=== PATIENT | female | born 1945 | race Caucasian/White ===

== ENCOUNTER 2019-03-22 09:59 | Inpatient (IN) | payer MEDICARE ==
[~2019-03-22] VITALS: Ht 162.6 cm; Wt 70.3 kg
[2019-03-22 15:00] VITALS: BP 114/62
[2019-03-22] MEDS: LIDOCAINE (700MG/PATCH) PATCH. TD SCH (16:00)
--- NOTE | 2019-03-22 16:00 | NUR ---
Pt admitted from [facility]. Report received from Giselle. Completed admission assessment. Paged Dr Wade for orders. Oriented to room and unit. Call light within reach. Will continue to monitor.
[2019-03-22] MEDS: oxyCODONE/APAP 5/325 1 TAB TABLET PO PRN (17:21)
[2019-03-22] MEDS: CYCLOBENZAPRINE 10 MG TABLET. PO PRN (17:21)
--- NOTE | 2019-03-22 17:39 | PDOC1 ---
History and Physical Date of Admission Date of Admission DATE: 03/22/19 TIME: 17:33 Identification/Chief Complaint Chief Complaint back pain Source Source: Chart review, Patient History of Present Illness History of Present Illness I was called by Dr. Sahni this AM req. this patient in transfer. She had been admitted to [facility] 1.5 days prior for acute back pain, she was mowing her yard, did well, then went to bed, and the next day could not get out of bed. acute pain to lower spinal area, with pain that is worse with movement, and has crampy tendency. the pain wraps around both flanks, not her hips, sensation to the legs is intact, no pain to legs, back and around flank only, 6/10, ok with rest, Past Medical History Past Medical History does not wear her seatbelt Cardiovascular: No pertinent hx Pulmonary: No pertinent hx Past Surgical History Past Surgical History: No pertinent history Family History Family History: Heart Disease Social History Smoke: No ALCOHOL: none Drugs: None Current Medications Current Medications Current Medications Oxycodone/ Acetaminophen (Percocet 5/325) 1 tab PRN Q4HRS PRN PO PAIN Last administered on 03/22/19at 17:21; Start 03/22/19 at 15:30 Cyclobenzaprine HCl (Flexeril) 10 mg PRN Q6HRS PRN PO MUSCLE SPASMS Last administered on 03/22/19at 17:21; Start 03/22/19 at 15:30 Morphine Sulfate (Morphine Sulfate) 4 mg PRN Q2HR PRN IV PAIN; Start 03/22/19 at 15:30 Ketorolac Tromethamine (Toradol 15mg Vial) 15 mg PRN Q6HRS PRN IV PAIN; Start 03/22/19 at 15:30; Stop 03/27/19 at 15:29 Lidocaine (Lidoderm) 1 patch DAILY TD ; Start 03/22/19 at 16:00 Miscellaneous (Lidoderm Patch Removal) 1 ea QHS MC ; Start 03/22/19 at 21:00 Allergies Allergies: Coded Allergies: No Known Drug Allergies (Unverified , 03/22/19) ROS General: YES: Chills; No: Night Sweats, Fatigue, Malaise, Appetite, Other PSYCHOLOGICAL ROS: No: Anxiety, Behavioral Disorder, Concentration difficultie, Decreased libido, Depression, Disorientation, Hallucinations, Hostility, Irritablity, Memory difficulties, Mood Swings, Obsessive thoughts, Physical abuse, Sexual abuse, Sleep disturbances, Suicidal ideation, Other Eyes: No Blurry vision, No Decreased vision, No Double vision, No Dry eyes, No Excessive tearing, No Eye Pain, No Itchy Eyes, No Loss of vision, No Photophobia, No Scotomata, No Uses contacts, No Uses glasses, No Other HEENT: No: Heacaches, Visual Changes, Hearing change, Nasal congestion, Nasal discharge, Oral lesions, Sinus pain, Sore Throat, Epistaxis, Sneezing, Snoring, Tinnitus, Vertigo, Vocal changes, Other Respiratory: No: Cough, Hemoptysis, Orthopnea, Pleuritic Pain, Shortness of breath, SOB with excertion, Sputum Changes, Stridor, Tachypnea, Wheezing, Other Cardiovascular: No Chest Pain, No Palpitations, No Orthopnea, No Paroxysmal Noc. Dyspnea, No Edema, No Lt Headedness, No Other Gastrointestinal: No Nausea, No Vomiting, No Abdominal Pain, No Diarrhea, No Constipation, No Melena, No Hematochezia, No Other Genitourinary: No Dysuria, No Frequency, No Incontinence, No Hematuria, No Retention, No Discharge, No Urgency, No Pain, No Flank Pain, No Other, No , No , No , No , No , No , No Musculoskeletal: No Gait Disturbance, No Joint Pain, No Joint Stiffness, No Joint Swelling, No Muscle Pain, No Muscular Weakness, No Pain In:, No Swelling In:, No Other Neurological: No Behavorial Changes, No Bowel/Bladder ControlChng, No Confusion, No Dizziness, No Gait Disturbance, No Headaches, No Impaired Coord/balance, No Memory Loss, No Numbness/Tingling, No Seizures, No Speech Problems, No Tremors, No Visual Changes, No Weakness, No Other Skin: No Dry Skin, No Eczema, No Hair Changes, No Lumps, No Mole Changes, No Mottling, No Nail Changes, No Pruritus, No Rash, No Skin Lesion Changes, No Other, No Acne Physical Exam General: Alert, Oriented X3, No acute distress HEENT: Atraumatic, PERRLA, EOMI, Mucous membr. moist/pink Lungs: Clear to auscultation, Normal air movement Heart: S1S2, no gallops, no murmurs Abdomen: Normal bowel sounds, Soft Rectal Exam: not examined Extremities: No cyanosis, No edema, Normal pulses Skin: No breakdown, No significant lesion Neuro: Normal gait, Normal speech, Normal tone, Sensation intact, Cranial nerves 3-12 NL Psych/Mental Status: Mood NL Vitals Vitals Vital Signs Date Time Temp Pulse Resp B/P (MAP) Pulse Ox O2 Delivery O2 Flow Rate FiO2 03/22/19 17:21 Room Air 03/22/19 15:00 97.6 99 18 114/62 (79) 96 97.6 VTE Prophylaxis Ordered VTE Prophylaxis Devices: Yes VTE Pharmacological Prophylaxi: Contraindicated Assessment/Plan Assessment/Plan acute back pain, plain film showed possible compression fx at T12, will MRI, physiatry consutled may need kyphoplasty some dyspnea on exertion, with heart murmur, JOSE ROBERTO 3/6, will check echo anemia, hgb 8.5, iron level low, TIBC low as chronic disease, will check b12, retic, consider med workup, does not appear to be blood loss LEIA ELENA MD March 22, 2019 17:39
[2019-03-22 19:00] VITALS: BP 140/84
[2019-03-22] MEDS: PATCH REMOVAL. MC SCH (19:50)
[2019-03-22] MEDS: traZODone 50 MG TABLET. PO SCH (20:53)
[2019-03-22 23:00] VITALS: BP 103/60
[2019-03-23] VITALS (12 sets, daily range): BP systolic 115–150; BP diastolic 61–82
--- NOTE | 2019-03-23 02:53 | CONS ---
DATE OF CONSULTATION: 03/22/2019 ATTENDING PHYSICIAN: Dr. Anand. The patient was seen at the request of Dr. Anand for rehab evaluation. HISTORY OF PRESENT ILLNESS: This is a 73-year-old female patient who was admitted initially on 03/20/2019 to [facility] through the Emergency Room and had radiological studies, which revealed compression fracture of thoracic vertebrae. The patient was transferred here for definitive treatment. The patient admits pain in her mid back, started about a week ago without any specific injury and it radiates to her anterior chest wall. She denies any radiation of pain to the extremities. She denies any tingling, numbness sensation in the extremities. The patient had similar back pain about 4 years ago, got better with the treatment. PAST MEDICAL HISTORY: Includes gastroesophageal reflux disease, previous urinary tract infection, rheumatoid arthritis, anxiety. 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 She denies any specific injury or accident. The patient denies any trouble with her bowel or bladder control. She had a flight of stairs with railing in place at home to manage and prior to the onset of present problem, she is not using any assistive devices to get around. PHYSICAL EXAMINATION: Today revealed a middle-aged female. She is alert, oriented to time, place, person and circumstance and follows commands appropriately. She had tenderness to palpation over mid thoracic spine and adjoining paraspinal muscles. Straight leg raising test is negative bilaterally. She had 5/5 grade muscle strength in her extremities and deep tendon reflexes are 1 to 2+ and symmetrical and she had equal perception of touch and pinprick sensation bilaterally. She is independent with rolling from side to side, but she is afraid of coming to a sitting and standing position. She had mild crepitus on range of motion of her knee joint without any obvious knee joint effusion and she had painful range of motion of both hip joints. ASSESSMENT: A middle-aged female with sudden onset lower back pain about a week ago with radiological evidence of mid thoracic vertebral body compression fracture and thoracic radiculitis, degenerative joint disease of both knees without much pain. RECOMMENDATIONS: To obtain MRI scan of the thoracic spine and to ask Interventional Radiology to consider kyphoplasty if there is a new compression fracture. Agree with the plan for physical therapy and occupational therapy. Dr. Anand, I appreciate asking me to participate in the care of this interesting patient. I will be glad to follow her with you as needed for her rehabilitation. EVIE BHATTI MD DR: CLAUDE/flor JOB#: [id number] / [id number]
[2019-03-23] MEDS: oxyCODONE/APAP 5/325 1 TAB TABLET PO PRN ×3 (03:19→19:57)
[2019-03-23] MEDS: CYCLOBENZAPRINE 10 MG TABLET. PO PRN (03:19)
[2019-03-23 05:32] LABS: BASO % 0 % (0-3); EOS # 0.1 x10^3/uL (0.0-0.7); EOS % 1 % (0-3); HEMATOCRIT 24.7 % (36.0-47.0); HEMOGLOBIN 8.1 g/dL (12.0-15.5); LYMPH # 0.6 x10^3/uL (1.0-4.8); LYMPH % 8 % (24-48); MEAN CORPUSCULAR HEMOGLOBIN 28 pg (25-35); MEAN CORPUSCULAR HGB CONC 33 g/dL (31-37); MEAN CORPUSCULAR VOLUME 84 fL (79-100); MONO # 0.8 x10^3/uL (0.0-1.1); MONO % 10 % (0-9); NEUT # 5.8 x10^3uL (1.8-7.7); NEUT % 80 % (31-73); PLATELET COUNT 261 x10^3/uL (140-400); RED BLOOD COUNT 2.94 x10^6/uL (3.50-5.40); RED CELL DISTRIBUTION WIDTH 15.6 % (11.5-14.5); WHITE BLOOD COUNT 7.3 x10^3/uL (4.0-11.0)
[2019-03-23 05:43] LABS: ALBUMIN 2.5 g/dL (3.4-5.0); ALBUMIN/GLOBULIN RATIO 0.8 (1.0-1.7); CALCIUM 8.4 mg/dL (8.5-10.1); CREATININE 0.6 mg/dL (0.6-1.0); GFR 98.5; POTASSIUM 4.2 mmol/L (3.5-5.1); TOTAL BILIRUBIN 0.4 mg/dL (0.2-1.0); TOTAL PROTEIN 5.6 g/dL (6.4-8.2)
[2019-03-23] MEDS: LIDOCAINE (700MG/PATCH) PATCH. TD SCH (07:34)
--- NOTE | 2019-03-23 08:17 | PDOC ---
PROGRESS NOTES Chief Complaint Chief Complaint Acute back pain, plain film showed possible compression fx at T12, will MRI, physiatry consulted - may need kyphoplasty or treatment for discitis, will check sed rate and crp, consult ID Heart murmur - possible mitral valve flair leaflet, consult cardiology Anemia, hgb 8.5, iron level low, TIBC low as chronic disease, b12 WNL, retic WNL, possibly hemolyzing from flail valve or possibly with infection of spine History of Present Illness History of Present Illness She had been admitted to [place] 1.5 days prior for acute back pain, she was mowing her yard, did well, then went to bed, and the next day could not get out of bed. Acute pain to lower spinal area, with pain that is worse with movement, and has crampy tendency. the pain wraps around both flanks, not her hips, sensation to the legs is intact, no pain to legs, back and around flank only, 6/10, ok with rest. She was noted with anemia, echo reviewed showing mitral regurgitation, discussed need for MRI and ADALBERTO today Vitals Vitals Vital Signs Date Time Temp Pulse Resp B/P (MAP) Pulse Ox O2 Delivery O2 Flow Rate FiO2 03/23/19 07:38 Room Air 03/23/19 03:19 16 03/23/19 03:00 97.9 113 150/79 (102) 91 97.9 Physical Exam General: Alert, Oriented X3, No acute distress Abdomen: Normal bowel sounds, Soft Extremities: No cyanosis, No edema, Normal pulses Skin: No breakdown, No significant lesion Labs LABS Laboratory Tests Test 03/23/19 05:00 White Blood Count 7.3 x10^3/uL (4.0-11.0) Red Blood Count 2.93 x10^6/uL (3.50-5.70) Hemoglobin 8.1 g/dL (12.0-15.5) Hematocrit 24.7 % (36.0-47.0) Mean Corpuscular Volume 84 fL (79-100) Mean Corpuscular Hemoglobin 28 pg (25-35) Mean Corpuscular Hemoglobin Concent 33 g/dL (31-37) Red Cell Distribution Width 15.6 % (11.5-14.5) Platelet Count 261 x10^3/uL (140-400) Neutrophils (%) (Auto) 80 % (31-73) Lymphocytes (%) (Auto) 8 % (24-48) Monocytes (%) (Auto) 10 % (0-9) Eosinophils (%) (Auto) 1 % (0-3) Basophils (%) (Auto) 0 % (0-3) Neutrophils # (Auto) 5.8 x10^3uL (1.8-7.7) Lymphocytes # (Auto) 0.6 x10^3/uL (1.0-4.8) Monocytes # (Auto) 0.8 x10^3/uL (0.0-1.1) Eosinophils # (Auto) 0.1 x10^3/uL (0.0-0.7) Basophils # (Auto) 0.0 x10^3/uL (0.0-0.2) Absolute Reticulocyte Count 0.083 x10^6/uL (0.020-0.120) Percent Reticulocyte Count 2.8 % (0.5-2.3) Immature Reticulocyte Fraction 0.52 (0.20-0.60) Sodium Level 133 mmol/L (136-145) Potassium Level 4.2 mmol/L (3.5-5.1) Chloride Level 98 mmol/L (98-107) Carbon Dioxide Level 27 mmol/L (21-32) Anion Gap 8 (6-14) Blood Urea Nitrogen 5 mg/dL (7-20) Creatinine 0.6 mg/dL (0.6-1.0) Estimated GFR (Cockcroft-Gault) 98.5 BUN/Creatinine Ratio 8 (6-20) Glucose Level 111 mg/dL (70-99) Calcium Level 8.4 mg/dL (8.5-10.1) Total Bilirubin 0.4 mg/dL (0.2-1.0) Aspartate Amino Transf (AST/SGOT) 53 U/L (15-37) Alanine Aminotransferase (ALT/SGPT) 78 U/L (14-59) Alkaline Phosphatase 196 U/L (46-116) Lactate Dehydrogenase 280 U/L (81-234) Total Protein 5.6 g/dL (6.4-8.2) Albumin 2.5 g/dL (3.4-5.0) Albumin/Globulin Ratio 0.8 (1.0-1.7) Comment Review of Relevant I have reviewed the following items tolu (where applicable) has been applied. Labs Laboratory Tests Test 03/23/19 05:00 White Blood Count 7.3 x10^3/uL (4.0-11.0) Red Blood Count 2.93 x10^6/uL (3.50-5.70) Hemoglobin 8.1 g/dL (12.0-15.5) Hematocrit 24.7 % (36.0-47.0) Mean Corpuscular Volume 84 fL (79-100) Mean Corpuscular Hemoglobin 28 pg (25-35) Mean Corpuscular Hemoglobin Concent 33 g/dL (31-37) Red Cell Distribution Width 15.6 % (11.5-14.5) Platelet Count 261 x10^3/uL (140-400) Neutrophils (%) (Auto) 80 % (31-73) Lymphocytes (%) (Auto) 8 % (24-48) Monocytes (%) (Auto) 10 % (0-9) Eosinophils (%) (Auto) 1 % (0-3) Basophils (%) (Auto) 0 % (0-3) Neutrophils # (Auto) 5.8 x10^3uL (1.8-7.7) Lymphocytes # (Auto) 0.6 x10^3/uL (1.0-4.8) Monocytes # (Auto) 0.8 x10^3/uL (0.0-1.1) Eosinophils # (Auto) 0.1 x10^3/uL (0.0-0.7) Basophils # (Auto) 0.0 x10^3/uL (0.0-0.2) Absolute Reticulocyte Count 0.083 x10^6/uL (0.020-0.120) Percent Reticulocyte Count 2.8 % (0.5-2.3) Immature Reticulocyte Fraction 0.52 (0.20-0.60) Sodium Level 133 mmol/L (136-145) Potassium Level 4.2 mmol/L (3.5-5.1) Chloride Level 98 mmol/L (98-107) Carbon Dioxide Level 27 mmol/L (21-32) Anion Gap 8 (6-14) Blood Urea Nitrogen 5 mg/dL (7-20) Creatinine 0.6 mg/dL (0.6-1.0) Estimated GFR (Cockcroft-Gault) 98.5 BUN/Creatinine Ratio 8 (6-20) Glucose Level 111 mg/dL (70-99) Calcium Level 8.4 mg/dL (8.5-10.1) Total Bilirubin 0.4 mg/dL (0.2-1.0) Aspartate Amino Transf (AST/SGOT) 53 U/L (15-37) Alanine Aminotransferase (ALT/SGPT) 78 U/L (14-59) Alkaline Phosphatase 196 U/L (46-116) Lactate Dehydrogenase 280 U/L (81-234) Total Protein 5.6 g/dL (6.4-8.2) Albumin 2.5 g/dL (3.4-5.0) Albumin/Globulin Ratio 0.8 (1.0-1.7) Laboratory Tests Test 03/23/19 05:00 White Blood Count 7.3 x10^3/uL (4.0-11.0) Red Blood Count 2.93 x10^6/uL (3.50-5.70) Hemoglobin 8.1 g/dL (12.0-15.5) Hematocrit 24.7 % (36.0-47.0) Mean Corpuscular Volume 84 fL (79-100) Mean Corpuscular Hemoglobin 28 pg (25-35) Mean Corpuscular Hemoglobin Concent 33 g/dL (31-37) Red Cell Distribution Width 15.6 % (11.5-14.5) Platelet Count 261 x10^3/uL (140-400) Neutrophils (%) (Auto) 80 % (31-73) Lymphocytes (%) (Auto) 8 % (24-48) Monocytes (%) (Auto) 10 % (0-9) Eosinophils (%) (Auto) 1 % (0-3) Basophils (%) (Auto) 0 % (0-3) Neutrophils # (Auto) 5.8 x10^3uL (1.8-7.7) Lymphocytes # (Auto) 0.6 x10^3/uL (1.0-4.8) Monocytes # (Auto) 0.8 x10^3/uL (0.0-1.1) Eosinophils # (Auto) 0.1 x10^3/uL (0.0-0.7) Basophils # (Auto) 0.0 x10^3/uL (0.0-0.2) Absolute Reticulocyte Count 0.083 x10^6/uL (0.020-0.120) Percent Reticulocyte Count 2.8 % (0.5-2.3) Immature Reticulocyte Fraction 0.52 (0.20-0.60) Sodium Level 133 mmol/L (136-145) Potassium Level 4.2 mmol/L (3.5-5.1) Chloride Level 98 mmol/L (98-107) Carbon Dioxide Level 27 mmol/L (21-32) Anion Gap 8 (6-14) Blood Urea Nitrogen 5 mg/dL (7-20) Creatinine 0.6 mg/dL (0.6-1.0) Estimated GFR (Cockcroft-Gault) 98.5 BUN/Creatinine Ratio 8 (6-20) Glucose Level 111 mg/dL (70-99) Calcium Level 8.4 mg/dL (8.5-10.1) Total Bilirubin 0.4 mg/dL (0.2-1.0) Aspartate Amino Transf (AST/SGOT) 53 U/L (15-37) Alanine Aminotransferase (ALT/SGPT) 78 U/L (14-59) Alkaline Phosphatase 196 U/L (46-116) Lactate Dehydrogenase 280 U/L (81-234) Total Protein 5.6 g/dL (6.4-8.2) Albumin 2.5 g/dL (3.4-5.0) Albumin/Globulin Ratio 0.8 (1.0-1.7) Medications Current Medications Oxycodone/ Acetaminophen (Percocet 5/325) 1 tab PRN Q4HRS PRN PO PAIN Last administered on 03/23/19at 07:34; Start 03/22/19 at 15:30 Cyclobenzaprine HCl (Flexeril) 10 mg PRN Q6HRS PRN PO MUSCLE SPASMS Last administered on 03/23/19at 03:19; Start 03/22/19 at 15:30 Morphine Sulfate (Morphine Sulfate) 4 mg PRN Q2HR PRN IV PAIN; Start 03/22/19 at 15:30 Ketorolac Tromethamine (Toradol 15mg Vial) 15 mg PRN Q6HRS PRN IV PAIN; Start 03/22/19 at 15:30; Stop 03/27/19 at 15:29 Lidocaine (Lidoderm) 1 patch DAILY TD Last administered on 03/23/19at 07:34; Start 03/22/19 at 16:00 Miscellaneous (Lidoderm Patch Removal) 1 ea QHS MC ; Start 03/22/19 at 21:00 Trazodone HCl (Desyrel) 50 mg QHS PO Last administered on 03/22/19at 20:53; Start 03/22/19 at 21:00 Active Scripts Active Reported No Known Medications Prior To Admisstion (Info) Each 1 Each MC DAILY Vitals/I & O Vital Sign - Last 24 Hours 03/22/19 03/22/19 03/22/19 03/22/19 15:00 16:30 17:21 19:00 Temp 97.6 98.5 97.6 98.5 Pulse 99 100 Resp 18 18 B/P (MAP) 114/62 (79) 140/84 (102) Pulse Ox 96 94 O2 Delivery Room Air Room Air Room Air Room Air 03/22/19 03/22/19 03/23/19 03/23/19 20:00 23:00 03:00 03:19 Temp 98.6 97.9 98.6 97.9 Pulse 107 113 Resp 18 18 16 B/P (MAP) 103/60 (74) 150/79 (102) Pulse Ox 91 91 O2 Delivery Room Air Room Air Room Air Room Air 03/23/19 03/23/19 03/23/19 04:30 07:34 07:38 O2 Delivery Room Air Room Air Room Air Intake and Output 03/22/19 03/22/19 03/23/19 14:59 22:59 06:59 Intake Total 224 ml 120 ml Balance 224 ml 120 ml Images MRI Thoracic spine - 1. There is old T12 compression fracture, osseous retropulsion superiorly with mild indentation upon the ventral thecal sac. 2. There is T10-T11 endplate edema greater on the left, also some mild increased signal in the T10-T11 intervertebral disc space greater on the left. While findings could be related to degenerative disc disease and reactive marrow edema, sequela of early infectious spondylitis is not excludable by imaging. Short-term follow-up imaging such as in 10 days could be beneficial if clinical suspicion for infection. BRIAN SALAS MD March 23, 2019 08:17
--- NOTE | 2019-03-23 09:36 | CARD ---
MR#: [id number] Date of Study: 03/23/2019 Ordering Physician: LEIA ELENA, Referring Physician: LEIA ELENA, Tech: Angelita Marie PRIYANKA APPROVED REPORT EXAM: Two-dimensional and M-mode echocardiogram with Doppler and color Doppler. Other Information Quality : GoodHR: 105bpm Rhythm : Tachycardia INDICATION Murmur 2D DIMENSIONS RVDd3.4 (2.9-3.5cm)Left Atrium(2D)4.1 (1.6-4.0cm) IVSd1.4 (0.7-1.1cm)Aortic Root(2D)3.8 (2.0-3.7cm) LVDd4.7 (3.9-5.9cm)LVOT Diameter2.2 (1.8-2.4cm) PWd1.0 (0.7-1.1cm)LVDs3.0 (2.5-4.0cm) FS (%) 36.9 %SV68.1 ml LVEF(%)66.7 (>50%) M-Mode DIMENSIONS Left Atrium(MM)4.44 (2.5-4.0cm)Aortic Root3.54 (2.2-3.7cm) Aortic Valve AoV Peak Abel.174.9cm/sAoV VTI25.0cm AO Peak GR.12.2mmHgLVOT Peak Abel.88.9cm/s AO Mean GR.6mmHgAVA (VMAX)1.96cm2 LAINA (VTI)2.00cm2 Mitral Valve MV E Qjsdgkyc153.3cm/sMV E Peak Gr.6mmHg MV DECEL [id number] A Dgueptbl20.6cm/s MV E Mean Gr.3mmHgE/A Ratio1.7 Pulmonary Valve PV Peak Tkvgqjqz209.3cm/s Tricuspid Valve TR P. Txfgsjfy812ri/sRAP [id number] TR Peak Gr.05moYvYRTX46slDx LEFT VENTRICLE The left ventricle is normal size. There is mild concentric left ventricular hypertrophy. The left ve ntricular systolic function is normal and the ejection fraction is within normal range. The Ejection Fraction is 60-65%. There is normal LV segmental wall motion. Transmitral Doppler flow pattern is Gra de II-pseudonormal filling dynamics. RIGHT VENTRICLE The right ventricle is normal size. There is normal right ventricular wall thickness. The right ventr icular systolic function is normal. ATRIA The left atrium is mildly dilated. The right atrium size is normal. The interatrial septum is intact with no evidence for an atrial septal defect or patent foramen ovale as noted on 2-D or Doppler imagi ng. AORTIC VALVE The aortic valve is mildly calcified. The aortic valve is trileaflet. Doppler and Color Flow revealed no significant aortic regurgitation. There is no significant aortic valvular stenosis. MITRAL VALVE The mitral valve is thickened but opens well. There is a partially flail posterior mitral valve leafl et. There is no mitral valve stenosis. Doppler and Color-flow revealed moderate mitral regurgitation. The mitral regurgitant jet is eccentrically directed. TRICUSPID VALVE The tricuspid valve is normal in structure and function. Doppler and Color Flow revealed trace tricus pid regurgitation. There is mild-moderate pulmonary hypertension. The PA pressure was estimated at 40 mmHg. There is no tricuspid valve prolapse or vegetation. There is no tricuspid valve stenosis. PULMONIC VALVE The pulmonary valve is normal in structure and function. Doppler and Color Flow revealed trace pulmon ic valvular regurgitation. There is no pulmonic valvular stenosis. GREAT VESSELS The aortic root is mildly enlarged. The ascending aorta is normal in size. The IVC is normal in size and collapses >50% with inspiration. PERICARDIAL EFFUSION There is no evidence of significant pericardial effusion. Critical Notification Critical Value: No <Conclusion> There is mild concentric left ventricular hypertrophy. The left ventricular systolic function is normal and the ejection fraction is within normal range. Th e Ejection Fraction is 60-65%. There is normal LV segmental wall motion. There is a partially flail posterior mitral valve leaflet. Doppler and Color-flow revealed moderate mitral regurgitation. The mitral regurgitant jet is eccentr ically directed. Recommend ADALBERTO based on clinical scenario for further evaluation of posterior leaflet flail. Signed by : Lico Chase, Electronically Approved : 03/23/2019 09:35:10
[2019-03-23] MEDS: MORPHINE SULFATE 4 MG/ML VIAL. IV PRN ×3 (10:12→16:47)
--- NOTE | 2019-03-23 11:34 | RAD ---
MRI Thoracic Spine without contrast History: Mid back pain, thoracic radiculitis, T12 compression fracture Technique: Multiplanar, multi sequential noncontrast MR imaging was performed of the thoracic spine. Comparison: None other than CT lumbar spine exam March 20, 2019 Findings: There is some motion degradation. There is old T12 compression fracture, osseous retropulsion superiorly which indents the ventral thecal sac, overall mild attenuation of the thecal sac. There is edema of the T10-T11 endplates greater on the left, mild increased T2 and STIR signal in the T10-T11 intervertebral disc space greater on the left. There is mild superior endplate concavity of T10 although not associated with significant adjacent marrow edema. There is more advanced degenerative disc disease T7-8, also moderate to severe narrowing of T10-T11 intervertebral disc space, to a somewhat lesser degree at T5-T6, minimally at T6-T7 and T8-T9. Thoracic cord caliber is within normal limits without defined or expansile signal abnormality. There is minimal disc osteophyte complex and shallow protrusion at T10-T11. There is buckling of the ligamentum flavum at T10-11, overall mild attenuation of the thecal sac at this level. Facet degenerative change contributes to moderate narrowing of the left T10-T11 neural foramen, mild narrowing on the left at T7-T8 and also mild narrowing such on the right at T8-T9, T9-10, T10-T11, and T4-T5. As seen at the superior aspect of exam, there is cervical degenerative disc disease greatest C5-6 and C6-7 also spondylosis at these levels and likely mild spinal stenosis. There is very small right pleural effusion. Impression: 1. There is old T12 compression fracture, osseous retropulsion superiorly with mild indentation upon the ventral thecal sac. 2. There is T10-T11 endplate edema greater on the left, also some mild increased signal in the T10-T11 intervertebral disc space greater on the left. While findings could be related to degenerative disc disease and reactive marrow edema, sequela of early infectious spondylitis is not excludable by imaging. Short-term follow-up imaging such as in 10 days could be beneficial if clinical suspicion for infection. 3. Electronically signed by: Hernan So MD (03/23/2019 11:31 AM) [id number]
--- NOTE | 2019-03-23 11:42 | PDOC2 ---
ESTHER BUSTILLOS [employer] 03/23/19 1142: CARDIAC CONSULT DATE OF CONSULT Date of Consult DATE: 03/23/19 TIME: 11:39 REASON FOR CONSULT Reason for Consult: echo with flair mitral, ADALBERTO REFERRING PHYSICIAN Referring Physician: Mauro SOURCE Source: Chart review, Patient HISTORY OF PRESENT ILLNESS HISTORY OF PRESENT ILLNESS This is a pleasant 73 yo female admitted for complains of back pain. She came from [place]. She push mow her lawn few days ago and she finished the job but her back started hurting. She push mows her law once a week without difficulty. Denies any chest pain, SOA, palpitations. No mention of her having a murmur but has not been see regularly by PCP for about 5 yrs prior to her seeing Dr. Sahni. She does not take any medications except for supplement and does have malabsorption issues taking enzymes. She was told that she was anemic as well. No prior hx of CAD, arrhythmias, valvular disease and no prior cardiac testin. No frequent dizziness or passing out. Asid efrom her back which she is needing kyphoplasty, the consult is for her abnormal mitral valve with loud murmur. So far she remains asymptomatic with it. No childhood heart disease nor rheumatic heart disease but does have RA which is in remission. PAST MEDICAL HISTORY Cardiovascular: HTN, Other (palpitations 5 yrs ago) Pulmonary: No pertinent hx CENTRAL NERVOUS SYSTEM: Other (No pertinent history) GI: GERD, Other (malabsorption ) Heme/Onc: Anemia NOS Hepatobiliary: No pertinent hx Musculoskeletal: Osteoarthritis Rheumatologic: No pertinent hx, Rheumatoid arthritis Infectious disease: No pertinent hx ENT: Allergic Rhinitis Renal/: No pertinent hx Endocrine: No pertinent hx PAST SURGICAL HISTORY Past Surgical History: Tubal Ligation FAMILY HISTORY Family History noncontributory to CV SOCIAL HISTORY Smoke: <1 pack per day ALCOHOL: none Drugs: None Lives: Alone CURRENT MEDICATIONS CURRENT MEDICATIONS Current Medications Medications (Trade) Dose Ordered Sig/Rosina Route PRN Reason Start Time Stop Time Status Last Admin Dose Admin Oxycodone/ Acetaminophen (Percocet 5/325) 1 tab PRN Q4HRS PRN PO PAIN 03/22/19 15:30 03/23/19 07:34 Cyclobenzaprine HCl (Flexeril) 10 mg PRN Q6HRS PRN PO MUSCLE SPASMS 03/22/19 15:30 03/23/19 03:19 Morphine Sulfate (Morphine Sulfate) 4 mg PRN Q2HR PRN IV PAIN 03/22/19 15:30 03/23/19 10:12 Lidocaine (Lidoderm) 1 patch DAILY TD 03/22/19 16:00 03/23/19 07:34 Trazodone HCl (Desyrel) 50 mg QHS PO 03/22/19 21:00 03/22/19 20:53 ALLERGIES ALLERGIES: Coded Allergies: No Known Drug Allergies (Unverified , 03/22/19) ROS Review of System 14 point ROS evaluated with pertinent positives noted per HPI PHYSICAL EXAM General: Alert, Oriented X3, Cooperative, No acute distress HEENT: Atraumatic, EOMI Lungs: Clear to auscultation, Normal air movement Heart: Regular rate (SR) Abdomen: Soft, No tenderness Extremities: No cyanosis, Other (1+bilateral LE pitting edema) Skin: No breakdown, No significant lesion Neuro: Normal speech, Sensation intact Psych/Mental Status: Mental status NL, Mood NL MUSCULOSKELETAL: Osteoarthritic changes both hands VITALS VITALS Vital Signs Date Time Temp Pulse Resp B/P (MAP) Pulse Ox O2 Delivery O2 Flow Rate FiO2 03/23/19 10:12 Room Air 03/23/19 07:00 98.0 105 16 120/61 (80) 91 98.0 LABS Lab: Laboratory Tests Test 03/23/19 05:00 White Blood Count 7.3 x10^3/uL (4.0-11.0) Red Blood Count 2.93 x10^6/uL (3.50-5.70) Hemoglobin 8.1 g/dL (12.0-15.5) Hematocrit 24.7 % (36.0-47.0) Mean Corpuscular Volume 84 fL (79-100) Mean Corpuscular Hemoglobin 28 pg (25-35) Mean Corpuscular Hemoglobin Concent 33 g/dL (31-37) Red Cell Distribution Width 15.6 % (11.5-14.5) Platelet Count 261 x10^3/uL (140-400) Neutrophils (%) (Auto) 80 % (31-73) Lymphocytes (%) (Auto) 8 % (24-48) Monocytes (%) (Auto) 10 % (0-9) Eosinophils (%) (Auto) 1 % (0-3) Basophils (%) (Auto) 0 % (0-3) Neutrophils # (Auto) 5.8 x10^3uL (1.8-7.7) Lymphocytes # (Auto) 0.6 x10^3/uL (1.0-4.8) Monocytes # (Auto) 0.8 x10^3/uL (0.0-1.1) Eosinophils # (Auto) 0.1 x10^3/uL (0.0-0.7) Basophils # (Auto) 0.0 x10^3/uL (0.0-0.2) Absolute Reticulocyte Count 0.083 x10^6/uL (0.020-0.120) Percent Reticulocyte Count 2.8 % (0.5-2.3) Immature Reticulocyte Fraction 0.52 (0.20-0.60) Sodium Level 133 mmol/L (136-145) Potassium Level 4.2 mmol/L (3.5-5.1) Chloride Level 98 mmol/L (98-107) Carbon Dioxide Level 27 mmol/L (21-32) Anion Gap 8 (6-14) Blood Urea Nitrogen 5 mg/dL (7-20) Creatinine 0.6 mg/dL (0.6-1.0) Estimated GFR (Cockcroft-Gault) 98.5 BUN/Creatinine Ratio 8 (6-20) Glucose Level 111 mg/dL (70-99) Calcium Level 8.4 mg/dL (8.5-10.1) Iron Level 23 ug/dL (50-170) Total Iron Binding Capacity 177 ug/dL (250-450) Iron Saturation 13 % (15-34) Total Bilirubin 0.4 mg/dL (0.2-1.0) Aspartate Amino Transf (AST/SGOT) 53 U/L (15-37) Alanine Aminotransferase (ALT/SGPT) 78 U/L (14-59) Alkaline Phosphatase 196 U/L (46-116) Lactate Dehydrogenase 280 U/L (81-234) Total Protein 5.6 g/dL (6.4-8.2) Albumin 2.5 g/dL (3.4-5.0) Albumin/Globulin Ratio 0.8 (1.0-1.7) Vitamin B12 Level 1077 pg/mL (247-911) ECHOCARDIOGRAM ECHOCARDIOGRAM <Conclusion> There is mild concentric left ventricular hypertrophy. The left ventricular systolic function is normal and the ejection fraction is within normal range. The Ejection Fraction is 60-65%. There is normal LV segmental wall motion. There is a partially flail posterior mitral valve leaflet. Doppler and Color-flow revealed moderate mitral regurgitation. The mitral regurgitant jet is eccentrically directed. Recommend ADALBERTO based on clinical scenario for further evaluation of posterior leaflet flail. DATE: 03/23/19 0966 ASSESSMENT/PLAN ASSESSMENT/PLAN 1. Moderate MR with flail posterior MV: EF and WM nml. No symptoms. 2. Mid Back pain thoracic compression possible kyphoplasty 3. Normocytic anemia: Hgb 8.1, per PCP 4. Protein malnutrition 5. Hx of HTN: controlled, no meds 6. Hx of RA: in remission 7. Tobaccoism Recommendations 1. ADALBERTO today for further dlineation. Risks and benefits explained and agreeable to proceed. 2. Supportive care. Follow up in office. 3. EKG and lipids today. 4. Smoking cessation EMILY SOTELO MD 03/23/19 5296: CARDIAC CONSULT ASSESSMENT/PLAN ASSESSMENT/PLAN Pt. seen and examined. Agree with above RN NEONATAL note. 73 y.o woman with incidental partial posterior leaflet flail. No prior cardiac history. Discussed risks/benefits of ADALBERTO inpt versus outpt. She prefers to get this accomplished inpt. Plan for ADALBERTO later today. ESTHER BUSTILLOS APRN March 23, 2019 11:42 EMILY SOTELO MD March 23, 2019 14:56
[2019-03-23] MEDS ORDERED: IV RINGERS,LACTATED 1000ML 1,000 ML IV SCH (12:57)
[2019-03-23] MEDS ORDERED: ONDANSETRON PF 4 MG/2 ML VIAL. IV PRN (13:00)
[2019-03-23] MEDS ORDERED: PROCHLORPERAZINE 10 MG/2 ML VIAL. IV PRN (13:00)
[2019-03-23] MEDS ORDERED: fentaNYL PF VIAL 100 MCG/2 ML VIAL IV PRN ×2 (13:00)
[2019-03-23] MEDS ORDERED: HYDROmorphone 2 MG/ML VIAL IV PRN (13:00)
[2019-03-23] MEDS ORDERED: MORPHINE SULFATE 2 MG/ML VIAL. IV PRN (13:00)
--- NOTE | 2019-03-23 13:21 | NUR ---
SW will continue to follow. Discussed with RN, pt is from home with daughter. Had MRI this morning, possibility of a kyphoplasty. Pt having some cardiac problems, ADALBERTO at 1430. PT/OT ordered. SW will continue to follow.
--- NOTE | 2019-03-23 13:40 | EKG ---
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
[2019-03-23] MEDS: fentaNYL 25MCG/HR PATCH 1 PATCH PATCH.TD72 TD SCH (13:45)
[2019-03-23] MEDS ORDERED: BENZOCAINE ONE 20% MUCOSAL SPRAY. MM (13:45)
[2019-03-23] MEDS ORDERED: LIDOCAINE 2% JELLY 6ML IN APPLICATOR. MM ONE (13:45)
[2019-03-23] MEDS ORDERED: LIDOCAINE 2% VISCOUS 15 ML SOLUTION. SWSW ONE (13:45)
[2019-03-23] MEDS ORDERED: LIDOCAINE 2% VISCOUS 15 ML SOLUTION. ONE (13:51)
[2019-03-23] MEDS ORDERED: LIDOCAINE 2% TOPICAL JELLY 30GM TUBE. TP ONE (14:00)
[2019-03-23 14:03] LABS: CHOLESTEROL/HDL RATIO 6.8
[2019-03-23] MEDS ORDERED: PROPOFOL 20 ML IV ONE (14:44)
--- NOTE | 2019-03-23 16:14 | PDOC ---
PROGRESS NOTES Subjective Subjective No new complaints. 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 Plan Plan of Care Agree with plans for infectious disease consult and I spoke to about cancelling kyphoplasty. Comment Review of Relevant I have reviewed the following items tolu (where applicable) has been applied. Labs Laboratory Tests Test 03/23/19 05:00 White Blood Count 7.3 x10^3/uL (4.0-11.0) Red Blood Count 2.93 x10^6/uL (3.50-5.70) Hemoglobin 8.1 g/dL (12.0-15.5) Hematocrit 24.7 % (36.0-47.0) Mean Corpuscular Volume 84 fL (79-100) Mean Corpuscular Hemoglobin 28 pg (25-35) Mean Corpuscular Hemoglobin Concent 33 g/dL (31-37) Red Cell Distribution Width 15.6 % (11.5-14.5) Platelet Count 261 x10^3/uL (140-400) Neutrophils (%) (Auto) 80 % (31-73) Lymphocytes (%) (Auto) 8 % (24-48) Monocytes (%) (Auto) 10 % (0-9) Eosinophils (%) (Auto) 1 % (0-3) Basophils (%) (Auto) 0 % (0-3) Neutrophils # (Auto) 5.8 x10^3uL (1.8-7.7) Lymphocytes # (Auto) 0.6 x10^3/uL (1.0-4.8) Monocytes # (Auto) 0.8 x10^3/uL (0.0-1.1) Eosinophils # (Auto) 0.1 x10^3/uL (0.0-0.7) Basophils # (Auto) 0.0 x10^3/uL (0.0-0.2) Absolute Reticulocyte Count 0.083 x10^6/uL (0.020-0.120) Percent Reticulocyte Count 2.8 % (0.5-2.3) Immature Reticulocyte Fraction 0.52 (0.20-0.60) Sodium Level 133 mmol/L (136-145) Potassium Level 4.2 mmol/L (3.5-5.1) Chloride Level 98 mmol/L (98-107) Carbon Dioxide Level 27 mmol/L (21-32) Anion Gap 8 (6-14) Blood Urea Nitrogen 5 mg/dL (7-20) Creatinine 0.6 mg/dL (0.6-1.0) Estimated GFR (Cockcroft-Gault) 98.5 BUN/Creatinine Ratio 8 (6-20) Glucose Level 111 mg/dL (70-99) Calcium Level 8.4 mg/dL (8.5-10.1) Iron Level 23 ug/dL (50-170) Total Iron Binding Capacity 177 ug/dL (250-450) Iron Saturation 13 % (15-34) Total Bilirubin 0.4 mg/dL (0.2-1.0) Aspartate Amino Transf (AST/SGOT) 53 U/L (15-37) Alanine Aminotransferase (ALT/SGPT) 78 U/L (14-59) Alkaline Phosphatase 196 U/L (46-116) Lactate Dehydrogenase 280 U/L (81-234) Total Protein 5.6 g/dL (6.4-8.2) Albumin 2.5 g/dL (3.4-5.0) Albumin/Globulin Ratio 0.8 (1.0-1.7) Triglycerides Level 117 mg/dL (0-150) Cholesterol Level 135 mg/dL (0-200) LDL Cholesterol, Calculated 92 mg/dL (0-100) VLDL Cholesterol, Calculated 23 mg/dL (0-40) Non-HDL Cholesterol Calculated 115 mg/dL (0-129) HDL Cholesterol 20 mg/dL (40-60) Cholesterol/HDL Ratio 6.8 Vitamin B12 Level 1077 pg/mL (247-911) Laboratory Tests Test 03/23/19 05:00 White Blood Count 7.3 x10^3/uL (4.0-11.0) Red Blood Count 2.93 x10^6/uL (3.50-5.70) Hemoglobin 8.1 g/dL (12.0-15.5) Hematocrit 24.7 % (36.0-47.0) Mean Corpuscular Volume 84 fL (79-100) Mean Corpuscular Hemoglobin 28 pg (25-35) Mean Corpuscular Hemoglobin Concent 33 g/dL (31-37) Red Cell Distribution Width 15.6 % (11.5-14.5) Platelet Count 261 x10^3/uL (140-400) Neutrophils (%) (Auto) 80 % (31-73) Lymphocytes (%) (Auto) 8 % (24-48) Monocytes (%) (Auto) 10 % (0-9) Eosinophils (%) (Auto) 1 % (0-3) Basophils (%) (Auto) 0 % (0-3) Neutrophils # (Auto) 5.8 x10^3uL (1.8-7.7) Lymphocytes # (Auto) 0.6 x10^3/uL (1.0-4.8) Monocytes # (Auto) 0.8 x10^3/uL (0.0-1.1) Eosinophils # (Auto) 0.1 x10^3/uL (0.0-0.7) Basophils # (Auto) 0.0 x10^3/uL (0.0-0.2) Absolute Reticulocyte Count 0.083 x10^6/uL (0.020-0.120) Percent Reticulocyte Count 2.8 % (0.5-2.3) Immature Reticulocyte Fraction 0.52 (0.20-0.60) Sodium Level 133 mmol/L (136-145) Potassium Level 4.2 mmol/L (3.5-5.1) Chloride Level 98 mmol/L (98-107) Carbon Dioxide Level 27 mmol/L (21-32) Anion Gap 8 (6-14) Blood Urea Nitrogen 5 mg/dL (7-20) Creatinine 0.6 mg/dL (0.6-1.0) Estimated GFR (Cockcroft-Gault) 98.5 BUN/Creatinine Ratio 8 (6-20) Glucose Level 111 mg/dL (70-99) Calcium Level 8.4 mg/dL (8.5-10.1) Iron Level 23 ug/dL (50-170) Total Iron Binding Capacity 177 ug/dL (250-450) Iron Saturation 13 % (15-34) Total Bilirubin 0.4 mg/dL (0.2-1.0) Aspartate Amino Transf (AST/SGOT) 53 U/L (15-37) Alanine Aminotransferase (ALT/SGPT) 78 U/L (14-59) Alkaline Phosphatase 196 U/L (46-116) Lactate Dehydrogenase 280 U/L (81-234) Total Protein 5.6 g/dL (6.4-8.2) Albumin 2.5 g/dL (3.4-5.0) Albumin/Globulin Ratio 0.8 (1.0-1.7) Triglycerides Level 117 mg/dL (0-150) Cholesterol Level 135 mg/dL (0-200) LDL Cholesterol, Calculated 92 mg/dL (0-100) VLDL Cholesterol, Calculated 23 mg/dL (0-40) Non-HDL Cholesterol Calculated 115 mg/dL (0-129) HDL Cholesterol 20 mg/dL (40-60) Cholesterol/HDL Ratio 6.8 Vitamin B12 Level 1077 pg/mL (247-911) Medications Current Medications Oxycodone/ Acetaminophen (Percocet 5/325) 1 tab PRN Q4HRS PRN PO PAIN Last administered on 03/23/19at 07:34; Start 03/22/19 at 15:30 Cyclobenzaprine HCl (Flexeril) 10 mg PRN Q6HRS PRN PO MUSCLE SPASMS Last administered on 03/23/19at 03:19; Start 03/22/19 at 15:30 Morphine Sulfate (Morphine Sulfate) 4 mg PRN Q2HR PRN IV PAIN, MOD TO SEVERE Last administered on 03/23/19at 13:48; Start 03/22/19 at 15:30 Ketorolac Tromethamine (Toradol 15mg Vial) 15 mg PRN Q6HRS PRN IV MILD PAIN; Start 03/22/19 at 15:30; Stop 03/27/19 at 15:29 Lidocaine (Lidoderm) 1 patch DAILY TD Last administered on 03/23/19at 07:34; Start 03/22/19 at 16:00 Miscellaneous (Lidoderm Patch Removal) 1 ea QHS ; Start 03/22/19 at 21:00 Trazodone HCl (Desyrel) 50 mg QHS PO Last administered on 03/22/19at 20:53; Start 03/22/19 at 21:00 Ondansetron HCl (Zofran) 4 mg PRN Q6HRS PRN IV NAUSEA/VOMITING; Start 03/23/19 at 13:00; Stop 03/24/19 at 12:59 Fentanyl Citrate (Fentanyl 2ml Vial) 25 mcg PRN Q5MIN PRN IV MILD PAIN; Start 03/23/19 at 13:00; Stop 03/24/19 at 12:59 Fentanyl Citrate (Fentanyl 2ml Vial) 50 mcg PRN Q5MIN PRN IV MODERATE TO SEVERE PAIN; Start 03/23/19 at 13:00; Stop 03/24/19 at 12:59 Morphine Sulfate (Morphine Sulfate) 1 mg PRN Q10MIN PRN IV SEVERE PAIN; Start 03/23/19 at 13:00; Stop 03/24/19 at 12:59 Ringer's Solution 1,000 ml @ 30 mls/hr Q24H IV Last administered on 03/23/19at 13:45; Start 03/23/19 at 12:57; Stop 03/24/19 at 00:56 Hydromorphone HCl (Dilaudid) 0.5 mg PRN Q10MIN PRN IV SEV PAIN, Second choice; Start 03/23/19 at 13:00; Stop 03/24/19 at 12:59 Prochlorperazine Edisylate (Compazine) 5 mg PACU PRN PRN IV NAUSEA, MRX1; Start 03/23/19 at 13:00; Stop 03/24/19 at 12:59 Fentanyl (Duragesic 25mcg/ Hr Patch) 1 patch Q3DAYS TD Last administered on 03/23/19at 13:45; Start 03/23/19 at 14:00 Benzocaine (Hurricaine One) 3 spray 1X ONCE MM Last administered on 03/23/19at 14:45; Start 03/23/19 at 13:45; Stop 03/23/19 at 13:50; Status DC Lidocaine HCl (Glydo (Lidocaine) Jelly) 1 gordy 1X ONCE MM ; Start 03/23/19 at 13:45; Stop 03/23/19 at 13:50; Status DC Lidocaine HCl (Viscous Lidocaine) 15 ml 1X ONCE SWSW ; Start 03/23/19 at 13:45; Stop 03/23/19 at 13:50; Status DC Lidocaine HCl (Xylocaine 2% Topical 30gm Tube) 1 gordy 1X ONCE TP Last administered on 03/23/19at 13:45; Start 03/23/19 at 14:00; Stop 03/23/19 at 14:01; Status DC Lidocaine HCl (Viscous Lidocaine) 15 ml STK-MED ONCE .ROUTE ; Start 03/23/19 at 13:51; Stop 03/23/19 at 13:52; Status DC Propofol 20 ml @ As Directed STK-MED ONCE IV ; Start 03/23/19 at 14:44; Stop 03/23/19 at 14:45; Status DC Active Scripts Active Reported No Known Medications Prior To Admisstion (Info) Each 1 Each DAILY Vitals/I & O Vital Sign - Last 24 Hours 03/22/19 03/22/19 03/22/19 03/22/19 16:30 17:21 19:00 20:00 Temp 98.5 98.5 Pulse 100 Resp 18 B/P (MAP) 140/84 (102) Pulse Ox 94 O2 Delivery Room Air Room Air Room Air Room Air 03/22/19 03/23/19 03/23/19 03/23/19 23:00 03:00 03:19 07:00 Temp 98.6 97.9 98.0 98.6 97.9 98.0 Pulse 107 113 105 Resp 18 18 16 16 B/P (MAP) 103/60 (74) 150/79 (102) 120/61 (80) Pulse Ox 91 91 91 O2 Delivery Room Air Room Air Room Air Room Air 03/23/19 03/23/19 03/23/19 03/23/19 07:34 07:38 08:39 10:12 O2 Delivery Room Air Room Air Room Air Room Air 03/23/19 03/23/19 03/23/19 03/23/19 11:00 13:45 13:48 15:04 Temp 97.9 97.9 97.9 97.9 Pulse 105 103 Resp 16 15 B/P (MAP) 115/69 (84) 147/76 Pulse Ox 96 96 O2 Delivery Room Air Room Air Room Air Room Air O2 Flow Rate 2 03/23/19 03/23/19 03/23/19/14/19 15:13 15:13 15:20 15:35 Temp 97.9 97.9 97.9 97.9 97.9 97.9 Pulse 103 103 109 Resp 15 15 16 B/P (MAP) 131/55 111/53 116/56 Pulse Ox 96 100 98 O2 Delivery Room Air Room Air Nasal Cannula Room Air O2 Flow Rate 2 2 2 Intake and Output 03/22/19 03/22/19 03/23/19 15:00 23:00 07:00 Intake Total 224 ml 120 ml Balance 224 ml 120 ml EVIE BHATTI MD March 23, 2019 16:14
--- NOTE | 2019-03-23 16:39 | CARD ---
MR#: [id number] Date of Study: 03/23/2019 Ordering Physician: ESTHER BUSTILLOS, Referring Physician: LEIA ELENA Tech: nAgelita Marie RDCS APPROVED REPORT EXAM: Transesophageal echocardiogram with color flow Doppler. INDICATION Flail MV PROCEDURE After obtaining informed consent, patient underwent transesophageal echo in the PACU. Type of Sedation : General Anesthesia Sedation was administered by Anesthesia. Sedation was achieved with Propofol 100mg intravenously. Throughout the procedure, the blood pressure, pulse oximetry, cardiac rhythm, and rate were monitored . LEFT VENTRICLE The left ventricle is normal size. There is mild concentric left ventricular hypertrophy. The left ve ntricular systolic function is normal and the ejection fraction is within normal range. The Ejection Fraction is 55-60%. There is normal LV segmental wall motion. RIGHT VENTRICLE The right ventricle is normal size. There is normal right ventricular wall thickness. The right ventr icular systolic function is normal. ATRIA The left atrium is mildly dilated. The right atrium size is normal. The interatrial septum is intact with no evidence for an atrial septal defect or patent foramen ovale as noted on 2-D or Doppler imagi ng. There is no thrombus noted in the left atrial appendage. AORTIC VALVE The aortic valve is normal in structure and function. The aortic valve is trileaflet. Doppler and Col or Flow revealed no significant aortic regurgitation. There is no significant aortic valvular stenosi s. There is no aortic valvular vegetation. MITRAL VALVE The P3 segment of the mitral valve is flail. There is no mitral valve stenosis. The severe mitral reg urgitant jet is eccentrically directed in an anterior fashion, consistent with flail posterior leafle t. TRICUSPID VALVE The tricuspid valve is normal in structure and function. Doppler and Color Flow revealed trace tricus pid regurgitation. There is no tricuspid valve prolapse or vegetation. There is no tricuspid valve st enosis. PULMONIC VALVE The pulmonary valve is normal in structure and function. Doppler and Color Flow revealed no pulmonic valvular regurgitation. There is no pulmonic valvular stenosis. GREAT VESSELS The aortic root is normal in size. The ascending aorta is normal in size. The IVC is normal in size a nd collapses >50% with inspiration. Critical Notification Critical Value: No <Conclusion> The left ventricular systolic function is normal and the ejection fraction is within normal range. Th e Ejection Fraction is 55-60%. There is normal LV segmental wall motion. The severe mitral regurgitant jet is eccentrically directed in an anterior fashion, consistent with flail posterior leaflet. Signed by : Lico Chase, Electronically Approved : 03/23/2019 16:39:01
[2019-03-23] MEDS: PATCH REMOVAL. MC SCH (21:00)
[2019-03-23] MEDS: traZODone 50 MG TABLET. PO SCH (21:38)
[2019-03-24] VITALS (12 sets, daily range): BP systolic 97–140; BP diastolic 37–79
[2019-03-24] MEDS: MORPHINE SULFATE 4 MG/ML VIAL. IV PRN ×2 (03:27→10:11)
[2019-03-24] MEDS: oxyCODONE/APAP 5/325 1 TAB TABLET PO PRN ×3 (06:44→23:50)
[2019-03-24] MEDS: LIDOCAINE (700MG/PATCH) PATCH. TD SCH (07:24)
[2019-03-24] MEDS: CYCLOBENZAPRINE 10 MG TABLET. PO PRN ×3 (07:24→23:51)
--- NOTE | 2019-03-24 08:26 | PDOC ---
PROGRESS NOTES Chief Complaint Chief Complaint Acute back pain, plain film showed possible compression fx at T12, will MRI, physiatry consulted - may need kyphoplasty or treatment for discitis, will check sed rate and crp, consult ID Heart murmur - possible mitral valve flair leaflet, consult cardiology Anemia, hgb 8.5, iron level low, TIBC low as chronic disease, b12 WNL, retic WNL, possibly hemolyzing from flail valve or possibly with infection of spine History of Present Illness History of Present Illness She had been admitted to [facility] 1.5 days prior for acute back pain, she was mowing her yard, did well, then went to bed, and the next day could not get out of bed. Thoracic MRI shows T10-11 disc inflammatory process and endplate as well. 03/23: She was noted with anemia, echo reviewed showing mitral regurgitation, MRI - T10-11 discitis? and ADALBERTO mitral regurgitation with flail leaflet?. ESR and CRP elevated Acute pain to lower spinal area, with pain that is worse with movement, and has crampy tendency. To IR for disc biopsy and culture today. ID consulted. Questions answered to patient and daughter. Vitals Vitals Vital Signs Date Time Temp Pulse Resp B/P (MAP) Pulse Ox O2 Delivery O2 Flow Rate FiO2 03/24/19 07:00 98.0 100 18 130/70 (90) 92 Room Air 98.0 03/24/19 07:00 2.0 Physical Exam General: Alert, Oriented X3, Cooperative, No acute distress Heart: Regular rate (SR) Abdomen: Soft, No tenderness Extremities: No cyanosis, Other (1+bilateral LE pitting edema) Skin: No breakdown, No significant lesion Labs LABS Laboratory Tests Test 03/23/19 19:35 Erythrocyte Sedimentation Rate 70 (0-25) C-Reactive Protein, Quantitative 162.1 mg/L (0-3.3) Comment Review of Relevant I have reviewed the following items tolu (where applicable) has been applied. Labs Laboratory Tests Test 03/23/19 05:00 03/23/19 19:35 White Blood Count 7.3 x10^3/uL (4.0-11.0) Red Blood Count 2.93 x10^6/uL (3.50-5.70) Hemoglobin 8.1 g/dL (12.0-15.5) Hematocrit 24.7 % (36.0-47.0) Mean Corpuscular Volume 84 fL (79-100) Mean Corpuscular Hemoglobin 28 pg (25-35) Mean Corpuscular Hemoglobin Concent 33 g/dL (31-37) Red Cell Distribution Width 15.6 % (11.5-14.5) Platelet Count 261 x10^3/uL (140-400) Neutrophils (%) (Auto) 80 % (31-73) Lymphocytes (%) (Auto) 8 % (24-48) Monocytes (%) (Auto) 10 % (0-9) Eosinophils (%) (Auto) 1 % (0-3) Basophils (%) (Auto) 0 % (0-3) Neutrophils # (Auto) 5.8 x10^3uL (1.8-7.7) Lymphocytes # (Auto) 0.6 x10^3/uL (1.0-4.8) Monocytes # (Auto) 0.8 x10^3/uL (0.0-1.1) Eosinophils # (Auto) 0.1 x10^3/uL (0.0-0.7) Basophils # (Auto) 0.0 x10^3/uL (0.0-0.2) Absolute Reticulocyte Count 0.083 x10^6/uL (0.020-0.120) Percent Reticulocyte Count 2.8 % (0.5-2.3) Immature Reticulocyte Fraction 0.52 (0.20-0.60) Sodium Level 133 mmol/L (136-145) Potassium Level 4.2 mmol/L (3.5-5.1) Chloride Level 98 mmol/L (98-107) Carbon Dioxide Level 27 mmol/L (21-32) Anion Gap 8 (6-14) Blood Urea Nitrogen 5 mg/dL (7-20) Creatinine 0.6 mg/dL (0.6-1.0) Estimated GFR (Cockcroft-Gault) 98.5 BUN/Creatinine Ratio 8 (6-20) Glucose Level 111 mg/dL (70-99) Calcium Level 8.4 mg/dL (8.5-10.1) Iron Level 23 ug/dL (50-170) Total Iron Binding Capacity 177 ug/dL (250-450) Iron Saturation 13 % (15-34) Total Bilirubin 0.4 mg/dL (0.2-1.0) Aspartate Amino Transf (AST/SGOT) 53 U/L (15-37) Alanine Aminotransferase (ALT/SGPT) 78 U/L (14-59) Alkaline Phosphatase 196 U/L (46-116) Lactate Dehydrogenase 280 U/L (81-234) Total Protein 5.6 g/dL (6.4-8.2) Albumin 2.5 g/dL (3.4-5.0) Albumin/Globulin Ratio 0.8 (1.0-1.7) Triglycerides Level 117 mg/dL (0-150) Cholesterol Level 135 mg/dL (0-200) LDL Cholesterol, Calculated 92 mg/dL (0-100) VLDL Cholesterol, Calculated 23 mg/dL (0-40) Non-HDL Cholesterol Calculated 115 mg/dL (0-129) HDL Cholesterol 20 mg/dL (40-60) Cholesterol/HDL Ratio 6.8 Vitamin B12 Level 1077 pg/mL (247-911) Erythrocyte Sedimentation Rate 70 (0-25) C-Reactive Protein, Quantitative 162.1 mg/L (0-3.3) Laboratory Tests Test 03/23/19 19:35 Erythrocyte Sedimentation Rate 70 (0-25) C-Reactive Protein, Quantitative 162.1 mg/L (0-3.3) Medications Current Medications Oxycodone/ Acetaminophen (Percocet 5/325) 1 tab PRN Q4HRS PRN PO PAIN Last admi nistered on 03/24/19 06:44; Start 03/22/19 at 15:30 Cyclobenzaprine HCl (Flexeril) 10 mg PRN Q6HRS PRN PO MUSCLE SPASMS Last a dministered on 03/24/19 07:24; Start 03/22/19 at 15:30 Morphine Sulfate (Morphine Sulfate) 4 mg PRN Q2HR PRN IV PAIN, MOD TO SEVERE Last administered on 03/24/19 03:27; Start 03/22/19 at 15:30 Ketorolac Tromethamine (Toradol 15mg Vial) 15 mg PRN Q6HRS PRN IV MILD PAIN; Start 03/22/19 at 15:30; Stop 03/27/19 at 15:29 Lidocaine (Lidoderm) 1 patch DAILY TD Last administered on 5/15/19at 07:24; Start 03/22/19 at 16:00 Miscellaneous (Lidoderm Patch Removal) 1 ea QHS MC Last administered on 03/23/19at 21:00; Start 03/22/19 at 21:00 Trazodone HCl (Desyrel) 50 mg QHS PO Last administered on 03/23/19at 21:38; Start 03/22/19 at 21:00 Ondansetron HCl (Zofran) 4 mg PRN Q6HRS PRN IV NAUSEA/VOMITING; Start 03/23/19 at 13:00; Stop 03/24/19 at 12:59 Fentanyl Citrate (Fentanyl 2ml Vial) 25 mcg PRN Q5MIN PRN IV MILD PAIN; Start 03/23/19 at 13:00; Stop 03/24/19 at 12:59 Fentanyl Citrate (Fentanyl 2ml Vial) 50 mcg PRN Q5MIN PRN IV MODERATE TO SEVERE PAIN; Start 03/23/19 at 13:00; Stop 03/24/19 at 12:59 Morphine Sulfate (Morphine Sulfate) 1 mg PRN Q10MIN PRN IV SEVERE PAIN; Start 03/23/19 at 13:00; Stop 03/24/19 at 12:59 Ringer's Solution 1,000 ml @ 30 mls/hr Q24H IV Last administered on 03/23/19at 13:45; Start 03/23/19 at 12:57; Stop 03/24/19 at 00:56; Status DC Hydromorphone HCl (Dilaudid) 0.5 mg PRN Q10MIN PRN IV SEV PAIN, Second choice; Start 03/23/19 at 13:00; Stop 03/24/19 at 12:59 Prochlorperazine Edisylate (Compazine) 5 mg PACU PRN PRN IV NAUSEA, MRX1; Start 03/23/19 at 13:00; Stop 03/24/19 at 12:59 Fentanyl (Duragesic 25mcg/ Hr Patch) 1 patch Q3DAYS TD Last administered on 03/23/19at 13:45; Start 03/23/19 at 14:00 Benzocaine (Hurricaine One) 3 spray 1X ONCE MM Last administered on 03/23/19at 14:45; Start 03/23/19 at 13:45; Stop 03/23/19 at 13:50; Status DC Lidocaine HCl (Glydo (Lidocaine) Jelly) 1 gordy 1X ONCE MM ; Start 03/23/19 at 13:45; Stop 03/23/19 at 13:50; Status DC Lidocaine HCl (Viscous Lidocaine) 15 ml 1X ONCE SWSW ; Start 03/23/19 at 13:45; Stop 03/23/19 at 13:50; Status DC Lidocaine HCl (Xylocaine 2% Topical 30gm Tube) 1 gordy 1X ONCE TP Last administered on 03/23/19at 13:45; Start 03/23/19 at 14:00; Stop 03/23/19 at 14:0 1; Status DC Lidocaine HCl (Viscous Lidocaine) 15 ml STK-MED ONCE .ROUTE ; Start 03/23/19 at 13:51; Stop 03/23/19 at 13:52; Status DC Propofol 20 ml @ As Directed STK-MED ONCE IV ; Start 03/23/19 at 14:44; Stop 03/23/19 at 14:45; Status DC Active Scripts Active Reported No Known Medications Prior To Admisstion (Info) Each 1 Each DAILY Vitals/I & O Vital Sign - Last 24 Hours 03/23/19 03/23/19 03/23/19 03/23/19 10:12 11:00 13:45 13:48 Temp 97.9 97.9 Pulse 105 Resp 16 B/P (MAP) 115/69 (84) Pulse Ox 96 O2 Delivery Room Air Room Air Room Air Room Air 03/23/19 03/23/19 03/23/19 03/23/19 15:04 15:13 15:13 15:20 Temp 97.9 97.9 97.9 97.9 97.9 97.9 Pulse 103 103 103 Resp 15 15 15 B/P (MAP) 147/76 131/55 111/53 Pulse Ox 96 96 100 O2 Delivery Room Air Room Air Room Air Nasal Cannula O2 Flow Rate 2 2 2 2 03/23/19 03/23/19 03/23/19 03/23/19 15:35 16:00 16:15 16:30 Temp 97.9 97.9 Pulse 109 108 107 108 Resp 16 B/P (MAP) 116/56 142/71 (94) 135/67 (89) 126/74 (91) Pulse Ox 98 92 O2 Delivery Room Air 5/03/23/19 03/23/19 03/23/19 16:45 16:47 17:00 17:30 Pulse 104 108 107 B/P (MAP) 142/67 (92) 138/71 (93) 148/77 (100) O2 Delivery Room Air 03/23/19 03/23/19 03/23/19 03/23/19 17:58 18:00 19:00 19:57 Temp 99.1 99.1 Pulse 116 117 Resp 18 B/P (MAP) 147/71 (96) 148/73 (98) Pulse Ox 91 O2 Delivery Room Air Room Air Room Air 03/23/19 03/23/19 03/23/19 03/24/19 20:00 20:57 23:00 03:00 Temp 97.7 98.1 97.7 98.1 Pulse 118 109 Resp 18 18 B/P (MAP) 127/82 (97) 140/75 (96) Pulse Ox 91 92 O2 Delivery Room Air Room Air Room Air Room Air 03/24/19 03/24/19 03/24/19 03/24/19 03:27 03:57 06:44 07:00 Temp 98.1 98.1 Pulse 109 B/P (MAP) 140/75 (96) Pulse Ox 92 O2 Delivery Room Air Room Air Room Air Room Air O2 Flow Rate 2.0 2.0 03/24/19 07:00 Temp 98.0 98.0 Pulse 100 Resp 18 B/P (MAP) 130/70 (90) Pulse Ox 92 O2 Delivery Room Air Intake and Output 03/23/19 03/23/19 03/24/19 14:59 22:59 06:59 Intake Total 750 ml 500 ml Balance 750 ml 500 ml BRIAN SALAS MD March 24, 2019 08:26
--- NOTE | 2019-03-24 09:19 | NUR ---
SW following for discharge planning. Discussed with RN, pt from home with daughter. Pt back pain very significant. SW awaiting PT/OT recommendations for discharge planning.
--- NOTE | 2019-03-24 10:58 | PDOC ---
CARDIO Progress Notes Date and Time Date of Service 03/24/19 Time of Evaluation 1050 Subjective Subjective: No Chest Pain, No shortness of breath, No Palpitations Vitals Vitals Vital Signs Date Time Temp Pulse Resp B/P (MAP) Pulse Ox O2 Delivery O2 Flow Rate FiO2 03/24/19 10:11 Room Air 03/24/19 07:00 98.0 100 18 130/70 (90) 92 98.0 03/24/19 07:00 2.0 Weight Weight [ ] Input and Output Intake and Output Intake and Output 03/24/19 07:00 Intake Total 1250 ml Balance 1250 ml Intake Oral 1000 ml IV Total 250 ml # Voids 1 Laboratory Labs Laboratory Tests Test 03/23/19 19:35 03/24/19 06:34 Erythrocyte Sedimentation Rate 70 (0-25) C-Reactive Protein, Quantitative 162.1 mg/L (0-3.3) Procalcitonin 0.21 ng/mL (0.00-0.10) Physical Exam HEENT: Neck Supple W Full Motion Chest: Symmetric LUNGS: Clear to Auscultation Heart: S1S2, no gallops, no murmurs, murmurs (3/6 systolic murmur ) Abdomen: Soft N/T Extremities: Other (trace bilateral LE edema ) Neurology: alert, oriented, follow commands Assessment Assessment 1. Severe mitral regurgitant jet consistent with with flail posterior leaflet. 2. Hx of HTN: controlled, no meds 3. Tobaccoism; reinforced cessation Recommendations Supportive care Will monitor on an outpatient basis Follow up with Dr. Chase in 3 months as scheduled. ABDULAZIZ MICHAEL APRN March 24, 2019 10:58
--- NOTE | 2019-03-24 11:17 | PDOC ---
Provider Note Provider Note IR NOTE Consulted for compression fracture at T12. This is chronic based on MRI. Vertebral augmentation not indicated. Changes at T10-T11 which could be degenerative or infectious based on imaging. Possible disc biopsy. RISA FARNSWORTH MD March 24, 2019 11:17
--- NOTE | 2019-03-24 11:59 | PDOC ---
Infectious Disease Note Vital Sign Vital Signs Vital Signs Date Time Temp Pulse Resp B/P (MAP) Pulse Ox O2 Delivery O2 Flow Rate FiO2 03/24/19 10:45 Room Air 03/24/19 07:00 98.0 100 18 130/70 (90) 92 98.0 03/24/19 07:00 2.0 Labs Lab Laboratory Tests Test 03/23/19 19:35 03/24/19 06:34 Erythrocyte Sedimentation Rate 70 (0-25) C-Reactive Protein, Quantitative 162.1 mg/L (0-3.3) 25-Hydroxy Vitamin D Total 34.7 ng/mL (30-100) Procalcitonin 0.21 ng/mL (0.00-0.10) Micro Impression: 1. There is old T12 compression fracture, osseous retropulsion superiorly with mild indentation upon the ventral thecal sac. 2. There is T10-T11 endplate edema greater on the left, also some mild increased signal in the T10-T11 intervertebral disc space greater on the left. While findings could be related to degenerative disc disease and reactive marrow edema, sequela of early infectious spondylitis is not excludable by imaging. Short-term follow-up imaging such as in 10 days could be beneficial if clinical suspicion for infection. Objective Assessment murmur MV regurg with flail post leaflet - no peripheral stigmata and no infections or abx for years Back pain T 10 -11 endplate edema Plan Plan of Care Holding abx Added Procalcitonin yesterday Disc aspiration today for cults/AFB/fungal and routine Thank you # [id number] SALVATORE WOODS MD March 24, 2019 11:58
[2019-03-24 12:04] LABS: PROTHROMBIN TIME PATIENT 13.2 SEC (11.7-14.0)
[2019-03-24] MEDS ORDERED: LIDOCAINE WITH 8.4% SOD BICARB 3 ML DISP.SYRIN. ONE (13:21)
[2019-03-24] MEDS ORDERED: MIDAZOLAM HCL/PF 2 MG/2 ML VIAL. ONE (13:23)
[2019-03-24] MEDS ORDERED: fentaNYL PF VIAL 100 MCG/2 ML VIAL ONE (13:23)
[2019-03-24] MEDS ORDERED: MIDAZOLAM HCL/PF 2 MG/2 ML VIAL. IV ONE (13:30)
[2019-03-24] MEDS ORDERED: LIDOCAINE WITH 8.4% SOD BICARB 3 ML DISP.SYRIN. IJ ONE (13:30)
[2019-03-24] MEDS ORDERED: fentaNYL PF VIAL 100 MCG/2 ML VIAL IV ONE (13:30)
--- NOTE | 2019-03-24 14:18 | PDOC ---
MODERATE SEDATION ASSESSMENT RISKS/ALTERNATIVES Risks/Alternatives Risks and alternatives of this type of sedation and procedure discussed with: RISK/ALTERNATIVES: Patient H & P ON CHART H & P H & P on chart and reviewed for co-morbid conditions and appropriate labs. H&P ON CHART: Yes STATUS PREG STATUS ASSESSED: Yes MEDS/ALLERGIES REVIEWED Meds/Allergies Reviewed Medications and Allergies including time and route of recently administered narcotics and sedatives. MEDS/ALLERGIES REVIEWED: Yes ASA RATING ASA RATING: II AIRWAY ASSESSMENT Airway Assessment Airway patency, oral function limitations, presence of caps, crowns, dentures, partials, and ability to extend neck assessed. AIRWAY ASSESSMENT: Yes MALLAMPATI SCORE MALLAMPATI SCORE: II PRE-SEDATION ASSESSMENT PRE-SEDATION ASSESSMENT: Yes RISA FARNSWORTH MD March 24, 2019 14:18
--- NOTE | 2019-03-24 15:37 | PDOC ---
PROGRESS NOTES Subjective Subjective She admits continued back pain. Objective Objective Vital Signs Date Time Temp Pulse Resp B/P (MAP) Pulse Ox O2 Delivery O2 Flow Rate FiO2 03/24/19 14:45 98.0 100 20 99/56 (70) 92 Room Air 98.0 03/24/19 14:21 2.0 Intake and Output 03/24/19 06:59 Intake Total 1250 ml Balance 1250 ml Intake Oral 1000 ml IV Total 250 ml # Voids 1 Physical Exam Physical Exam She is supine in bed with back brace in place. She continues with pain with mobility. Plan Plan of Care Agree with plans for diagnosis of spondylitis. Comment Review of Relevant I have reviewed the following items tolu (where applicable) has been applied. Labs Laboratory Tests Test 03/23/19 05:00 03/23/19 19:35 03/24/19 06:34 03/24/19 11:45 White Blood Count 7.3 x10^3/uL (4.0-11.0) Red Blood Count 2.93 x10^6/uL (3.50-5.70) Hemoglobin 8.1 g/dL (12.0-15.5) Hematocrit 24.7 % (36.0-47.0) Mean Corpuscular Volume 84 fL (79-100) Mean Corpuscular Hemoglobin 28 pg (25-35) Mean Corpuscular Hemoglobin Concent 33 g/dL (31-37) Red Cell Distribution Width 15.6 % (11.5-14.5) Platelet Count 261 x10^3/uL (140-400) Neutrophils (%) (Auto) 80 % (31-73) Lymphocytes (%) (Auto) 8 % (24-48) Monocytes (%) (Auto) 10 % (0-9) Eosinophils (%) (Auto) 1 % (0-3) Basophils (%) (Auto) 0 % (0-3) Neutrophils # (Auto) 5.8 x10^3uL (1.8-7.7) Lymphocytes # (Auto) 0.6 x10^3/uL (1.0-4.8) Monocytes # (Auto) 0.8 x10^3/uL (0.0-1.1) Eosinophils # (Auto) 0.1 x10^3/uL (0.0-0.7) Basophils # (Auto) 0.0 x10^3/uL (0.0-0.2) Absolute Reticulocyte Count 0.083 x10^6/uL (0.020-0.120) Percent Reticulocyte Count 2.8 % (0.5-2.3) Immature Reticulocyte Fraction 0.52 (0.20-0.60) Sodium Level 133 mmol/L (136-145) Potassium Level 4.2 mmol/L (3.5-5.1) Chloride Level 98 mmol/L (98-107) Carbon Dioxide Level 27 mmol/L (21-32) Anion Gap 8 (6-14) Blood Urea Nitrogen 5 mg/dL (7-20) Creatinine 0.6 mg/dL (0.6-1.0) Estimated GFR (Cockcroft-Gault) 98.5 BUN/Creatinine Ratio 8 (6-20) Glucose Level 111 mg/dL (70-99) Calcium Level 8.4 mg/dL (8.5-10.1) Iron Level 23 ug/dL (50-170) Total Iron Binding Capacity 177 ug/dL (250-450) Iron Saturation 13 % (15-34) Total Bilirubin 0.4 mg/dL (0.2-1.0) Aspartate Amino Transf (AST/SGOT) 53 U/L (15-37) Alanine Aminotransferase (ALT/SGPT) 78 U/L (14-59) Alkaline Phosphatase 196 U/L (46-116) Lactate Dehydrogenase 280 U/L (81-234) Total Protein 5.6 g/dL (6.4-8.2) Albumin 2.5 g/dL (3.4-5.0) Albumin/Globulin Ratio 0.8 (1.0-1.7) Triglycerides Level 117 mg/dL (0-150) Cholesterol Level 135 mg/dL (0-200) LDL Cholesterol, Calculated 92 mg/dL (0-100) VLDL Cholesterol, Calculated 23 mg/dL (0-40) Non-HDL Cholesterol Calculated 115 mg/dL (0-129) HDL Cholesterol 20 mg/dL (40-60) Cholesterol/HDL Ratio 6.8 Vitamin B12 Level 1077 pg/mL (247-911) Erythrocyte Sedimentation Rate 70 (0-25) C-Reactive Protein, Quantitative 162.1 mg/L (0-3.3) 25-Hydroxy Vitamin D Total 34.7 ng/mL (30-100) Procalcitonin 0.21 ng/mL (0.00-0.10) Prothrombin Time 13.2 SEC (11.7-14.0) Prothromb Time International Ratio 1.0 (0.8-1.1) Activated Partial Thromboplast Time 33 SEC (24-38) Laboratory Tests Test 03/23/19 19:35 03/24/19 06:34 03/24/19 11:45 Erythrocyte Sedimentation Rate 70 (0-25) C-Reactive Protein, Quantitative 162.1 mg/L (0-3.3) 25-Hydroxy Vitamin D Total 34.7 ng/mL (30-100) Procalcitonin 0.21 ng/mL (0.00-0.10) Prothrombin Time 13.2 SEC (11.7-14.0) Prothromb Time International Ratio 1.0 (0.8-1.1) Activated Partial Thromboplast Time 33 SEC (24-38) Medications Current Medications Oxycodone/ Acetaminophen (Percocet 5/325) 1 tab PRN Q4HRS PRN PO PAIN Last administered on 03/24/19 06:44; Start 03/22/19 at 15:30 Cyclobenzaprine HCl (Flexeril) 10 mg PRN Q6HRS PRN PO MUSCLE SPASMS Last administered on 03/24/19 07:24; Start 03/22/19 at 15:30 Morphine Sulfate (Morphine Sulfate) 4 mg PRN Q2HR PRN IV PAIN, MOD TO SEVERE Last administered on 03/24/19 10:11; Start 03/22/19 at 15:30 Ketorolac Tromethamine (Toradol 15mg Vial) 15 mg PRN Q6HRS PRN IV MILD PAIN; Start 03/22/19 at 15:30; Stop 03/27/19 at 15:29 Lidocaine (Lidoderm) 1 patch DAILY TD Last administered on 03/24/19 07:24; Start 03/22/19 at 16:00 Miscellaneous (Lidoderm Patch Removal) 1 ea QHS MC Last administered on 03/23/19 21:00; Start 03/22/19 at 21:00 Trazodone HCl (Desyrel) 50 mg QHS PO Last administered on 03/23/19 21:38; Start 03/22/19 at 21:00 Ondansetron HCl (Zofran) 4 mg PRN Q6HRS PRN IV NAUSEA/VOMITING; Start 03/23/19 at 13:00; Stop 03/24/19 at 12:59; Status DC Fentanyl Citrate (Fentanyl 2ml Vial) 25 mcg PRN Q5MIN PRN IV MILD PAIN; Start 03/23/19 at 13:00; Stop 03/24/19 at 12:59; Status DC Fentanyl Citrate (Fentanyl 2ml Vial) 50 mcg PRN Q5MIN PRN IV MODERATE TO SEVERE PAIN; Start 03/23/19 at 13:00; Stop 03/24/19 at 12:59; Status DC Morphine Sulfate (Morphine Sulfate) 1 mg PRN Q10MIN PRN IV SEVERE PAIN; Start 03/23/19 at 13:00; Stop 03/24/19 at 12:59; Status DC Ringer's Solution 1,000 ml @ 30 mls/hr Q24H IV Last administered on 03/23/19at 13:45; Start 03/23/19 at 12:57; Stop 03/24/19 at 00:56; Status DC Hydromorphone HCl (Dilaudid) 0.5 mg PRN Q10MIN PRN IV SEV PAIN, Second choice; Start 03/23/19 at 13:00; Stop 03/24/19 at 12:59; Status DC Prochlorperazine Edisylate (Compazine) 5 mg PACU PRN PRN IV NAUSEA, MRX1; Start 03/23/19 at 13:00; Stop 03/24/19 at 12:59; Status DC Fentanyl (Duragesic 25mcg/ Hr Patch) 1 patch Q3DAYS TD Last administered on 03/23/19at 13:45; Start 03/23/19 at 14:00 Benzocaine (Hurricaine One) 3 spray 1X ONCE MM Last administered on 03/23/19at 14:45; Start 03/23/19 at 13:45; Stop 03/23/19 at 13:50; Status DC Lidocaine HCl (Glydo (Lidocaine) Jelly) 1 gordy 1X ONCE MM ; Start 03/23/19 at 13:45; Stop 03/23/19 at 13:50; Status DC Lidocaine HCl (Viscous Lidocaine) 15 ml 1X ONCE SWSW ; Start 03/23/19 at 13:45; Stop 03/23/19 at 13:50; Status DC Lidocaine HCl (Xylocaine 2% Topical 30gm Tube) 1 gordy 1X ONCE TP Last administered on 03/23/19at 13:45; Start 03/23/19 at 14:00; Stop 03/23/19 at 1 4:01; Status DC Lidocaine HCl (Viscous Lidocaine) 15 ml STK-MED ONCE .ROUTE ; Start 03/23/19 at 13:51; Stop 03/23/19 at 13:52; Status DC Propofol 20 ml @ As Directed STK-MED ONCE IV ; Start 03/23/19 at 14:44; Stop 03/23/19 at 14:45; Status DC Lidocaine/Sodium Bicarbonate (Buffered Lidocaine 1%) 3 ml STK-MED ONCE .ROUTE ; Start 03/24/19 at 13:21; Stop 03/24/19 at 13:22; Status DC Midazolam HCl (Versed) 2 mg STK-MED ONCE .ROUTE ; Start 03/24/19 at 13:23; Stop 03/24/19 at 13:24; Status DC Fentanyl Citrate (Fentanyl 2ml Vial) 100 mcg STK-MED ONCE .ROUTE ; Start 03/24/19 at 13:23; Stop 03/24/19 at 13:24; Status DC Lidocaine/Sodium Bicarbonate (Buffered Lidocaine 1%) 3 ml 1X ONCE IJ Last administered on 03/24/19at 14:20; Start 03/24/19 at 13:30; Stop 03/24/19 at 13:35; Status DC Midazolam HCl (Versed) 2 mg 1X ONCE IV Last administered on 03/24/19at 14:20; Start 03/24/19 at 13:30; Stop 03/24/19 at 13:35; Status DC Fentanyl Citrate (Fentanyl 2ml Vial) 100 mcg 1X ONCE IV Last administered on 03/24/19at 14:19; Start 03/24/19 at 13:30; Stop 03/24/19 at 13:35; Status DC Metoprolol Tartrate (Lopressor) 25 mg BID PO ; Start 03/24/19 at 21:00 Active Scripts Active Reported No Known Medications Prior To Admisstion (Info) Each 1 Each DAILY Vitals/I & O Vital Sign - Last 24 Hours 03/23/19 03/23/19 03/23/1919 16:00 16:15 16:30 16:45 Pulse 108 107 108 104 B/P (MAP) 142/71 (94) 135/67 (89) 126/74 (91) 142/67 (92) Pulse Ox 92 03/23/19 03/23/19 03/23/19 03/23/19 16:47 17:00 17:30 17:58 Pulse 108 107 B/P (MAP) 138/71 (93) 148/77 (100) O2 Delivery Room Air Room Air 03/23/19 03/23/19 03/23/19 03/23/19 18:00 19:00 19:57 20:00 Temp 99.1 99.1 Pulse 116 117 Resp 18 B/P (MAP) 147/71 (96) 148/73 (98) Pulse Ox 91 O2 Delivery Room Air Room Air Room Air 03/23/19 03/24/19 03/24/19 03/24/19 23:00 03:00 03:27 03:57 Temp 97.7 98.1 97.7 98.1 Pulse 118 109 Resp 18 18 B/P (MAP) 127/82 (97) 140/75 (96) Pulse Ox 91 92 O2 Delivery Room Air Room Air Room Air O2 Flow Rate 2.0 03/24/19 03/24/19 03/24/19 03/24/19 06:44 07:00 07:00 07:45 Temp 98.1 98.0 98.1 98.0 Pulse 109 100 Resp 18 B/P (MAP) 140/75 (96) 130/70 (90) Pulse Ox 92 92 O2 Delivery Room Air Room Air Room Air Room Air O2 Flow Rate 2.0 03/24/19 03/24/19 03/24/19 03/24/19 08:00 10:11 10:45 11:00 Temp 98.0 98.0 Pulse 107 Resp 18 B/P (MAP) 121/79 (93) Pulse Ox 91 O2 Delivery Room Air Room Air Room Air Room Air 03/24/19 03/24/19 03/24/19 14:19 14:21 14:45 Temp 98.0 98.0 Pulse 97 100 Resp 16 16 20 B/P (MAP) 99/56 (70) Pulse Ox 98 98 92 O2 Delivery Nasal Cannula Nasal Cannula Room Air O2 Flow Rate 2.0 2.0 Intake and Output 03/23/19 03/23/19 03/24/19 14:59 22:59 06:59 Intake Total 750 ml 500 ml Balance 750 ml 500 ml EVIE BHATTI MD March 24, 2019 15:37
[2019-03-24] MEDS: KETOROLAC 15 MG/ML VIAL. IV PRN (16:08)
[2019-03-24] MEDS: PATCH REMOVAL. MC SCH (21:00)
[2019-03-24] MEDS: METOPROLOL TART IMMED RELEASE 25 MG TABLET. PO SCH (21:20)
[2019-03-24] MEDS: traZODone 50 MG TABLET. PO SCH (21:21)
[2019-03-25] VITALS (7 sets, daily range): BP systolic 84–131; BP diastolic 51–75
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
[2019-03-25] MEDS: CYCLOBENZAPRINE 10 MG TABLET. PO PRN ×3 (06:13→19:18)
[2019-03-25] MEDS: oxyCODONE/APAP 5/325 1 TAB TABLET PO PRN ×4 (06:14→22:18)
--- NOTE | 2019-03-25 08:56 | PDOC ---
PROGRESS NOTES Chief Complaint Chief Complaint Acute back pain, plain film showed possible compression fx at T12, MRI shows T10-11 lucency in disc, physiatry consulted - s/p IR biopsy for discitis, sed rate and crp highly elevated, consult ID Heart murmur - mitral valve flair leaflet with regurgitation, consulted cardiology Anemia, hgb 8.5, iron level low, TIBC low as chronic disease, b12 WNL, retic WNL, possibly hemolyzing from flail valve or possibly with infection of spine UTI - 100K GNR from [place] culture, will start empiric rocephin now that she has had spinal biopsies History of Present Illness History of Present Illness She had been admitted to [place] 1.5 days prior for acute back pain, she was mowing her yard, did well, then went to bed, and the next day could not get out of bed. Thoracic MRI shows T10-11 disc inflammatory process and endplate as well. 03/23: She was noted with anemia, echo reviewed showing mitral regurgitation, MRI - T10-11 discitis? and ADALBERTO mitral regurgitation with flail leaflet?. ESR and CRP elevated 03/24: To IR for disc biopsy and culture today. ID consulted. Acute pain to lower spinal area, with pain that is worse with movement, and has crampy tendency. Urine from [place] shows 100,000cfu GNR. Questions answered to patient and daughter. Vitals Vitals Vital Signs Date Time Temp Pulse Resp B/P (MAP) Pulse Ox O2 Delivery O2 Flow Rate FiO2 03/25/19 07:14 Room Air 03/25/19 07:00 97.8 104 16 93/56 (68) 98 97.8 03/24/19 14:21 2.0 Physical Exam General: Alert, Oriented X3, Cooperative, No acute distress Heart: Regular rate (SR) Abdomen: Soft, No tenderness Extremities: No cyanosis, Other (1+bilateral LE pitting edema) Skin: No breakdown, No significant lesion Labs LABS Laboratory Tests Test 03/24/19 11:45 Prothrombin Time 13.2 SEC (11.7-14.0) Prothromb Time International Ratio 1.0 (0.8-1.1) Activated Partial Thromboplast Time 33 SEC (24-38) Comment Review of Relevant I have reviewed the following items tolu (where applicable) has been applied. Labs Laboratory Tests Test 03/23/19 19:35 03/24/19 06:34 03/24/19 11:45 Erythrocyte Sedimentation Rate 70 (0-25) C-Reactive Protein, Quantitative 162.1 mg/L (0-3.3) 25-Hydroxy Vitamin D Total 34.7 ng/mL (30-100) Procalcitonin 0.21 ng/mL (0.00-0.10) Prothrombin Time 13.2 SEC (11.7-14.0) Prothromb Time International Ratio 1.0 (0.8-1.1) Activated Partial Thromboplast Time 33 SEC (24-38) Laboratory Tests Test 03/24/19 11:45 Prothrombin Time 13.2 SEC (11.7-14.0) Prothromb Time International Ratio 1.0 (0.8-1.1) Activated Partial Thromboplast Time 33 SEC (24-38) Medications Current Medications Oxycodone/ Acetaminophen (Percocet 5/325) 1 tab PRN Q4HRS PRN PO PAIN Last administered on 03/25/19 06:14; Start 03/22/19 at 15:30 Cyclobenzaprine HCl (Flexeril) 10 mg PRN Q6HRS PRN PO MUSCLE SPASMS Last administered on 03/25/19 06:13; Start 03/22/19 at 15:30 Morphine Sulfate (Morphine Sulfate) 4 mg PRN Q2HR PRN IV PAIN, MOD TO SEVERE Last administered on 03/24/19 10:11; Start 03/22/19 at 15:30 Ketorolac Tromethamine (Toradol 15mg Vial) 15 mg PRN Q6HRS PRN IV MILD PAIN Last administered on 03/24/19 16:08; Start 03/22/19 at 15:30; Stop 03/27/19 at 15:29 Lidocaine (Lidoderm) 1 patch DAILY TD Last administered on 03/24/19 07:24; Start 03/22/19 at 16:00 Miscellaneous (Lidoderm Patch Removal) 1 ea QHS MC Last administered on 03/24/19 21:00; Start 03/22/19 at 21:00 Trazodone HCl (Desyrel) 50 mg QHS PO Last administered on 03/24/19 21:21; Start 03/22/19 at 21:00 Ondansetron HCl (Zofran) 4 mg PRN Q6HRS PRN IV NAUSEA/VOMITING; Start 03/23/19 at 13:00; Stop 03/24/19 at 12:59; Status DC Fentanyl Citrate (Fentanyl 2ml Vial) 25 mcg PRN Q5MIN PRN IV MILD PAIN; Start 03/23/19 at 13:00; Stop 03/24/19 at 12:59; Status DC Fentanyl Citrate (Fentanyl 2ml Vial) 50 mcg PRN Q5MIN PRN IV MODERATE TO SEVERE PAIN; Start 03/23/19 at 13:00; Stop 03/24/19 at 12:59; Status DC Morphine Sulfate (Morphine Sulfate) 1 mg PRN Q10MIN PRN IV SEVERE PAIN; Start 03/23/19 at 13:00; Stop 03/24/19 at 12:59; Status DC Ringer's Solution 1,000 ml @ 30 mls/hr Q24H IV Last administered on 03/23/19at 13:45; Start 03/23/19 at 12:57; Stop 03/24/19 at 00:56; Status DC Hydromorphone HCl (Dilaudid) 0.5 mg PRN Q10MIN PRN IV SEV PAIN, Second choice; Start 03/23/19 at 13:00; Stop 03/24/19 at 12:59; Status DC Prochlorperazine Edisylate (Compazine) 5 mg PACU PRN PRN IV NAUSEA, MRX1; Start 03/23/19 at 13:00; Stop 03/24/19 at 12:59; Status DC Fentanyl (Duragesic 25mcg/ Hr Patch) 1 patch Q3DAYS TD Last administered on 03/23/19at 13:45; Start 03/23/19 at 14:00 Benzocaine (Hurricaine One) 3 spray 1X ONCE MM Last administered on 03/23/19at 14:45; Start 03/23/19 at 13:45; Stop 03/23/19 at 13:50; Status DC Lidocaine HCl (Glydo (Lidocaine) Jelly) 1 gordy 1X ONCE MM ; Start 03/23/19 at 13:45; Stop 03/23/19 at 13:50; Status DC Lidocaine HCl (Viscous Lidocaine) 15 ml 1X ONCE SWSW ; Start 03/23/19 at 13:45; Stop 03/23/19 at 13:50; Status DC Lidocaine HCl (Xylocaine 2% Topical 30gm Tube) 1 gordy 1X ONCE TP Last administered on 03/23/19at 13:45; Start 03/23/19 at 14:00; Stop 03/23/19 at 14:01; Status DC Lidocaine HCl (Viscous Lidocaine) 15 ml STK-MED ONCE .ROUTE ; Start 03/23/19 at 13:51; Stop 03/23/19 at 13:52; Status DC Propofol 20 ml @ As Directed STK-MED ONCE IV ; Start 03/23/19 at 14:44; Stop 03/23/19 at 14:45; Status DC Lidocaine/Sodium Bicarbonate (Buffered Lidocaine 1%) 3 ml STK-MED ONCE .ROUTE ; Start 03/24/19 at 13:21; Stop 03/24/19 at 13:22; Status DC Midazolam HCl (Versed) 2 mg STK-MED ONCE .ROUTE ; Start 03/24/19 at 13:23; Stop 03/24/19 at 13:24; Status DC Fentanyl Citrate (Fentanyl 2ml Vial) 100 mcg STK-MED ONCE .ROUTE ; Start 03/24/19 at 13:23; Stop 03/24/19 at 13:24; Status DC Lidocaine/Sodium Bicarbonate (Buffered Lidocaine 1%) 3 ml 1X ONCE IJ Last administered on 03/24/19at 14:20; Start 03/24/19 at 13:30; Stop 03/24/19 at 13:35; Status DC Midazolam HCl (Versed) 2 mg 1X ONCE IV Last administered on 03/24/19at 14:20; Start 03/24/19 at 13:30; Stop 03/24/19 at 13:35; Status DC Fentanyl Citrate (Fentanyl 2ml Vial) 100 mcg 1X ONCE IV Last administered on 03/24/19at 14:19; Start 03/24/19 at 13:30; Stop 03/24/19 at 13:35; Status DC Metoprolol Tartrate (Lopressor) 25 mg BID PO Last administered on 03/24/19at 21:20; Start 03/24/19 at 21:00 Active Scripts Active Reported No Known Medications Prior To Admisstion (Info) Each 1 Each DAILY Vitals/I & O Vital Sign - Last 24 Hours 5/1503/24/19 03/24/19 03/24/19 10:11 10:45 11:00 14:19 Temp 98.0 98.0 Pulse 107 Resp 18 16 B/P (MAP) 121/79 (93) Pulse Ox 91 98 O2 Delivery Room Air Room Air Room Air Nasal Cannula O2 Flow Rate 2.0 03/24/19 03/24/19 03/24/19 03/24/19 14:21 14:45 15:00 15:15 Temp 98.0 98.0 Pulse 97 100 98 93 Resp 16 20 B/P (MAP) 99/56 (70) 101/39 (59) 97/38 (57) Pulse Ox 98 92 92 96 O2 Delivery Nasal Cannula Room Air Room Air Room Air O2 Flow Rate 2.0 03/24/19 03/24/19 03/24/19 03/24/19 15:30 16:00 17:00 17:19 Pulse 96 103 101 Resp 18 B/P (MAP) 101/37 (58) 130/66 (87) 133/66 (88) Pulse Ox 92 95 96 O2 Delivery Room Air Room Air Room Air Room Air 03/24/19 03/24/19 03/24/19 03/24/19 19:00 20:00 21:20 23:00 Temp 98.4 98.5 98.4 98.5 Pulse 99 99 75 Resp 18 18 B/P (MAP) 121/74 (90) 121/74 104/61 (75) Pulse Ox 93 90 O2 Delivery Room Air Room Air Room Air 03/24/19 03/25/19 03/25/19 03/25/19 23:50 03:00 06:14 07:00 Temp 99.0 97.8 99.0 97.8 Pulse 103 104 Resp 18 16 B/P (MAP) 121/71 (88) 93/56 (68) Pulse Ox 92 98 O2 Delivery Room Air Room Air Room Air Room Air 03/25/19 07:14 O2 Delivery Room Air BRIAN SALAS MD March 25, 2019 08:56
[2019-03-25] MEDS: KETOROLAC 15 MG/ML VIAL. IV PRN ×3 (09:30→22:19)
[2019-03-25] MEDS: METOPROLOL TART IMMED RELEASE 25 MG TABLET. PO SCH ×2 (09:31→22:55)
[2019-03-25] MEDS: cefTRIAXone IV Push 1 GM VIAL. IVP SCH (09:33)
[2019-03-25] MEDS: LIDOCAINE (700MG/PATCH) PATCH. TD SCH (09:35)
[2019-03-25 09:56] LABS: BASO % 0 % (0-3); EOS # 0.1 x10^3/uL (0.0-0.7); EOS % 1 % (0-3); HEMATOCRIT 28.8 % (36.0-47.0); HEMOGLOBIN 9.3 g/dL (12.0-15.5); LYMPH # 0.4 x10^3/uL (1.0-4.8); LYMPH % 4 % (24-48); MEAN CORPUSCULAR HEMOGLOBIN 27 pg (25-35); MEAN CORPUSCULAR HGB CONC 32 g/dL (31-37); MEAN CORPUSCULAR VOLUME 85 fL (79-100); MONO # 0.7 x10^3/uL (0.0-1.1); MONO % 7 % (0-9); NEUT # 8.6 x10^3uL (1.8-7.7); NEUT % 87 % (31-73); PLATELET COUNT 291 x10^3/uL (140-400); RED CELL DISTRIBUTION WIDTH 15.5 % (11.5-14.5); WHITE BLOOD COUNT 9.8 x10^3/uL (4.0-11.0)
--- NOTE | 2019-03-25 10:20 | PDOC ---
Infectious Disease Note Vital Sign Vital Signs Vital Signs Date Time Temp Pulse Resp B/P (MAP) Pulse Ox O2 Delivery O2 Flow Rate FiO2 03/25/19 09:36 98 Room Air 2.0 03/25/19 09:31 104 93/56 03/25/19 07:00 97.8 16 97.8 Physical Exam PHYSICAL EXAM CONSTITUTIONAL: She is cooperative. She is in no acute distress. She is sitting on the side of bed. HEENT: Pupils equal and reactive. She has normal conjunctivae. Oral cavity, pharynx is clear. No signs of any petechial hemorrhages. NECK: Supple. No JVD. LUNGS: Clear to auscultation. HEART: S1 and S2 with a 2/6 murmur. ABDOMEN: Soft, nontender and nondistended with positive bowel sounds. EXTREMITIES: Without clubbing, cyanosis or gross edema. She has no splinter hemorrhages in her fingers. SKIN: Warm to touch without signs of rash. NEUROLOGICAL: She is nonfocal. PSYCHIATRIC: Affect is appropriate and pleasant. Labs Lab Laboratory Tests Test 03/24/19 11:45 03/25/19 09:25 Prothrombin Time 13.2 SEC (11.7-14.0) Prothromb Time International Ratio 1.0 (0.8-1.1) Activated Partial Thromboplast Time 33 SEC (24-38) White Blood Count 9.8 x10^3/uL (4.0-11.0) Red Blood Count 3.40 x10^6/uL (3.50-5.40) Hemoglobin 9.3 g/dL (12.0-15.5) Hematocrit 28.8 % (36.0-47.0) Mean Corpuscular Volume 85 fL (79-100) Mean Corpuscular Hemoglobin 27 pg (25-35) Mean Corpuscular Hemoglobin Concent 32 g/dL (31-37) Red Cell Distribution Width 15.5 % (11.5-14.5) Platelet Count 291 x10^3/uL (140-400) Neutrophils (%) (Auto) 87 % (31-73) Lymphocytes (%) (Auto) 4 % (24-48) Monocytes (%) (Auto) 7 % (0-9) Eosinophils (%) (Auto) 1 % (0-3) Basophils (%) (Auto) 0 % (0-3) Neutrophils # (Auto) 8.6 x10^3uL (1.8-7.7) Lymphocytes # (Auto) 0.4 x10^3/uL (1.0-4.8) Monocytes # (Auto) 0.7 x10^3/uL (0.0-1.1) Eosinophils # (Auto) 0.1 x10^3/uL (0.0-0.7) Basophils # (Auto) 0.0 x10^3/uL (0.0-0.2) Micro Impression: 1. There is old T12 compression fracture, osseous retropulsion superiorly with mild indentation upon the ventral thecal sac. 2. There is T10-T11 endplate edema greater on the left, also some mild increased signal in the T10-T11 intervertebral disc space greater on the left. While findings could be related to degenerative disc disease and reactive marrow edema, sequela of early infectious spondylitis is not excludable by imaging. Short-term follow-up imaging such as in 10 days could be beneficial if clinical suspicion for infection. Objective Assessment murmur MV regurg with flail post leaflet - no peripheral stigmata and no infections or abx for years Back pain T 10 -11 endplate edema s/p Aspiration 03/24 - cults pending Plan Plan of Care F/u disc aspiration cults/AFB/fungal and routine SALVATORE WOODS MD March 25, 2019 10:20
[2019-03-25 10:27] LABS: ALBUMIN 2.7 g/dL (3.4-5.0); ALBUMIN/GLOBULIN RATIO 0.8 (1.0-1.7); CREATININE 0.8 mg/dL (0.6-1.0); GFR 70.7; POTASSIUM 4.8 mmol/L (3.5-5.1); TOTAL BILIRUBIN 0.5 mg/dL (0.2-1.0); TOTAL PROTEIN 6.2 g/dL (6.4-8.2)
[2019-03-25 10:31] LABS: % BANDS 5 % (0-9); % EOS 1 % (0-5); % LYMPHS 2 % (24-48); % MONOS 5 % (0-10); % SEGS 87 % (35-66); PLT ESTIMATE ADEQUATE (ADEQUATE)
--- NOTE | 2019-03-25 11:40 | RAD ---
Fluoroscopically guided T10-T11 disc biopsy 03/25/2019 Indication:Possible discitis Fluoro time: 3.9 MINUTES dose area product: 1604.2uGym2 Moderate sedation: The patient was appropriately monitored by a qualified independent observer throughout the course of the moderate sedation. [id number] sedation time:30 Consent: The risks and benefits of the procedure were discussed with the patient. Informed consent was obtained. The patient was brought to the fluoroscopy suite and placed in the prone position. A timeout procedure was performed. Preprocedural antibiotics were administered. Procedure: The overlying skin was prepped and draped in the usual sterile fashion. All elements of maximal sterile barrier technique including the use of a cap, mask, sterile gown, sterile gloves, large sterile sheet, appropriate hand hygiene, and 2% chlorhexidine for cutaneous antisepsis (or acceptable alternative antiseptic per current guidelines) were followed for this procedure. Using a left lateral leg and direct fluoroscopic guidance, a trocar needle was advanced to the posterior lateral disc space. Multiple core biopsy samples were obtained and sent for culture per ordering physician request. The needle was removed and manual pressure held. . Sterile dressing was applied. Patient tolerated the procedure well, without apparent complication. Impression: Fluoroscopically guided T10-T11 disc biopsy.
--- NOTE | 2019-03-25 11:50 | PDOC ---
Infectious Disease Note Subjective Subjective Doing ok. Pain controlled but constipation Feels a little confused today No N/V/D/SOA/Rash ROS ROS O/w neg Vital Sign Vital Signs Vital Signs Date Time Temp Pulse Resp B/P (MAP) Pulse Ox O2 Delivery O2 Flow Rate FiO2 03/25/19 10:45 98 Room Air 2.0 03/25/19 09:31 104 93/56 03/25/19 07:00 97.8 16 97.8 Physical Exam PHYSICAL EXAM CONSTITUTIONAL: She is cooperative. She is in no acute distress. She is sitting in a chair of bed. HEENT: Pupils equal and reactive. She has normal conjunctivae. Oral cavity, pharynx is clear. No signs of any petechial hemorrhages. NECK: Supple. No JVD. LUNGS: Clear to auscultation. HEART: S1 and S2 with a 2/6 murmur. ABDOMEN: Soft, nontender and nondistended with positive bowel sounds. Mild distension EXTREMITIES: Without clubbing, cyanosis or gross edema. She has no splinter hemorrhages in her fingers. SKIN: Warm to touch without signs of rash. NEUROLOGICAL: She is nonfocal. PSYCHIATRIC: Affect is appropriate and pleasant. Labs Lab Laboratory Tests Test 03/24/19 11:45 03/25/19 09:25 Prothrombin Time 13.2 SEC (11.7-14.0) Prothromb Time International Ratio 1.0 (0.8-1.1) Activated Partial Thromboplast Time 33 SEC (24-38) White Blood Count 9.8 x10^3/uL (4.0-11.0) Red Blood Count 3.40 x10^6/uL (3.50-5.40) Hemoglobin 9.3 g/dL (12.0-15.5) Hematocrit 28.8 % (36.0-47.0) Mean Corpuscular Volume 85 fL (79-100) Mean Corpuscular Hemoglobin 27 pg (25-35) Mean Corpuscular Hemoglobin Concent 32 g/dL (31-37) Red Cell Distribution Width 15.5 % (11.5-14.5) Platelet Count 291 x10^3/uL (140-400) Neutrophils (%) (Auto) 87 % (31-73) Lymphocytes (%) (Auto) 4 % (24-48) Monocytes (%) (Auto) 7 % (0-9) Eosinophils (%) (Auto) 1 % (0-3) Basophils (%) (Auto) 0 % (0-3) Neutrophils # (Auto) 8.6 x10^3uL (1.8-7.7) Lymphocytes # (Auto) 0.4 x10^3/uL (1.0-4.8) Monocytes # (Auto) 0.7 x10^3/uL (0.0-1.1) Eosinophils # (Auto) 0.1 x10^3/uL (0.0-0.7) Basophils # (Auto) 0.0 x10^3/uL (0.0-0.2) Segmented Neutrophils % 87 % (35-66) Band Neutrophils % 5 % (0-9) Lymphocytes % 2 % (24-48) Monocytes % 5 % (0-10) Eosinophils % 1 % (0-5) Platelet Estimate Adequate (ADEQUATE) Sodium Level 130 mmol/L (136-145) Potassium Level 4.8 mmol/L (3.5-5.1) Chloride Level 93 mmol/L (98-107) Carbon Dioxide Level 28 mmol/L (21-32) Anion Gap 9 (6-14) Blood Urea Nitrogen 11 mg/dL (7-20) Creatinine 0.8 mg/dL (0.6-1.0) Estimated GFR (Cockcroft-Gault) 70.7 BUN/Creatinine Ratio 14 (6-20) Glucose Level 123 mg/dL (70-99) Calcium Level 9.0 mg/dL (8.5-10.1) Total Bilirubin 0.5 mg/dL (0.2-1.0) Aspartate Amino Transf (AST/SGOT) 37 U/L (15-37) Alanine Aminotransferase (ALT/SGPT) 64 U/L (14-59) Alkaline Phosphatase 203 U/L (46-116) Total Protein 6.2 g/dL (6.4-8.2) Albumin 2.7 g/dL (3.4-5.0) Albumin/Globulin Ratio 0.8 (1.0-1.7) Micro Impression: 1. There is old T12 compression fracture, osseous retropulsion superiorly with mild indentation upon the ventral thecal sac. 2. There is T10-T11 endplate edema greater on the left, also some mild increased signal in the T10-T11 intervertebral disc space greater on the left. While findings could be related to degenerative disc disease and reactive marrow edema, sequela of early infectious spondylitis is not excludable by imaging. Short-term follow-up imaging such as in 10 days could be beneficial if clinical suspicion for infection. Objective Assessment Ecoli UTI POA 03/20 at [place] D/w [facility] today - no sensitivities Mild confusion murmur MV regurg with flail post leaflet - no peripheral stigmata and no infections or abx for years Back pain T 10 -11 endplate edema s/p Aspiration 03/24 - cults pending -d/w [facility] - do not have any results yet Plan Plan of Care Consider pain med adjust if confusion persists or worsens Rocephin started today by primary - agree F/u disc aspiration cults/AFB/fungal and routine Labs in am D/w Nursing D/w daughter SALVATORE WOODS MD March 25, 2019 11:50
--- NOTE | 2019-03-25 12:21 | NUR ---
SW following for discharge planning. Discussed with RN, pt having IV Rocephin q24. SW met with pt to discuss SNU vs HH. Pt requested SW to speak with her daughter. SW met with pt and pt's dtr, Mandie ([phone]) at bedside. Mandie would like pt to come home and have home health, they may also consider outpatient therapy if pt is doing better a little while after going home. In regard to the possibility of IV abx, pt and pt's dtr are aware of home infusion vs outpatient. Sensitivities are still pending, so ID not sure of which abx pt needs to be on at discharge. SW provided list of home health agencies to Mandie, they will let SW know when they have made a decision. SW will continue to follow.
--- NOTE | 2019-03-25 14:23 | PDOC ---
PROGRESS NOTES Subjective Subjective She admits back pain is less. Objective Objective Vital Signs Date Time Temp Pulse Resp B/P (MAP) Pulse Ox O2 Delivery O2 Flow Rate FiO2 03/25/19 11:00 97.9 98 16 84/51 (62) 90 Room Air 97.9 03/25/19 10:45 2.0 Intake and Output 03/25/19 07:00 # Voids 3 Physical Exam Physical Exam She is alert,supine in bed and she is walking with physical therapy for short distances with roller walker. Plan Plan of Care Waiting for biopsy to rule out infectious spondylitis. Comment Review of Relevant I have reviewed the following items tolu (where applicable) has been applied. Labs Laboratory Tests Test 03/23/19 19:35 03/24/19 06:34 03/24/19 11:45 03/25/19 09:25 Erythrocyte Sedimentation Rate 70 (0-25) C-Reactive Protein, Quantitative 162.1 mg/L (0-3.3) 25-Hydroxy Vitamin D Total 34.7 ng/mL (30-100) Procalcitonin 0.21 ng/mL (0.00-0.10) Prothrombin Time 13.2 SEC (11.7-14.0) Prothromb Time International Ratio 1.0 (0.8-1.1) Activated Partial Thromboplast Time 33 SEC (24-38) White Blood Count 9.8 x10^3/uL (4.0-11.0) Red Blood Count 3.40 x10^6/uL (3.50-5.40) Hemoglobin 9.3 g/dL (12.0-15.5) Hematocrit 28.8 % (36.0-47.0) Mean Corpuscular Volume 85 fL (79-100) Mean Corpuscular Hemoglobin 27 pg (25-35) Mean Corpuscular Hemoglobin Concent 32 g/dL (31-37) Red Cell Distribution Width 15.5 % (11.5-14.5) Platelet Count 291 x10^3/uL (140-400) Neutrophils (%) (Auto) 87 % (31-73) Lymphocytes (%) (Auto) 4 % (24-48) Monocytes (%) (Auto) 7 % (0-9) Eosinophils (%) (Auto) 1 % (0-3) Basophils (%) (Auto) 0 % (0-3) Neutrophils # (Auto) 8.6 x10^3uL (1.8-7.7) Lymphocytes # (Auto) 0.4 x10^3/uL (1.0-4.8) Monocytes # (Auto) 0.7 x10^3/uL (0.0-1.1) Eosinophils # (Auto) 0.1 x10^3/uL (0.0-0.7) Basophils # (Auto) 0.0 x10^3/uL (0.0-0.2) Segmented Neutrophils % 87 % (35-66) Band Neutrophils % 5 % (0-9) Lymphocytes % 2 % (24-48) Monocytes % 5 % (0-10) Eosinophils % 1 % (0-5) Platelet Estimate Adequate (ADEQUATE) Sodium Level 130 mmol/L (136-145) Potassium Level 4.8 mmol/L (3.5-5.1) Chloride Level 93 mmol/L (98-107) Carbon Dioxide Level 28 mmol/L (21-32) Anion Gap 9 (6-14) Blood Urea Nitrogen 11 mg/dL (7-20) Creatinine 0.8 mg/dL (0.6-1.0) Estimated GFR (Cockcroft-Gault) 70.7 BUN/Creatinine Ratio 14 (6-20) Glucose Level 123 mg/dL (70-99) Calcium Level 9.0 mg/dL (8.5-10.1) Total Bilirubin 0.5 mg/dL (0.2-1.0) Aspartate Amino Transf (AST/SGOT) 37 U/L (15-37) Alanine Aminotransferase (ALT/SGPT) 64 U/L (14-59) Alkaline Phosphatase 203 U/L (46-116) Total Protein 6.2 g/dL (6.4-8.2) Albumin 2.7 g/dL (3.4-5.0) Albumin/Globulin Ratio 0.8 (1.0-1.7) Laboratory Tests Test 03/25/19 09:25 White Blood Count 9.8 x10^3/uL (4.0-11.0) Red Blood Count 3.40 x10^6/uL (3.50-5.40) Hemoglobin 9.3 g/dL (12.0-15.5) Hematocrit 28.8 % (36.0-47.0) Mean Corpuscular Volume 85 fL (79-100) Mean Corpuscular Hemoglobin 27 pg (25-35) Mean Corpuscular Hemoglobin Concent 32 g/dL (31-37) Red Cell Distribution Width 15.5 % (11.5-14.5) Platelet Count 291 x10^3/uL (140-400) Neutrophils (%) (Auto) 87 % (31-73) Lymphocytes (%) (Auto) 4 % (24-48) Monocytes (%) (Auto) 7 % (0-9) Eosinophils (%) (Auto) 1 % (0-3) Basophils (%) (Auto) 0 % (0-3) Neutrophils # (Auto) 8.6 x10^3uL (1.8-7.7) Lymphocytes # (Auto) 0.4 x10^3/uL (1.0-4.8) Monocytes # (Auto) 0.7 x10^3/uL (0.0-1.1) Eosinophils # (Auto) 0.1 x10^3/uL (0.0-0.7) Basophils # (Auto) 0.0 x10^3/uL (0.0-0.2) Segmented Neutrophils % 87 % (35-66) Band Neutrophils % 5 % (0-9) Lymphocytes % 2 % (24-48) Monocytes % 5 % (0-10) Eosinophils % 1 % (0-5) Platelet Estimate Adequate (ADEQUATE) Sodium Level 130 mmol/L (136-145) Potassium Level 4.8 mmol/L (3.5-5.1) Chloride Level 93 mmol/L (98-107) Carbon Dioxide Level 28 mmol/L (21-32) Anion Gap 9 (6-14) Blood Urea Nitrogen 11 mg/dL (7-20) Creatinine 0.8 mg/dL (0.6-1.0) Estimated GFR (Cockcroft-Gault) 70.7 BUN/Creatinine Ratio 14 (6-20) Glucose Level 123 mg/dL (70-99) Calcium Level 9.0 mg/dL (8.5-10.1) Total Bilirubin 0.5 mg/dL (0.2-1.0) Aspartate Amino Transf (AST/SGOT) 37 U/L (15-37) Alanine Aminotransferase (ALT/SGPT) 64 U/L (14-59) Alkaline Phosphatase 203 U/L (46-116) Total Protein 6.2 g/dL (6.4-8.2) Albumin 2.7 g/dL (3.4-5.0) Albumin/Globulin Ratio 0.8 (1.0-1.7) Medications Current Medications Oxycodone/ Acetaminophen (Percocet 5/325) 1 tab PRN Q4HRS PRN PO PAIN Last administered on 03/25/19 09:36; Start 03/22/19 at 15:30 Cyclobenzaprine HCl (Flexeril) 10 mg PRN Q6HRS PRN PO MUSCLE SPASMS Last administered on 03/25/19 12:02; Start 03/22/19 at 15:30 Morphine Sulfate (Morphine Sulfate) 4 mg PRN Q2HR PRN IV PAIN, MOD TO SEVERE Last administered on 03/24/19 10:11; Start 03/22/19 at 15:30 Ketorolac Tromethamine (Toradol 15mg Vial) 15 mg PRN Q6HRS PRN IV MILD PAIN Last administered on 03/25/19 09:30; Start 03/22/19 at 15:30; Stop 03/27/19 at 15:29 Lidocaine (Lidoderm) 1 patch DAILY TD Last administered on 03/25/19 09:35; Start 03/22/19 at 16:00 Miscellaneous (Lidoderm Patch Removal) 1 ea QHS MC Last administered on 03/24/19 21:00; Start 03/22/19 at 21:00 Trazodone HCl (Desyrel) 50 mg QHS PO Last administered on 03/24/19 21:21; Start 03/22/19 at 21:00 Ondansetron HCl (Zofran) 4 mg PRN Q6HRS PRN IV NAUSEA/VOMITING; Start 03/23/19 at 13:00; Stop 03/24/19 at 12:59; Status DC Fentanyl Citrate (Fentanyl 2ml Vial) 25 mcg PRN Q5MIN PRN IV MILD PAIN; Start 03/23/19 at 13:00; Stop 03/24/19 at 12:59; Status DC Fentanyl Citrate (Fentanyl 2ml Vial) 50 mcg PRN Q5MIN PRN IV MODERATE TO SEVERE PAIN; Start 03/23/19 at 13:00; Stop 03/24/19 at 12:59; Status DC Morphine Sulfate (Morphine Sulfate) 1 mg PRN Q10MIN PRN IV SEVERE PAIN; Start 03/23/19 at 13:00; Stop 03/24/19 at 12:59; Status DC Ringer's Solution 1,000 ml @ 30 mls/hr Q24H IV Last administered on 03/23/19at 13:45; Start 03/23/19 at 12:57; Stop 03/24/19 at 00:56; Status DC Hydromorphone HCl (Dilaudid) 0.5 mg PRN Q10MIN PRN IV SEV PAIN, Second choice; Start 03/23/19 at 13:00; Stop 03/24/19 at 12:59; Status DC Prochlorperazine Edisylate (Compazine) 5 mg PACU PRN PRN IV NAUSEA, MRX1; Start 03/23/19 at 13:00; Stop 03/24/19 at 12:59; Status DC Fentanyl (Duragesic 25mcg/ Hr Patch) 1 patch Q3DAYS TD Last administered on 03/23/19at 13:45; Start 03/23/19 at 14:00 Benzocaine (Hurricaine One) 3 spray 1X ONCE MM Last administered on 03/23/19at 14:45; Start 03/23/19 at 13:45; Stop 03/23/19 at 13:50; Status DC Lidocaine HCl (Glydo (Lidocaine) Jelly) 1 gordy 1X ONCE MM ; Start 03/23/19 at 13:45; Stop 03/23/19 at 13:50; Status DC Lidocaine HCl (Viscous Lidocaine) 15 ml 1X ONCE SWSW ; Start 03/23/19 at 13:45; Stop 03/23/19 at 13:50; Status DC Lidocaine HCl (Xylocaine 2% Topical 30gm Tube) 1 gordy 1X ONCE TP Last administered on 03/23/19at 13:45; Start 03/23/19 at 14:00; Stop 03/23/19 at 1 4:01; Status DC Lidocaine HCl (Viscous Lidocaine) 15 ml STK-MED ONCE .ROUTE ; Start 03/23/19 at 13:51; Stop 03/23/19 at 13:52; Status DC Propofol 20 ml @ As Directed STK-MED ONCE IV ; Start 03/23/19 at 14:44; Stop 03/23/19 at 14:45; Status DC Lidocaine/Sodium Bicarbonate (Buffered Lidocaine 1%) 3 ml STK-MED ONCE .ROUTE ; Start 03/24/19 at 13:21; Stop 03/24/19 at 13:22; Status DC Midazolam HCl (Versed) 2 mg STK-MED ONCE .ROUTE ; Start 03/24/19 at 13:23; Stop 03/24/19 at 13:24; Status DC Fentanyl Citrate (Fentanyl 2ml Vial) 100 mcg STK-MED ONCE .ROUTE ; Start 03/24/19 at 13:23; Stop 03/24/19 at 13:24; Status DC Lidocaine/Sodium Bicarbonate (Buffered Lidocaine 1%) 3 ml 1X ONCE IJ Last administered on 03/24/19at 14:20; Start 03/24/19 at 13:30; Stop 03/24/19 at 13:35; Status DC Midazolam HCl (Versed) 2 mg 1X ONCE IV Last administered on 03/24/19at 14:20; Start 03/24/19 at 13:30; Stop 03/24/19 at 13:35; Status DC Fentanyl Citrate (Fentanyl 2ml Vial) 100 mcg 1X ONCE IV Last administered on 03/24/19at 14:19; Start 03/24/19 at 13:30; Stop 03/24/19 at 13:35; Status DC Metoprolol Tartrate (Lopressor) 25 mg BID PO Last administered on 03/25/19at 09:31; Start 03/24/19 at 21:00 Ceftriaxone Sodium (Rocephin) 1 gm Q24H IVP Last administered on 03/25/19at 09:33; Start 03/25/19 at 10:00 Lactobacillus Rhamnosus (Culturelle) 1 cap BID PO ; Start 03/25/19 at 21:00 Active Scripts Active Reported No Known Medications Prior To Admisstion (Info) Each 1 Each DAILY Vitals/I & O Vital Sign - Last 24 Hours 03/24/19 03/24/19 03/24/19 03/24/19 14:21 14:45 15:00 15:15 Temp 98.0 98.0 Pulse 97 100 98 93 Resp 16 20 B/P (MAP) 99/56 (70) 101/39 (59) 97/38 (57) Pulse Ox 98 92 92 96 O2 Delivery Nasal Cannula Room Air Room Air Room Air O2 Flow Rate 2.0 03/24/19 03/24/19 03/24/19 03/24/19 15:30 16:00 17:00 17:19 Pulse 96 103 101 Resp 18 B/P (MAP) 101/37 (58) 130/66 (87) 133/66 (88) Pulse Ox 92 95 96 O2 Delivery Room Air Room Air Room Air Room Air 03/24/19 03/24/19 03/24/19 03/24/19 19:00 20:00 21:20 23:00 Temp 98.4 98.5 98.4 98.5 Pulse 99 99 75 Resp 18 18 B/P (MAP) 121/74 (90) 121/74 104/61 (75) Pulse Ox 93 90 O2 Delivery Room Air Room Air Room Air 03/24/19 03/25/19 03/25/19 03/25/19 23:50 03:00 06:14 07:00 Temp 99.0 97.8 99.0 97.8 Pulse 103 104 Resp 18 16 B/P (MAP) 121/71 (88) 93/56 (68) Pulse Ox 92 98 O2 Delivery Room Air Room Air Room Air Room Air 03/25/19 03/25/19 03/25/19 03/25/19 08:00 09:31 09:36 10:45 Pulse 104 B/P (MAP) 93/56 Pulse Ox 98 98 O2 Delivery Room Air Room Air Room Air O2 Flow Rate 2.0 2.0 2.0 03/25/19 11:00 Temp 97.9 97.9 Pulse 98 Resp 16 B/P (MAP) 84/51 (62) Pulse Ox 90 O2 Delivery Room Air EVIE BHATTI MD March 25, 2019 14:23
[2019-03-25] MEDS: FERROUS SULFATE 325 MG TABLET. PO SCH (16:14)
[2019-03-25] MEDS: PATCH REMOVAL. MC SCH (20:55)
[2019-03-25] MEDS: LACTOBACILLUS RHAMNOSUS GG 1 CAPSULE. PO SCH (20:58)
[2019-03-25] MEDS: traZODone 50 MG TABLET. PO SCH (20:59)
[2019-03-25] MEDS ORDERED: SENNOSIDES/DOCUSATE 8.6/50MG TABLET. PO PRN (21:00)
[2019-03-25] MEDS: PSYLLIUM HUSK (SUGAR FREE) 1 PKT PACKET PO SCH (22:54)
[2019-03-25] MEDS: POLYETHYLENE GLYCOL 3350 17 GM PACKET. PO SCH (22:54)
[2019-03-26] VITALS (7 sets, daily range): BP systolic 93–136; BP diastolic 55–89
[2019-03-26] MEDS: KETOROLAC 15 MG/ML VIAL. IV PRN ×3 (04:38→20:16)
[2019-03-26] MEDS: oxyCODONE/APAP 5/325 1 TAB TABLET PO PRN ×3 (04:43→19:45)
[2019-03-26] MEDS: CYCLOBENZAPRINE 10 MG TABLET. PO PRN ×2 (04:43→16:55)
[2019-03-26 07:37] LABS: ALBUMIN 2.4 g/dL (3.4-5.0); ALBUMIN/GLOBULIN RATIO 0.7 (1.0-1.7); CALCIUM 8.4 mg/dL (8.5-10.1); CREATININE 0.7 mg/dL (0.6-1.0); GFR 82.5; POTASSIUM 4.5 mmol/L (3.5-5.1); TOTAL BILIRUBIN 0.3 mg/dL (0.2-1.0); TOTAL PROTEIN 5.7 g/dL (6.4-8.2)
[2019-03-26] MEDS: POLYETHYLENE GLYCOL 3350 17 GM PACKET. PO SCH (08:02)
[2019-03-26] MEDS: PSYLLIUM HUSK (SUGAR FREE) 1 PKT PACKET PO SCH (08:02)
[2019-03-26] MEDS: fentaNYL 25MCG/HR PATCH 1 PATCH PATCH.TD72 TD SCH (08:03)
[2019-03-26] MEDS: LIDOCAINE (700MG/PATCH) PATCH. TD SCH (08:06)
[2019-03-26] MEDS: FERROUS SULFATE 325 MG TABLET. PO SCH ×2 (08:10→16:55)
[2019-03-26] MEDS: METOPROLOL TART IMMED RELEASE 25 MG TABLET. PO SCH ×2 (08:10→21:00)
[2019-03-26] MEDS: LACTOBACILLUS RHAMNOSUS GG 1 CAPSULE. PO SCH ×2 (08:10→20:39)
--- NOTE | 2019-03-26 08:49 | PDOC ---
PROGRESS NOTES Subjective Subjective No new complaints. Objective Objective Vital Signs Date Time Temp Pulse Resp B/P (MAP) Pulse Ox O2 Delivery O2 Flow Rate FiO2 03/26/19 08:14 84 106/63 (77) 03/26/19 08:03 Room Air 03/26/19 07:00 98.3 18 96 98.3 03/25/19 17:15 2.0 Intake and Output 03/26/19 06:59 # Voids 4 Physical Exam Physical Exam She is sitting up in bedside chair with back support on and she admits less pain in her back with brace and she denies any dysuria. She is walking with roller walker in her room. Plan Plan of Care Waiting for biopsy report. Comment Review of Relevant I have reviewed the following items tolu (where applicable) has been applied. Labs Laboratory Tests Test 03/24/19 11:45 03/25/19 09:25 03/26/19 05:20 Prothrombin Time 13.2 SEC (11.7-14.0) Prothromb Time International Ratio 1.0 (0.8-1.1) Activated Partial Thromboplast Time 33 SEC (24-38) White Blood Count 9.8 x10^3/uL (4.0-11.0) Red Blood Count 3.40 x10^6/uL (3.50-5.40) Hemoglobin 9.3 g/dL (12.0-15.5) Hematocrit 28.8 % (36.0-47.0) Mean Corpuscular Volume 85 fL (79-100) Mean Corpuscular Hemoglobin 27 pg (25-35) Mean Corpuscular Hemoglobin Concent 32 g/dL (31-37) Red Cell Distribution Width 15.5 % (11.5-14.5) Platelet Count 291 x10^3/uL (140-400) Neutrophils (%) (Auto) 87 % (31-73) Lymphocytes (%) (Auto) 4 % (24-48) Monocytes (%) (Auto) 7 % (0-9) Eosinophils (%) (Auto) 1 % (0-3) Basophils (%) (Auto) 0 % (0-3) Neutrophils # (Auto) 8.6 x10^3uL (1.8-7.7) Lymphocytes # (Auto) 0.4 x10^3/uL (1.0-4.8) Monocytes # (Auto) 0.7 x10^3/uL (0.0-1.1) Eosinophils # (Auto) 0.1 x10^3/uL (0.0-0.7) Basophils # (Auto) 0.0 x10^3/uL (0.0-0.2) Segmented Neutrophils % 87 % (35-66) Band Neutrophils % 5 % (0-9) Lymphocytes % 2 % (24-48) Monocytes % 5 % (0-10) Eosinophils % 1 % (0-5) Platelet Estimate Adequate (ADEQUATE) Sodium Level 130 mmol/L (136-145) 130 mmol/L (136-145) Potassium Level 4.8 mmol/L (3.5-5.1) 4.5 mmol/L (3.5-5.1) Chloride Level 93 mmol/L (98-107) 95 mmol/L (98-107) Carbon Dioxide Level 28 mmol/L (21-32) 29 mmol/L (21-32) Anion Gap 9 (6-14) 6 (6-14) Blood Urea Nitrogen 11 mg/dL (7-20) 12 mg/dL (7-20) Creatinine 0.8 mg/dL (0.6-1.0) 0.7 mg/dL (0.6-1.0) Estimated GFR (Cockcroft-Gault) 70.7 82.5 BUN/Creatinine Ratio 14 (6-20) 17 (6-20) Glucose Level 123 mg/dL (70-99) 105 mg/dL (70-99) Calcium Level 9.0 mg/dL (8.5-10.1) 8.4 mg/dL (8.5-10.1) Total Bilirubin 0.5 mg/dL (0.2-1.0) 0.3 mg/dL (0.2-1.0) Aspartate Amino Transf (AST/SGOT) 37 U/L (15-37) 34 U/L (15-37) Alanine Aminotransferase (ALT/SGPT) 64 U/L (14-59) 51 U/L (14-59) Alkaline Phosphatase 203 U/L (46-116) 177 U/L (46-116) Total Protein 6.2 g/dL (6.4-8.2) 5.7 g/dL (6.4-8.2) Albumin 2.7 g/dL (3.4-5.0) 2.4 g/dL (3.4-5.0) Albumin/Globulin Ratio 0.8 (1.0-1.7) 0.7 (1.0-1.7) Laboratory Tests Test 03/25/19 09:25 03/26/19 05:20 White Blood Count 9.8 x10^3/uL (4.0-11.0) Red Blood Count 3.40 x10^6/uL (3.50-5.40) Hemoglobin 9.3 g/dL (12.0-15.5) Hematocrit 28.8 % (36.0-47.0) Mean Corpuscular Volume 85 fL (79-100) Mean Corpuscular Hemoglobin 27 pg (25-35) Mean Corpuscular Hemoglobin Concent 32 g/dL (31-37) Red Cell Distribution Width 15.5 % (11.5-14.5) Platelet Count 291 x10^3/uL (140-400) Neutrophils (%) (Auto) 87 % (31-73) Lymphocytes (%) (Auto) 4 % (24-48) Monocytes (%) (Auto) 7 % (0-9) Eosinophils (%) (Auto) 1 % (0-3) Basophils (%) (Auto) 0 % (0-3) Neutrophils # (Auto) 8.6 x10^3uL (1.8-7.7) Lymphocytes # (Auto) 0.4 x10^3/uL (1.0-4.8) Monocytes # (Auto) 0.7 x10^3/uL (0.0-1.1) Eosinophils # (Auto) 0.1 x10^3/uL (0.0-0.7) Basophils # (Auto) 0.0 x10^3/uL (0.0-0.2) Segmented Neutrophils % 87 % (35-66) Band Neutrophils % 5 % (0-9) Lymphocytes % 2 % (24-48) Monocytes % 5 % (0-10) Eosinophils % 1 % (0-5) Platelet Estimate Adequate (ADEQUATE) Sodium Level 130 mmol/L (136-145) 130 mmol/L (136-145) Potassium Level 4.8 mmol/L (3.5-5.1) 4.5 mmol/L (3.5-5.1) Chloride Level 93 mmol/L (98-107) 95 mmol/L (98-107) Carbon Dioxide Level 28 mmol/L (21-32) 29 mmol/L (21-32) Anion Gap 9 (6-14) 6 (6-14) Blood Urea Nitrogen 11 mg/dL (7-20) 12 mg/dL (7-20) Creatinine 0.8 mg/dL (0.6-1.0) 0.7 mg/dL (0.6-1.0) Estimated GFR (Cockcroft-Gault) 70.7 82.5 BUN/Creatinine Ratio 14 (6-20) 17 (6-20) Glucose Level 123 mg/dL (70-99) 105 mg/dL (70-99) Calcium Level 9.0 mg/dL (8.5-10.1) 8.4 mg/dL (8.5-10.1) Total Bilirubin 0.5 mg/dL (0.2-1.0) 0.3 mg/dL (0.2-1.0) Aspartate Amino Transf (AST/SGOT) 37 U/L (15-37) 34 U/L (15-37) Alanine Aminotransferase (ALT/SGPT) 64 U/L (14-59) 51 U/L (14-59) Alkaline Phosphatase 203 U/L (46-116) 177 U/L (46-116) Total Protein 6.2 g/dL (6.4-8.2) 5.7 g/dL (6.4-8.2) Albumin 2.7 g/dL (3.4-5.0) 2.4 g/dL (3.4-5.0) Albumin/Globulin Ratio 0.8 (1.0-1.7) 0.7 (1.0-1.7) Microbiology 03/24/19 Anaerobic/Aerobic Culture, Resulted Pending 03/24/19 Anaerobic Culture Result 1 (MATTHEW), Resulted Pending 03/24/19 Aerobic Culture, Resulted Pending 03/24/19 Aerobic Culture Result 1 (MATTHEW), Resulted Pending 03/24/19 Gram Stain - Final, Resulted 03/24/19 Gram Stain Result 1 (MATTHEW) - Final, Resulted 5/15/19 Gram Stain Result 2 (MATTHEW) - Final, Resulted Medications Current Medications Oxycodone/ Acetaminophen (Percocet 5/325) 1 tab PRN Q4HRS PRN PO PAIN Last administered on 03/26/19 04:43; Start 03/22/19 at 15:30 Cyclobenzaprine HCl (Flexeril) 10 mg PRN Q6HRS PRN PO MUSCLE SPASMS Last administered on 03/26/19 04:43; Start 03/22/19 at 15:30 Morphine Sulfate (Morphine Sulfate) 4 mg PRN Q2HR PRN IV PAIN, MOD TO SEVERE Last administered on 03/24/19 10:11; Start 03/22/19 at 15:30 Ketorolac Tromethamine (Toradol 15mg Vial) 15 mg PRN Q6HRS PRN IV MILD PAIN Last administered on 03/26/19 04:38; Start 03/22/19 at 15:30; Stop 03/27/19 at 15:29 Lidocaine (Lidoderm) 1 patch DAILY TD Last administered on 03/26/19 08:06; Start 03/22/19 at 16:00 Miscellaneous (Lidoderm Patch Removal) 1 ea QHS MC Last administered on 03/25/19 20:55; Start 03/22/19 at 21:00 Trazodone HCl (Desyrel) 50 mg QHS PO Last administered on 03/25/19 20:59; Start 03/22/19 at 21:00 Ondansetron HCl (Zofran) 4 mg PRN Q6HRS PRN IV NAUSEA/VOMITING; Start 03/23/19 at 13:00; Stop 03/24/19 at 12:59; Status DC Fentanyl Citrate (Fentanyl 2ml Vial) 25 mcg PRN Q5MIN PRN IV MILD PAIN; Start 03/23/19 at 13:00; Stop 03/24/19 at 12:59; Status DC Fentanyl Citrate (Fentanyl 2ml Vial) 50 mcg PRN Q5MIN PRN IV MODERATE TO SEVERE PAIN; Start 03/23/19 at 13:00; Stop 03/24/19 at 12:59; Status DC Morphine Sulfate (Morphine Sulfate) 1 mg PRN Q10MIN PRN IV SEVERE PAIN; Start 03/23/19 at 13:00; Stop 03/24/19 at 12:59; Status DC Ringer's Solution 1,000 ml @ 30 mls/hr Q24H IV Last administered on 03/23/19at 13:45; Start 03/23/19 at 12:57; Stop 03/24/19 at 00:56; Status DC Hydromorphone HCl (Dilaudid) 0.5 mg PRN Q10MIN PRN IV SEV PAIN, Second choice; Start 03/23/19 at 13:00; Stop 03/24/19 at 12:59; Status DC Prochlorperazine Edisylate (Compazine) 5 mg PACU PRN PRN IV NAUSEA, MRX1; Start 03/23/19 at 13:00; Stop 03/24/19 at 12:59; Status DC Fentanyl (Duragesic 25mcg/ Hr Patch) 1 patch Q3DAYS TD Last administered on 03/26/19at 08:03; Start 03/23/19 at 14:00 Benzocaine (Hurricaine One) 3 spray 1X ONCE MM Last administered on 03/23/19at 14:45; Start 03/23/19 at 13:45; Stop 03/23/19 at 13:50; Status DC Lidocaine HCl (Glydo (Lidocaine) Jelly) 1 gordy 1X ONCE MM ; Start 03/23/19 at 13:45; Stop 03/23/19 at 13:50; Status DC Lidocaine HCl (Viscous Lidocaine) 15 ml 1X ONCE SWSW ; Start 03/23/19 at 13:45; Stop 03/23/19 at 13:50; Status DC Lidocaine HCl (Xylocaine 2% Topical 30gm Tube) 1 gordy 1X ONCE TP Last admini stered on 03/23/19at 13:45; Start 03/23/19 at 14:00; Stop 03/23/19 at 14:01; Status DC Lidocaine HCl (Viscous Lidocaine) 15 ml STK-MED ONCE .ROUTE ; Start 03/23/19 at 13:51; Stop 03/23/19 at 13:52; Status DC Propofol 20 ml @ As Directed STK-MED ONCE IV ; Start 03/23/19 at 14:44; Stop 03/23/19 at 14:45; Status DC Lidocaine/Sodium Bicarbonate (Buffered Lidocaine 1%) 3 ml STK-MED ONCE .ROUTE ; Start 03/24/19 at 13:21; Stop 03/24/19 at 13:22; Status DC Midazolam HCl (Versed) 2 mg STK-MED ONCE .ROUTE ; Start 03/24/19 at 13:23; Stop 03/24/19 at 13:24; Status DC Fentanyl Citrate (Fentanyl 2ml Vial) 100 mcg STK-MED ONCE .ROUTE ; Start 03/24/19 at 13:23; Stop 03/24/19 at 13:24; Status DC Lidocaine/Sodium Bicarbonate (Buffered Lidocaine 1%) 3 ml 1X ONCE IJ Last administered on 03/24/19at 14:20; Start 03/24/19 at 13:30; Stop 03/24/19 at 13:35; Status DC Midazolam HCl (Versed) 2 mg 1X ONCE IV Last administered on 03/24/19at 14:20; Start 03/24/19 at 13:30; Stop 03/24/19 at 13:35; Status DC Fentanyl Citrate (Fentanyl 2ml Vial) 100 mcg 1X ONCE IV Last administered on 03/24/19at 14:19; Start 03/24/19 at 13:30; Stop 03/24/19 at 13:35; Status DC Metoprolol Tartrate (Lopressor) 25 mg BID PO Last administered on 03/25/19at 22:55; Start 03/24/19 at 21:00 Ceftriaxone Sodium (Rocephin) 1 gm Q24H IVP Last administered on 03/25/19at 09:33; Start 03/25/19 at 10:00 Lactobacillus Rhamnosus (Culturelle) 1 cap BID PO Last administered on 03/26/19at 08:10; Start 03/25/19 at 21:00 Ferrous Sulfate (Feosol) 325 mg BIDWMEALS PO Last administered on 03/26/19at 08:10; Start 03/25/19 at 17:00 Senna/Docusate Sodium (Senna Plus) 2 tab PRN BID PRN PO CONSTIPATION; Start 03/25/19 at 21:00 Polyethylene Glycol (miraLAX PACKET) 17 gm DAILY PO Last administered on 03/25/19at 22:54; Start 03/25/19 at 21:00 Psyllium Hydrophilic Mucilloid (Metamucil Fiber Packet) 1 pkt DAILY PO Last administered on 03/25/19at 22:54; Start 03/25/19 at 21:00 Active Scripts Active Reported No Known Medications Prior To Admisstion (Info) Each 1 Each DAILY Vitals/I & O Vital Sign - Last 24 Hours 03/25/19 03/25/19 03/25/19 03/25/19 09:31 09:36 11:00 15:00 Temp 97.9 98.1 97.9 98.1 Pulse 104 98 98 Resp 16 18 B/P (MAP) 93/56 84/51 (62) 131/75 (93) Pulse Ox 98 90 96 O2 Delivery Room Air Room Air Room Air O2 Flow Rate 2.0 03/25/19 03/25/19 03/25/19 03/25/19 16:14 17:15 19:00 20:00 Temp 97.4 97.4 Pulse 88 Resp 18 B/P (MAP) 112/59 (76) Pulse Ox 96 94 O2 Delivery Room Air Room Air Room Air O2 Flow Rate 2.0 03/25/19 03/25/19 03/25/19 03/25/19 21:02 22:18 22:55 23:00 Temp 97.9 97.9 Pulse 88 88 Resp 18 B/P (MAP) 112/59 100/59 (73) Pulse Ox 94 94 O2 Delivery Room Air Room Air Room Air 03/26/19 03/26/19 03/26/19 03/26/19 03:00 04:43 05:43 07:00 Temp 97.4 98.3 97.4 98.3 Pulse 84 82 Resp 18 18 B/P (MAP) 104/55 (71) 93/55 (68) Pulse Ox 93 96 O2 Delivery Room Air Room Air Room Air Room Air 03/26/19 03/26/19 03/26/19 08:03 08:10 08:14 Pulse 84 84 B/P (MAP) 106/63 106/63 (77) O2 Delivery Room Air EVIE BHATTI MD March 26, 2019 08:49
--- NOTE | 2019-03-26 09:06 | PDOC ---
Infectious Disease Note Subjective Subjective Doing ok. Pain controlled and constipation relieved Less confused today No N/V/D/SOA/Rash ROS ROS o/w neg Vital Sign Vital Signs Vital Signs Date Time Temp Pulse Resp B/P (MAP) Pulse Ox O2 Delivery O2 Flow Rate FiO2 03/26/19 08:14 84 106/63 (77) 03/26/19 08:03 Room Air 03/26/19 07:00 98.3 18 96 98.3 03/25/19 17:15 2.0 Physical Exam PHYSICAL EXAM CONSTITUTIONAL: She is cooperative. She is in no acute distress. She is sitting in a chair of bed. HEENT: Pupils equal and reactive. She has normal conjunctivae. Oral cavity, pharynx is clear. No signs of any petechial hemorrhages. NECK: Supple. No JVD. LUNGS: Clear to auscultation. HEART: S1 and S2 with a 2/6 murmur. ABDOMEN: Soft, nontender and nondistended with positive bowel sounds. Mild distension EXTREMITIES: Without clubbing, cyanosis or gross edema. She has no splinter hemorrhages in her fingers. SKIN: Warm to touch without signs of rash. NEUROLOGICAL: She is nonfocal. PSYCHIATRIC: Affect is appropriate and pleasant. Labs Lab Laboratory Tests Test 03/25/19 09:25 03/26/19 05:20 White Blood Count 9.8 x10^3/uL (4.0-11.0) Red Blood Count 3.40 x10^6/uL (3.50-5.40) Hemoglobin 9.3 g/dL (12.0-15.5) Hematocrit 28.8 % (36.0-47.0) Mean Corpuscular Volume 85 fL (79-100) Mean Corpuscular Hemoglobin 27 pg (25-35) Mean Corpuscular Hemoglobin Concent 32 g/dL (31-37) Red Cell Distribution Width 15.5 % (11.5-14.5) Platelet Count 291 x10^3/uL (140-400) Neutrophils (%) (Auto) 87 % (31-73) Lymphocytes (%) (Auto) 4 % (24-48) Monocytes (%) (Auto) 7 % (0-9) Eosinophils (%) (Auto) 1 % (0-3) Basophils (%) (Auto) 0 % (0-3) Neutrophils # (Auto) 8.6 x10^3uL (1.8-7.7) Lymphocytes # (Auto) 0.4 x10^3/uL (1.0-4.8) Monocytes # (Auto) 0.7 x10^3/uL (0.0-1.1) Eosinophils # (Auto) 0.1 x10^3/uL (0.0-0.7) Basophils # (Auto) 0.0 x10^3/uL (0.0-0.2) Segmented Neutrophils % 87 % (35-66) Band Neutrophils % 5 % (0-9) Lymphocytes % 2 % (24-48) Monocytes % 5 % (0-10) Eosinophils % 1 % (0-5) Platelet Estimate Adequate (ADEQUATE) Sodium Level 130 mmol/L (136-145) 130 mmol/L (136-145) Potassium Level 4.8 mmol/L (3.5-5.1) 4.5 mmol/L (3.5-5.1) Chloride Level 93 mmol/L (98-107) 95 mmol/L (98-107) Carbon Dioxide Level 28 mmol/L (21-32) 29 mmol/L (21-32) Anion Gap 9 (6-14) 6 (6-14) Blood Urea Nitrogen 11 mg/dL (7-20) 12 mg/dL (7-20) Creatinine 0.8 mg/dL (0.6-1.0) 0.7 mg/dL (0.6-1.0) Estimated GFR (Cockcroft-Gault) 70.7 82.5 BUN/Creatinine Ratio 14 (6-20) 17 (6-20) Glucose Level 123 mg/dL (70-99) 105 mg/dL (70-99) Calcium Level 9.0 mg/dL (8.5-10.1) 8.4 mg/dL (8.5-10.1) Total Bilirubin 0.5 mg/dL (0.2-1.0) 0.3 mg/dL (0.2-1.0) Aspartate Amino Transf (AST/SGOT) 37 U/L (15-37) 34 U/L (15-37) Alanine Aminotransferase (ALT/SGPT) 64 U/L (14-59) 51 U/L (14-59) Alkaline Phosphatase 203 U/L (46-116) 177 U/L (46-116) Total Protein 6.2 g/dL (6.4-8.2) 5.7 g/dL (6.4-8.2) Albumin 2.7 g/dL (3.4-5.0) 2.4 g/dL (3.4-5.0) Albumin/Globulin Ratio 0.8 (1.0-1.7) 0.7 (1.0-1.7) Micro /15 Few gram positive cocci in pairs, chains, and clusters Impression: 1. There is old T12 compression fracture, osseous retropulsion superiorly with mild indentation upon the ventral thecal sac. 2. There is T10-T11 endplate edema greater on the left, also some mild increased signal in the T10-T11 intervertebral disc space greater on the left. While findings could be related to degenerative disc disease and reactive marrow edema, sequela of early infectious spondylitis is not excludable by imaging. Short-term follow-up imaging such as in 10 days could be beneficial if clinical suspicion for infection. Objective Assessment Ecoli UTI POA 03/20 at [facility] D/w [facility] today - Mild confusion - better murmur MV regurg with flail post leaflet - no peripheral stigmata and no infections or abx for years Back pain T 10 -11 endplate edema s/p Aspiration 03/24 - GPC pairs/chains/clusters- Plan Plan of Care Add Vanc PICC line Rocephin started 03/25 by primary - agree F/u disc aspiration cults/AFB/fungal and routine Labs in am D/w Nursing D/w daughter D/w SALVATORE Pratt MD March 26, 2019 09:06
[2019-03-26] MEDS: cefTRIAXone IV Push 1 GM VIAL. IVP SCH (09:50)
[2019-03-26] MEDS ORDERED: VANCOMYCIN 1.75 GM in IV NORMAL SALINE 500ML BAG 500 ML IV ONE (10:00)
--- NOTE | 2019-03-26 10:21 | PDOC ---
PROGRESS NOTES Chief Complaint Chief Complaint Acute back pain, plain film showed possible compression fx at T12, MRI shows T10-11 lucency in disc, physiatry consulted - s/p IR biopsy for discitis, sed rate and crp highly elevated, consult ID Heart murmur - mitral valve flair leaflet with regurgitation, consulted cardiology Anemia, hgb 8.5, iron level low, TIBC low as chronic disease, b12 WNL, retic WNL, possibly hemolyzing from flail valve or possibly with infection of spine UTI - 100K GNR from [facility] culture, will start empiric antibiotics, vanc and rocephin Ecoli UTI POA 03/20 at [place] - Mild confusion - better murmur MV regurg with flail post leaflet - no peripheral stigmata and no infections or abx Back pain T 10 -11 endplate edema s/p Aspiration 03/24 - GPC pairs/chains/clusters- SEPSIS, ID Following 45 min pt exam, chart review., > 50% of time spent with exam, chart review, pt care coordination History of Present Illness History of Present Illness She had been admitted to [facility] 1.5 days prior for acute back pain, she was mowing her yard, did well, then went to bed, and the next day could not get out of bed. Thoracic MRI shows T10-11 disc inflammatory process and endplate as well. 03/23: She was noted with anemia, echo reviewed showing mitral regurgitation, MRI - T10-11 discitis? and ADALBERTO mitral regurgitation with flail leaflet?. ESR and CRP elevated 03/24: To IR for disc biopsy and culture today. ID consulted. Acute pain to lower spinal area, with pain that is worse with movement, and has crampy tendency. Urine from [facility] shows 100,000cfu GNR. Questions answered to patient and daughter. Vitals Vitals Vital Signs Date Time Temp Pulse Resp B/P (MAP) Pulse Ox O2 Delivery O2 Flow Rate FiO2 03/26/19 08:14 84 106/63 (77) 03/26/19 08:03 Room Air 03/26/19 07:00 98.3 18 96 98.3 03/25/19 17:15 2.0 Physical Exam Physical Exam CONSTITUTIONAL: She is cooperative. She is in MILD acute distress. She is sitting in a chair of bed. HEENT: Pupils equal and reactive. She has normal conjunctivae. Oral cavity, pharynx is clear. No signs of any petechial hemorrhages. NECK: Supple. No JVD. LUNGS: Clear to auscultation. HEART: S1 and S2 with a 2/6 murmur. ABDOMEN: Soft, nontender and nondistended with positive bowel sounds. Mild distension EXTREMITIES: Without clubbing, cyanosis or gross edema. She has no splinter hemorrhages in her fingers. SKIN: Warm to touch without signs of rash. NEUROLOGICAL: She is nonfocal. PSYCHIATRIC: Affect is appropriate and pleasant. General: Alert, Oriented X3, Cooperative, No acute distress Heart: Regular rate (SR), Normal S1 Lungs: Clear Abdomen: Normal bowel sounds, Soft, No tenderness Extremities: No clubbing, No cyanosis, Other (1+bilateral LE pitting edema) Skin: No breakdown, No significant lesion Labs LABS PATIENT: RELL SPARKS ACCT: [id number] LOC: [address] [place] [address] U: [id number] AGE/SX: 73/F ROOM: [facility] RE03/22/[address]: LEIA ELENA MD : 1945 BED: 1 DIS: STATUS: ADM IN TLOC: SPEC #: [id number] NANCY: 03/24/19 STATUS: RES REQ #: [id number] RECD: 03/24/[address]: SALVATORE WOODS MD SOURCE: BACK ENTR: 03/24/[address] [facility] [address]: AHMET LEON DO [facility]: EMILY BRUNO MD, SIVAKOTI R MD MARSH, IRA W MD ORDERED: ANAER/AEROB/GS Procedure Result ANAEROBIC-AEROBIC CULTURE PENDING ANAEROBIC RES 1 PENDING AEROBIC CULT PENDING AEROBIC RES 1 PENDING GRAM STAIN Final Final report GRAM STAIN RES 1 Final Comment No white blood cells seen. GRAM STAIN RES 2 Final Comment Few gram positive cocci in pairs, chains, and clusters Performed at: DA - [facility] [address], [place], [place] [id number] [employer]: MARGARITO Benton MD, Phone: [phone] Laboratory Tests Test 03/26/19 05:20 Sodium Level 130 mmol/L (136-145) Potassium Level 4.5 mmol/L (3.5-5.1) Chloride Level 95 mmol/L (98-107) Carbon Dioxide Level 29 mmol/L (21-32) Anion Gap 6 (6-14) Blood Urea Nitrogen 12 mg/dL (7-20) Creatinine 0.7 mg/dL (0.6-1.0) Estimated GFR (Cockcroft-Gault) 82.5 BUN/Creatinine Ratio 17 (6-20) Glucose Level 105 mg/dL (70-99) Calcium Level 8.4 mg/dL (8.5-10.1) Total Bilirubin 0.3 mg/dL (0.2-1.0) Aspartate Amino Transf (AST/SGOT) 34 U/L (15-37) Alanine Aminotransferase (ALT/SGPT) 51 U/L (14-59) Alkaline Phosphatase 177 U/L (46-116) Total Protein 5.7 g/dL (6.4-8.2) Albumin 2.4 g/dL (3.4-5.0) Albumin/Globulin Ratio 0.7 (1.0-1.7) Comment Review of Relevant I have reviewed the following items tolu (where applicable) has been applied. Labs Laboratory Tests Test 03/24/19 11:45 03/25/19 09:25 03/26/19 05:20 Prothrombin Time 13.2 SEC (11.7-14.0) Prothromb Time International Ratio 1.0 (0.8-1.1) Activated Partial Thromboplast Time 33 SEC (24-38) White Blood Count 9.8 x10^3/uL (4.0-11.0) Red Blood Count 3.40 x10^6/uL (3.50-5.40) Hemoglobin 9.3 g/dL (12.0-15.5) Hematocrit 28.8 % (36.0-47.0) Mean Corpuscular Volume 85 fL (79-100) Mean Corpuscular Hemoglobin 27 pg (25-35) Mean Corpuscular Hemoglobin Concent 32 g/dL (31-37) Red Cell Distribution Width 15.5 % (11.5-14.5) Platelet Count 291 x10^3/uL (140-400) Neutrophils (%) (Auto) 87 % (31-73) Lymphocytes (%) (Auto) 4 % (24-48) Monocytes (%) (Auto) 7 % (0-9) Eosinophils (%) (Auto) 1 % (0-3) Basophils (%) (Auto) 0 % (0-3) Neutrophils # (Auto) 8.6 x10^3uL (1.8-7.7) Lymphocytes # (Auto) 0.4 x10^3/uL (1.0-4.8) Monocytes # (Auto) 0.7 x10^3/uL (0.0-1.1) Eosinophils # (Auto) 0.1 x10^3/uL (0.0-0.7) Basophils # (Auto) 0.0 x10^3/uL (0.0-0.2) Segmented Neutrophils % 87 % (35-66) Band Neutrophils % 5 % (0-9) Lymphocytes % 2 % (24-48) Monocytes % 5 % (0-10) Eosinophils % 1 % (0-5) Platelet Estimate Adequate (ADEQUATE) Sodium Level 130 mmol/L (136-145) 130 mmol/L (136-145) Potassium Level 4.8 mmol/L (3.5-5.1) 4.5 mmol/L (3.5-5.1) Chloride Level 93 mmol/L (98-107) 95 mmol/L (98-107) Carbon Dioxide Level 28 mmol/L (21-32) 29 mmol/L (21-32) Anion Gap 9 (6-14) 6 (6-14) Blood Urea Nitrogen 11 mg/dL (7-20) 12 mg/dL (7-20) Creatinine 0.8 mg/dL (0.6-1.0) 0.7 mg/dL (0.6-1.0) Estimated GFR (Cockcroft-Gault) 70.7 82.5 BUN/Creatinine Ratio 14 (6-20) 17 (6-20) Glucose Level 123 mg/dL (70-99) 105 mg/dL (70-99) Calcium Level 9.0 mg/dL (8.5-10.1) 8.4 mg/dL (8.5-10.1) Total Bilirubin 0.5 mg/dL (0.2-1.0) 0.3 mg/dL (0.2-1.0) Aspartate Amino Transf (AST/SGOT) 37 U/L (15-37) 34 U/L (15-37) Alanine Aminotransferase (ALT/SGPT) 64 U/L (14-59) 51 U/L (14-59) Alkaline Phosphatase 203 U/L (46-116) 177 U/L (46-116) Total Protein 6.2 g/dL (6.4-8.2) 5.7 g/dL (6.4-8.2) Albumin 2.7 g/dL (3.4-5.0) 2.4 g/dL (3.4-5.0) Albumin/Globulin Ratio 0.8 (1.0-1.7) 0.7 (1.0-1.7) Laboratory Tests Test 03/26/19 05:20 Sodium Level 130 mmol/L (136-145) Potassium Level 4.5 mmol/L (3.5-5.1) Chloride Level 95 mmol/L (98-107) Carbon Dioxide Level 29 mmol/L (21-32) Anion Gap 6 (6-14) Blood Urea Nitrogen 12 mg/dL (7-20) Creatinine 0.7 mg/dL (0.6-1.0) Estimated GFR (Cockcroft-Gault) 82.5 BUN/Creatinine Ratio 17 (6-20) Glucose Level 105 mg/dL (70-99) Calcium Level 8.4 mg/dL (8.5-10.1) Total Bilirubin 0.3 mg/dL (0.2-1.0) Aspartate Amino Transf (AST/SGOT) 34 U/L (15-37) Alanine Aminotransferase (ALT/SGPT) 51 U/L (14-59) Alkaline Phosphatase 177 U/L (46-116) Total Protein 5.7 g/dL (6.4-8.2) Albumin 2.4 g/dL (3.4-5.0) Albumin/Globulin Ratio 0.7 (1.0-1.7) Microbiology 03/24/19 Anaerobic/Aerobic Culture, Resulted Pending 03/24/19 Anaerobic Culture Result 1 (MATTHEW), Resulted Pending 03/24/19 Aerobic Culture, Resulted Pending 03/24/19 Aerobic Culture Result 1 (MATTHEW), Resulted Pending 03/24/19 Gram Stain - Final, Resulted 03/24/19 Gram Stain Result 1 (MATTHEW) - Final, Resulted 03/24/19 Gram Stain Result 2 (MATTHEW) - Final, Resulted Medications Current Medications Oxycodone/ Acetaminophen (Percocet 5/325) 1 tab PRN Q4HRS PRN PO PAIN Last administered on 03/26/19at 04:43; Start 03/22/19 at 15:30 Cyclobenzaprine HCl (Flexeril) 10 mg PRN Q6HRS PRN PO MUSCLE SPASMS Last administered on 03/26/19at 04:43; Start 03/22/19 at 15:30 Morphine Sulfate (Morphine Sulfate) 4 mg PRN Q2HR PRN IV PAIN, MOD TO SEVERE L ast administered on 03/24/19at 10:11; Start 03/22/19 at 15:30 Ketorolac Tromethamine (Toradol 15mg Vial) 15 mg PRN Q6HRS PRN IV MILD PAIN Last administered on 03/26/19at 04:38; Start 03/22/19 at 15:30; Stop 03/27/19 at 15:29 Lidocaine (Lidoderm) 1 patch DAILY TD Last administered on 03/26/19at 08:06; Start 03/22/19 at 16:00 Miscellaneous (Lidoderm Patch Removal) 1 ea QHS MC Last administered on 03/25/19at 20:55; Start 03/22/19 at 21:00 Trazodone HCl (Desyrel) 50 mg QHS PO Last administered on 03/25/19at 20:59; Start 03/22/19 at 21:00 Ondansetron HCl (Zofran) 4 mg PRN Q6HRS PRN IV NAUSEA/VOMITING; Start 03/23/19 at 13:00; Stop 03/24/19 at 12:59; Status DC Fentanyl Citrate (Fentanyl 2ml Vial) 25 mcg PRN Q5MIN PRN IV MILD PAIN; Start 03/23/19 at 13:00; Stop 03/24/19 at 12:59; Status DC Fentanyl Citrate (Fentanyl 2ml Vial) 50 mcg PRN Q5MIN PRN IV MODERATE TO SEVERE PAIN; Start 03/23/19 at 13:00; Stop 03/24/19 at 12:59; Status DC Morphine Sulfate (Morphine Sulfate) 1 mg PRN Q10MIN PRN IV SEVERE PAIN; Start 03/23/19 at 13:00; Stop 03/24/19 at 12:59; Status DC Ringer's Solution 1,000 ml @ 30 mls/hr Q24H IV Last administered on 03/23/19at 13:45; Start 03/23/19 at 12:57; Stop 03/24/19 at 00:56; Status DC Hydromorphone HCl (Dilaudid) 0.5 mg PRN Q10MIN PRN IV SEV PAIN, Second choice; Start 03/23/19 at 13:00; Stop 03/24/19 at 12:59; Status DC Prochlorperazine Edisylate (Compazine) 5 mg PACU PRN PRN IV NAUSEA, MRX1; Start 03/23/19 at 13:00; Stop 03/24/19 at 12:59; Status DC Fentanyl (Duragesic 25mcg/ Hr Patch) 1 patch Q3DAYS TD Last administered on 03/26/19at 08:03; Start 03/23/19 at 14:00 Benzocaine (Hurricaine One) 3 spray 1X ONCE MM Last administered on 03/23/19at 14:45; Start 03/23/19 at 13:45; Stop 03/23/19 at 13:50; Status DC Lidocaine HCl (Glydo (Lidocaine) Jelly) 1 gordy 1X ONCE MM ; Start 03/23/19 at 13:45; Stop 03/23/19 at 13:50; Status DC Lidocaine HCl (Viscous Lidocaine) 15 ml 1X ONCE SWSW ; Start 03/23/19 at 13:45; Stop 03/23/19 at 13:50; Status DC Lidocaine HCl (Xylocaine 2% Topical 30gm Tube) 1 gordy 1X ONCE TP Last administered on 03/23/19at 13:45; Start 03/23/19 at 14:00; Stop 03/23/19 at 14:01; Status DC Lidocaine HCl (Viscous Lidocaine) 15 ml STK-MED ONCE .ROUTE ; Start 03/23/19 at 13:51; Stop 03/23/19 at 13:52; Status DC Propofol 20 ml @ As Directed STK-MED ONCE IV ; Start 03/23/19 at 14:44; Stop 03/23/19 at 14:45; Status DC Lidocaine/Sodium Bicarbonate (Buffered Lidocaine 1%) 3 ml STK-MED ONCE .ROUTE ; Start 03/24/19 at 13:21; Stop 03/24/19 at 13:22; Status DC Midazolam HCl (Versed) 2 mg STK-MED ONCE .ROUTE ; Start 03/24/19 at 13:23; Stop 03/24/19 at 13:24; Status DC Fentanyl Citrate (Fentanyl 2ml Vial) 100 mcg STK-MED ONCE .ROUTE ; Start 03/24/19 at 13:23; Stop 03/24/19 at 13:24; Status DC Lidocaine/Sodium Bicarbonate (Buffered Lidocaine 1%) 3 ml 1X ONCE IJ Last administered on 03/24/19at 14:20; Start 03/24/19 at 13:30; Stop 03/24/19 at 13:35; Status DC Midazolam HCl (Versed) 2 mg 1X ONCE IV Last administered on 03/24/19at 14:20; Start 03/24/19 at 13:30; Stop 03/24/19 at 13:35; Status DC Fentanyl Citrate (Fentanyl 2ml Vial) 100 mcg 1X ONCE IV Last administered on 03/24/19at 14:19; Start 03/24/19 at 13:30; Stop 03/24/19 at 13:35; Status DC Metoprolol Tartrate (Lopressor) 25 mg BID PO Last administered on 03/25/19at 22:55; Start 03/24/19 at 21:00 Ceftriaxone Sodium (Rocephin) 1 gm Q24H IVP Last administered on 03/26/19at 09:50; Start 03/25/19 at 10:00 Lactobacillus Rhamnosus (Culturelle) 1 cap BID PO Last administered on 03/26/19at 08:10; Start 03/25/19 at 21:00 Ferrous Sulfate (Feosol) 325 mg BIDWMEALS PO Last administered on 03/26/19at 08:10; Start 03/25/19 at 17:00 Senna/Docusate Sodium (Senna Plus) 2 tab PRN BID PRN PO CONSTIPATION; Start 03/25/19 at 21:00 Polyethylene Glycol (miraLAX PACKET) 17 gm DAILY PO Last administered on at 22:54; Start 03/25/19 at 21:00 Psyllium Hydrophilic Mucilloid (Metamucil Fiber Packet) 1 pkt DAILY PO Last administered on 03/25/19at 22:54; Start 03/25/19 at 21:00 Vancomycin HCl (Vanco Per Pharmacy) 1 each PRN DAILY PRN MC SEE COMMENTS; Start 03/26/19 at 09:15 Vancomycin HCl 1.75 gm/Sodium Chloride 500 ml @ 250 mls/hr 1X ONCE IV Last administered on 03/26/19at 09:52; Start 03/26/19 at 10:00; Stop 03/26/19 at 11:59 Active Scripts Active Reported No Known Medications Prior To Admisstion (Info) Each 1 Each MC DAILY Vitals/I & O Vital Sign - Last 24 Hours 03/25/19 03/25/19 03/25/19 03/25/19 11:00 15:00 16:14 17:15 Temp 97.9 98.1 97.9 98.1 Pulse 98 98 Resp 16 18 B/P (MAP) 84/51 (62) 131/75 (93) Pulse Ox 90 96 96 O2 Delivery Room Air Room Air Room Air O2 Flow Rate 2.0 03/25/19 03/25/19 03/25/19 03/25/19 19:00 20:00 21:02 22:18 Temp 97.4 97.4 Pulse 88 Resp 18 B/P (MAP) 112/59 (76) Pulse Ox 94 94 O2 Delivery Room Air Room Air Room Air Room Air 03/25/19 03/25/19 03/26/19 03/26/19 22:55 23:00 03:00 04:43 Temp 97.9 97.4 97.9 97.4 Pulse 88 88 84 Resp 18 18 B/P (MAP) 112/59 100/59 (73) 104/55 (71) Pulse Ox 94 93 O2 Delivery Room Air Room Air Room Air 03/26/19 03/26/19 03/26/19 03/26/19 05:43 07:00 08:03 08:10 Temp 98.3 98.3 Pulse 82 84 Resp 18 B/P (MAP) 93/55 (68) 106/63 Pulse Ox 96 O2 Delivery Room Air Room Air Room Air 03/26/19 08:14 Pulse 84 B/P (MAP) 106/63 (77) GABRIEL OSORIO MD March 26, 2019 10:21
--- NOTE | 2019-03-26 10:35 | NUR ---
[facility] following for discharge planning. Discussed with RN, Dr. Gillespie and Dr. Coates. Pt's gram stain came back positive, pt getting a PICC line today and will need IV abx at home. Dr. Coates waiting for sensitivities. Dr. Gillespie anticipates pt will be here through the weekend. SW to determine if pt's secondary insurance will cover home infusion. [facility] will continue to follow.
--- NOTE | 2019-03-26 11:10 | NUR ---
[facility]OR[facility] DRSG CLEAN, DRY & INTACT
[2019-03-26 11:34] LABS: BASO % 1 % (0-3); EOS # 0.1 x10^3/uL (0.0-0.7); EOS % 2 % (0-3); HEMATOCRIT 24.3 % (36.0-47.0); LYMPH # 0.6 x10^3/uL (1.0-4.8); LYMPH % 9 % (24-48); MEAN CORPUSCULAR HEMOGLOBIN 28 pg (25-35); MEAN CORPUSCULAR HGB CONC 33 g/dL (31-37); MEAN CORPUSCULAR VOLUME 85 fL (79-100); MONO # 0.8 x10^3/uL (0.0-1.1); MONO % 12 % (0-9); NEUT % 77 % (31-73); PLATELET COUNT 260 x10^3/uL (140-400); RED BLOOD COUNT 2.87 x10^6/uL (3.50-5.40); RED CELL DISTRIBUTION WIDTH 16.1 % (11.5-14.5); WHITE BLOOD COUNT 6.6 x10^3/uL (4.0-11.0)
--- NOTE | 2019-03-26 12:32 | NUR ---
PICC PRE-INSERTION NOTE: Allergies and reactions YES INR 1.0 BUN 12 Cr 0.7 Platelets 260 Blood culture done N/A blood culture results N/A Order Verified YES Consent signed YES Previous PICC placement UNKNOWN Past Medical/Surgical history and current diagnosis reviewed YES Patient Medical /Surgical History Related to PICC line placement Infectious Disease consult Special considerations for PICC line placement None PICC placement indication intermediate card tender antibiotic usage, name of PICC Nurse Shilo Villafana RN Addendum: 03/26/19 at 1315 by DIONICIO VILLAFANA RN Amended: Links added.
--- NOTE | 2019-03-26 13:01 | NUR ---
PICC INSERTION NOTE: Procedure: Following complete explanation of the PICC procedure including the indications, risks, and potential complications, informed consent was obtained. The possibility for infection was discussed along with signs, symptoms, and prevention. All the questions were answered. Written and verbal patient education was provided. Hand hygiene performed. Standardized central line checklist was utilized. The patient was placed in the supine position, the arm was prepped with chlorhexidine and patient draped with maximum sterile barrier. 2 mL 1% lidocaine was infiltrated into the skin to provide local anesthesia. A thorough assessment of right upper extremity completed. Using real-time ultrasound guidance and standardized micro puncture set, the basilic vein was punctured and a peel away sheath was placed using the modified Seldinger technique. A tip location device was used to ensure adequate catheter placement. The catheter was secured using a securement device and an antimicrobial patch was applied directly on the insertion site followed by a transparent dressing. All ports withdraw blood and flush without resistance. Patient tolerated the procedure without apparent complication(s). Single Lumen Power PICC placement successful and uncomplicated. Placement verified by EKG tip confirmation system and/or chest x-ray. Tip located in the CAJ/SVC. Complications: None Catheter trimmed at 43cm with 0cm visible.
[2019-03-26] MEDS: VANCOMYCIN PER PHARMACY MC PRN (14:33)
--- NOTE | 2019-03-26 14:34 | NUR ---
Pharmacy Vancomycin Dosing Note S:Consulted to monitor and dose vancomycin started 03/26/19. O:RELL SPARKS is a 73 year old F with DISCITIS . Height: 5 feet, 4 inches Weight: 70.863680 kg [place] Body Weight: 54.70 Adjusted Body Weight: 60.82 Dosing Weight: Actual Other Antibiotics: ROCEPHIN LABS: Last BUN: 12 Last Creatinine: 0.7 Creatinine Clearance: 50 mL/min Last WBC: 6.6 Last Procalcitonin: Tmax (past 24 hours): 98.6 Microbiology: 03/24; Back biopsy: few g+c in pairs, chains, and clusters I/O: -/4 voids Drug Levels: Last level: on at Last dose given 03/26/19 at 0952 Vancomycin Dosing: Loading Dose: 1750 mg x1 Dosing Weight: Actual Target Trough: 15-20 A: Based on: Body weight and renal function P: 1. After loading dose, start Vancomycin 1000 mg IV q12h 2. Follow up Trough level on 03/27/19 at 2130 3. Pharmacy will continue to monitor, follow and adjust therapy as needed. ABDULAZIZ MATA [facility], 03/26/19 [id number]
--- NOTE | 2019-03-26 15:35 | NUR ---
[facility] met with pt and pt's daughter at bedside, they would like [facility], and are wondering about home infusion vs outpatient. As we do not know the IV abx pt will need upon discharge, [facility] faxed face sheet and abx pt is currently on, to [facility] to determine benefits through pt's secondary insurance. [facility] faxed referral to [facility]. Pt will be here through the weekend. [facility] will continue to follow. RN notified.
--- NOTE | 2019-03-26 19:46 | NUR ---
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
[2019-03-26] MEDS: traZODone 50 MG TABLET. PO SCH (20:39)
[2019-03-26] MEDS: PATCH REMOVAL. MC SCH (21:00)
[2019-03-26] MEDS: VANCOMYCIN 1 GM in IV NORMAL SALINE 250ML 250 ML IV SCH (22:11)
[2019-03-27] MEDS: oxyCODONE/APAP 5/325 1 TAB TABLET PO PRN ×4 (00:39→19:21)
[2019-03-27] MEDS: CYCLOBENZAPRINE 10 MG TABLET. PO PRN ×3 (00:39→17:11)
[2019-03-27] MEDS: MORPHINE SULFATE 4 MG/ML VIAL. IV PRN (02:37)
[2019-03-27] MEDS: KETOROLAC 15 MG/ML VIAL. IV PRN ×2 (02:46→09:02)
[2019-03-27 03:09] VITALS: BP 117/72
[2019-03-27 07:00] VITALS: BP 146/76
[2019-03-27 07:01] LABS: CALCIUM 8.1 mg/dL (8.5-10.1); CREATININE 0.7 mg/dL (0.6-1.0); GFR 82.5; POTASSIUM 4.7 mmol/L (3.5-5.1)
--- NOTE | 2019-03-27 08:06 | PDOC ---
PROGRESS NOTES Chief Complaint Chief Complaint Acute back pain, plain film showed possible compression fx at T12, MRI shows T10-11 lucency in disc, physiatry consulted - s/p IR biopsy for discitis, sed rate and crp highly elevated, consult ID Heart murmur - mitral valve flair leaflet with regurgitation, consulted cardiology Anemia, hgb 8.5, iron level low, TIBC low as chronic disease, b12 WNL, retic WNL, possibly hemolyzing from flail valve or possibly with infection of spine UTI - 100K GNR from [place] culture, will start empiric antibiotics, vanc and rocephin Ecoli UTI POA 03/20 at [place] - Mild confusion - better murmur -MV regurg with flail post leaflet - no peripheral stigmata and no infections or abx Back pain T 10 -11 endplate edema s/p Aspiration 03/24 - GPC pairs/chains/clusters- SEPSIS - POA, likely 2/2 infectious discitis ID Following 45 min pt exam, chart review., > 50% of time spent with exam, chart review, pt care coordination History of Present Illness History of Present Illness She had been admitted to [facility] 1.5 days prior for acute back pain, she was mowing her yard, did well, then went to bed, and the next day could not get out of bed. Thoracic MRI shows T10-11 disc inflammatory process and endplate as well. 03/23: She was noted with anemia, echo reviewed showing mitral regurgitation, MRI - T10-11 discitis? and ADALBERTO mitral regurgitation with flail leaflet?. ESR and CRP elevated 03/24: To IR for disc biopsy and culture today. ID consulted. Acute pain to lower spinal area, with pain that is worse with movement, and has crampy tendency. Urine from [place] e coli, sensitive. Back biopsy shows GPC. Hb down to 7.7 today. She is feeling depressed and can't sleep Questions answered to patient and daughter. Plan: Percocet increased. Add cymbalta and gabapentin to her regimen. Type and screen tomorrow, will transfuse if Hb < 7 Vitals Vitals Vital Signs Date Time Temp Pulse Resp B/P (MAP) Pulse Ox O2 Delivery O2 Flow Rate FiO2 03/27/19 06:48 20 Room Air 03/27/19 03:09 98.4 105 117/72 (87) 97 98.4 Physical Exam Physical Exam CONSTITUTIONAL: She is cooperative. She is in MILD acute distress. She is sitting in a chair of bed. HEENT: Pupils equal and reactive. She has normal conjunctivae. Oral cavity, pharynx is clear. No signs of any petechial hemorrhages. NECK: Supple. No JVD. LUNGS: Clear to auscultation. HEART: S1 and S2 with a 2/6 murmur. ABDOMEN: Soft, nontender and nondistended with positive bowel sounds. Mild distension EXTREMITIES: Without clubbing, cyanosis or gross edema. She has no splinter hemorrhages in her fingers. SKIN: Warm to touch without signs of rash. NEUROLOGICAL: She is nonfocal. PSYCHIATRIC: Affect is appropriate and pleasant. General: Alert, Oriented X3, Cooperative, No acute distress Heart: Regular rate (SR), Normal S1 Lungs: Clear Abdomen: Normal bowel sounds, Soft, No tenderness Extremities: No clubbing, No cyanosis, Other (1+bilateral LE pitting edema) Skin: No breakdown, No significant lesion Labs LABS Laboratory Tests Test 03/27/19 06:20 Sodium Level 136 mmol/L (136-145) Potassium Level 4.7 mmol/L (3.5-5.1) Chloride Level 101 mmol/L (98-107) Carbon Dioxide Level 30 mmol/L (21-32) Anion Gap 5 (6-14) Blood Urea Nitrogen 10 mg/dL (7-20) Creatinine 0.7 mg/dL (0.6-1.0) Estimated GFR (Cockcroft-Gault) 82.5 Glucose Level 96 mg/dL (70-99) Calcium Level 8.1 mg/dL (8.5-10.1) Comment Review of Relevant I have reviewed the following items tolu (where applicable) has been applied. Labs Laboratory Tests Test 03/25/19 09:25 03/26/19 05:20 03/27/19 06:20 White Blood Count 9.8 x10^3/uL (4.0-11.0) 6.6 x10^3/uL (4.0-11.0) Red Blood Count 3.40 x10^6/uL (3.50-5.40) 2.87 x10^6/uL (3.50-5.40) Hemoglobin 9.3 g/dL (12.0-15.5) 8.0 g/dL (12.0-15.5) Hematocrit 28.8 % (36.0-47.0) 24.3 % (36.0-47.0) Mean Corpuscular Volume 85 fL (79-100) 85 fL (79-100) Mean Corpuscular Hemoglobin 27 pg (25-35) 28 pg (25-35) Mean Corpuscular Hemoglobin Concent 32 g/dL (31-37) 33 g/dL (31-37) Red Cell Distribution Width 15.5 % (11.5-14.5) 16.1 % (11.5-14.5) Platelet Count 291 x10^3/uL (140-400) 260 x10^3/uL (140-400) Neutrophils (%) (Auto) 87 % (31-73) 77 % (31-73) Lymphocytes (%) (Auto) 4 % (24-48) 9 % (24-48) Monocytes (%) (Auto) 7 % (0-9) 12 % (0-9) Eosinophils (%) (Auto) 1 % (0-3) 2 % (0-3) Basophils (%) (Auto) 0 % (0-3) 1 % (0-3) Neutrophils # (Auto) 8.6 x10^3uL (1.8-7.7) 5.0 x10^3uL (1.8-7.7) Lymphocytes # (Auto) 0.4 x10^3/uL (1.0-4.8) 0.6 x10^3/uL (1.0-4.8) Monocytes # (Auto) 0.7 x10^3/uL (0.0-1.1) 0.8 x10^3/uL (0.0-1.1) Eosinophils # (Auto) 0.1 x10^3/uL (0.0-0.7) 0.1 x10^3/uL (0.0-0.7) Basophils # (Auto) 0.0 x10^3/uL (0.0-0.2) 0.0 x10^3/uL (0.0-0.2) Segmented Neutrophils % 87 % (35-66) Band Neutrophils % 5 % (0-9) Lymphocytes % 2 % (24-48) Monocytes % 5 % (0-10) Eosinophils % 1 % (0-5) Platelet Estimate Adequate (ADEQUATE) Sodium Level 130 mmol/L (136-145) 130 mmol/L (136-145) 136 mmol/L (136-145) Potassium Level 4.8 mmol/L (3.5-5.1) 4.5 mmol/L (3.5-5.1) 4.7 mmol/L (3.5-5.1) Chloride Level 93 mmol/L (98-107) 95 mmol/L (98-107) 101 mmol/L (98-107) Carbon Dioxide Level 28 mmol/L (21-32) 29 mmol/L (21-32) 30 mmol/L (21-32) Anion Gap 9 (6-14) 6 (6-14) 5 (6-14) Blood Urea Nitrogen 11 mg/dL (7-20) 12 mg/dL (7-20) 10 mg/dL (7-20) Creatinine 0.8 mg/dL (0.6-1.0) 0.7 mg/dL (0.6-1.0) 0.7 mg/dL (0.6-1.0) Estimated GFR (Cockcroft-Gault) 70.7 82.5 82.5 BUN/Creatinine Ratio 14 (6-20) 17 (6-20) Glucose Level 123 mg/dL (70-99) 105 mg/dL (70-99) 96 mg/dL (70-99) Calcium Level 9.0 mg/dL (8.5-10.1) 8.4 mg/dL (8.5-10.1) 8.1 mg/dL (8.5-10.1) Total Bilirubin 0.5 mg/dL (0.2-1.0) 0.3 mg/dL (0.2-1.0) Aspartate Amino Transf (AST/SGOT) 37 U/L (15-37) 34 U/L (15-37) Alanine Aminotransferase (ALT/SGPT) 64 U/L (14-59) 51 U/L (14-59) Alkaline Phosphatase 203 U/L (46-116) 177 U/L (46-116) Total Protein 6.2 g/dL (6.4-8.2) 5.7 g/dL (6.4-8.2) Albumin 2.7 g/dL (3.4-5.0) 2.4 g/dL (3.4-5.0) Albumin/Globulin Ratio 0.8 (1.0-1.7) 0.7 (1.0-1.7) Laboratory Tests Test 03/27/19 06:20 Sodium Level 136 mmol/L (136-145) Potassium Level 4.7 mmol/L (3.5-5.1) Chloride Level 101 mmol/L (98-107) Carbon Dioxide Level 30 mmol/L (21-32) Anion Gap 5 (6-14) Blood Urea Nitrogen 10 mg/dL (7-20) Creatinine 0.7 mg/dL (0.6-1.0) Estimated GFR (Cockcroft-Gault) 82.5 Glucose Level 96 mg/dL (70-99) Calcium Level 8.1 mg/dL (8.5-10.1) Microbiology 03/24/19 AFB Specimen Processing Tissue - Final, Resulted 03/24/19 Acid Fast Bacilli Culture, Resulted Pending 03/24/19 Gram Stain - Final, Resulted 03/24/19 Fungal Culture, Resulted Pending 03/24/19 Fungal Culture Result 1, Resulted Pending Medications Current Medications Oxycodone/ Acetaminophen (Percocet 5/325) 1 tab PRN Q4HRS PRN PO PAIN Last administered on 03/27/19 06:48; Start 03/22/19 at 15:30 Cyclobenzaprine HCl (Flexeril) 10 mg PRN Q6HRS PRN PO MUSCLE SPASMS Last administered on 03/27/19at 06:47; Start 03/22/19 at 15:30 Morphine Sulfate (Morphine Sulfate) 4 mg PRN Q2HR PRN IV PAIN, MOD TO SEVERE Last administered on 03/27/19at 02:37; Start 03/22/19 at 15:30 Ketorolac Tromethamine (Toradol 15mg Vial) 15 mg PRN Q6HRS PRN IV MILD PAIN Last administered on 03/27/19at 02:46; Start 03/22/19 at 15:30; Stop 03/27/19 at 15:29 Lidocaine (Lidoderm) 1 patch DAILY TD Last administered on 03/26/19at 08:06; Start 03/22/19 at 16:00 Miscellaneous (Lidoderm Patch Removal) 1 ea QHS MC Last administered on 03/26/19at 21:00; Start 03/22/19 at 21:00 Trazodone HCl (Desyrel) 50 mg QHS PO Last administered on 03/26/19at 20:39; Start 03/22/19 at 21:00 Ondansetron HCl (Zofran) 4 mg PRN Q6HRS PRN IV NAUSEA/VOMITING; Start 03/23/19 at 13:00; Stop 03/24/19 at 12:59; Status DC Fentanyl Citrate (Fentanyl 2ml Vial) 25 mcg PRN Q5MIN PRN IV MILD PAIN; Start 03/23/19 at 13:00; Stop 03/24/19 at 12:59; Status DC Fentanyl Citrate (Fentanyl 2ml Vial) 50 mcg PRN Q5MIN PRN IV MODERATE TO SEVERE PAIN; Start 03/23/19 at 13:00; Stop 03/24/19 at 12:59; Status DC Morphine Sulfate (Morphine Sulfate) 1 mg PRN Q10MIN PRN IV SEVERE PAIN; Start 03/23/19 at 13:00; Stop 03/24/19 at 12:59; Status DC Ringer's Solution 1,000 ml @ 30 mls/hr Q24H IV Last administered on 03/23/19at 13:45; Start 03/23/19 at 12:57; Stop 03/24/19 at 00:56; Status DC Hydromorphone HCl (Dilaudid) 0.5 mg PRN Q10MIN PRN IV SEV PAIN, Second choice; Start 03/23/19 at 13:00; Stop 03/24/19 at 12:59; Status DC Prochlorperazine Edisylate (Compazine) 5 mg PACU PRN PRN IV NAUSEA, MRX1; Start 03/23/19 at 13:00; Stop 03/24/19 at 12:59; Status DC Fentanyl (Duragesic 25mcg/ Hr Patch) 1 patch Q3DAYS TD Last administered on 03/26/19at 08:03; Start 03/23/19 at 14:00 Benzocaine (Hurricaine One) 3 spray 1X ONCE MM Last administered on 03/23/19at 14:45; Start 03/23/19 at 13:45; Stop 03/23/19 at 13:50; Status DC Lidocaine HCl (Glydo (Lidocaine) Jelly) 1 gordy 1X ONCE MM ; Start 03/23/19 at 13:45; Stop 03/23/19 at 13:50; Status DC Lidocaine HCl (Viscous Lidocaine) 15 ml 1X ONCE SWSW ; Start 03/23/19 at 13:45; Stop 03/23/19 at 13:50; Status DC Lidocaine HCl (Xylocaine 2% Topical 30gm Tube) 1 gordy 1X ONCE TP Last administered on 03/23/19at 13:45; Start 03/23/19 at 14:00; Stop 03/23/19 at 14:01; Status DC Lidocaine HCl (Viscous Lidocaine) 15 ml STK-MED ONCE .ROUTE ; Start 03/23/19 at 13:51; Stop 03/23/19 at 13:52; Status DC Propofol 20 ml @ As Directed STK-MED ONCE IV ; Start 03/23/19 at 14:44; Stop 03/23/19 at 14:45; Status DC Lidocaine/Sodium Bicarbonate (Buffered Lidocaine 1%) 3 ml STK-MED ONCE .ROUTE ; Start 03/24/19 at 13:21; Stop 03/24/19 at 13:22; Status DC Midazolam HCl (Versed) 2 mg STK-MED ONCE .ROUTE ; Start 03/24/19 at 13:23; Stop 03/24/19 at 13:24; Status DC Fentanyl Citrate (Fentanyl 2ml Vial) 100 mcg STK-MED ONCE .ROUTE ; Start 03/24/19 at 13:23; Stop 03/24/19 at 13:24; Status DC Lidocaine/Sodium Bicarbonate (Buffered Lidocaine 1%) 3 ml 1X ONCE IJ Last administered on 03/24/19at 14:20; Start 03/24/19 at 13:30; Stop 03/24/19 at 13:35; Status DC Midazolam HCl (Versed) 2 mg 1X ONCE IV Last administered on 03/24/19at 14:20; Start 03/24/19 at 13:30; Stop 03/24/19 at 13:35; Status DC Fentanyl Citrate (Fentanyl 2ml Vial) 100 mcg 1X ONCE IV Last administered on 03/24/19at 14:19; Start 03/24/19 at 13:30; Stop 03/24/19 at 13:35; Status DC Metoprolol Tartrate (Lopressor) 25 mg BID PO Last administered on 03/25/19 22:55; Start 03/24/19 at 21:00 Ceftriaxone Sodium (Rocephin) 1 gm Q24H IVP Last administered on 03/26/19at 09:50; Start 03/25/19 at 10:00 Lactobacillus Rhamnosus (Culturelle) 1 cap BID PO Last administered on 03/26at 20:39; Start 03/25/19 at 21:00 Ferrous Sulfate (Feosol) 325 mg BIDWMEALS PO Last administered on 03/26/19 16:55; Start 03/25/19 at 17:00 Senna/Docusate Sodium (Senna Plus) 2 tab PRN BID PRN PO CONSTIPATION; Start 03/25/19 at 21:00 Polyethylene Glycol (miraLAX PACKET) 17 gm DAILY PO Last administered on 03/25/19at 22:54; Start 03/25/19 at 21:00 Psyllium Hydrophilic Mucilloid (Metamucil Fiber Packet) 1 pkt DAILY PO Last administered on 03/25/19at 22:54; Start 03/25/19 at 21:00 Vancomycin HCl (Vanco Per Pharmacy) 1 each PRN DAILY PRN MC SEE COMMENTS Last administered on 03/26/19at 14:33; Start 03/26/19 at 09:15 Vancomycin HCl 1.75 gm/Sodium Chloride 500 ml @ 250 mls/hr 1X ONCE IV Last administered on 03/26/19at 09:52; Start 03/26/19 at 10:00; Stop 03/26/19 at 11:59; Status DC Vancomycin HCl 1 gm/Sodium Chloride 250 ml @ 250 mls/hr Q12H IV Last administered on 03/26/19at 22:11; Start 03/26/19 at 22:00 Vancomycin HCl (Vancomycin Trough Level) 1 each 1X ONCE MC ; Start 03/27/19 at 21:30; Stop 03/27/19 at 21:31 Active Scripts Active Reported No Known Medications Prior To Admisstion (Info) Each 1 Each MC DAILY Vitals/I & O Vital Sign - Last 24 Hours 03/26/19 03/26/19 03/26/19 03/26/19 08:10 08:14 11:00 14:56 Temp 98.6 98.6 Pulse 84 84 82 Resp 18 B/P (MAP) 106/63 106/63 (77) 109/65 (80) Pulse Ox 97 O2 Delivery Room Air Room Air 03/26/19 03/26/19 03/26/19 03/26/19 15:00 19:30 19:45 20:45 Temp 98.4 98.3 98.4 98.3 Pulse 91 90 Resp 18 20 20 B/P (MAP) 118/74 (89) 136/57 (83) Pulse Ox 97 99 O2 Delivery Room Air Room Air Room Air Room Air 03/26/19 03/27/19 03/27/19 03/27/19 22:19 00:39 01:39 02:37 Temp 97.8 97.8 Pulse 97 Resp 20 20 20 20 B/P (MAP) 112/89 (97) Pulse Ox 97 O2 Delivery Room Air Room Air Room Air 03/27/19 03/27/19 03/27/19 03:07 03:09 06:48 Temp 98.4 98.4 Pulse 105 Resp 20 18 20 B/P (MAP) 117/72 (87) Pulse Ox 97 O2 Delivery Room Air Room Air Room Air Intake and Output 03/26/19 03/26/19 03/27/19 15:00 23:00 07:00 Intake Total 500 ml 240 ml 730 ml Balance 500 ml 240 ml 730 ml BRIAN SALAS MD March 27, 2019 08:06
[2019-03-27 08:21] LABS: BASO % 1 % (0-3); EOS # 0.1 x10^3/uL (0.0-0.7); EOS % 3 % (0-3); HEMATOCRIT 23.2 % (36.0-47.0); HEMOGLOBIN 7.7 g/dL (12.0-15.5); LYMPH # 0.6 x10^3/uL (1.0-4.8); LYMPH % 12 % (24-48); MEAN CORPUSCULAR HEMOGLOBIN 28 pg (25-35); MEAN CORPUSCULAR HGB CONC 33 g/dL (31-37); MEAN CORPUSCULAR VOLUME 85 fL (79-100); MONO # 0.6 x10^3/uL (0.0-1.1); MONO % 12 % (0-9); NEUT # 3.6 x10^3uL (1.8-7.7); NEUT % 73 % (31-73); PLATELET COUNT 277 x10^3/uL (140-400); RED BLOOD COUNT 2.73 x10^6/uL (3.50-5.40); RED CELL DISTRIBUTION WIDTH 15.1 % (11.5-14.5)
[2019-03-27] MEDS: FERROUS SULFATE 325 MG TABLET. PO SCH ×2 (08:59→17:22)
[2019-03-27] MEDS: LACTOBACILLUS RHAMNOSUS GG 1 CAPSULE. PO SCH ×2 (08:59→20:48)
[2019-03-27] MEDS: METOPROLOL TART IMMED RELEASE 25 MG TABLET. PO SCH ×2 (09:00→20:49)
[2019-03-27] MEDS: POLYETHYLENE GLYCOL 3350 17 GM PACKET. PO SCH (09:00)
[2019-03-27] MEDS: PSYLLIUM HUSK (SUGAR FREE) 1 PKT PACKET PO SCH (09:00)
[2019-03-27] MEDS: LIDOCAINE (700MG/PATCH) PATCH. TD SCH (09:16)
--- NOTE | 2019-03-27 10:47 | PDOC ---
PROGRESS NOTES Subjective Subjective She admits continued back pain,mainly with movement and percocet 5/325 mg is not providing enough pain relief at that time and also at night. Objective Objective Vital Signs Date Time Temp Pulse Resp B/P (MAP) Pulse Ox O2 Delivery O2 Flow Rate FiO2 03/27/19 09:00 98 146/76 03/27/19 08:00 Room Air 03/27/19 07:00 98.0 18 93 98.0 03/25/19 17:15 2.0 Intake and Output 03/27/19 07:00 Intake Total 1470 ml Balance 1470 ml Intake Oral 1220 ml IV Total 250 ml # Voids 2 Physical Exam Physical Exam She is alert,supine in bed and continues with tenderness to palaption over lower thoracic paraspinal muscles and painfully limited thoracic spine ROM. Plan Plan of Care To increase dose of percocet. Comment Review of Relevant I have reviewed the following items tolu (where applicable) has been applied. Labs Laboratory Tests Test 03/26/19 05:20 03/27/19 06:20 White Blood Count 6.6 x10^3/uL (4.0-11.0) 5.0 x10^3/uL (4.0-11.0) Red Blood Count 2.87 x10^6/uL (3.50-5.40) 2.73 x10^6/uL (3.50-5.40) Hemoglobin 8.0 g/dL (12.0-15.5) 7.7 g/dL (12.0-15.5) Hematocrit 24.3 % (36.0-47.0) 23.2 % (36.0-47.0) Mean Corpuscular Volume 85 fL (79-100) 85 fL (79-100) Mean Corpuscular Hemoglobin 28 pg (25-35) 28 pg (25-35) Mean Corpuscular Hemoglobin Concent 33 g/dL (31-37) 33 g/dL (31-37) Red Cell Distribution Width 16.1 % (11.5-14.5) 15.1 % (11.5-14.5) Platelet Count 260 x10^3/uL (140-400) 277 x10^3/uL (140-400) Neutrophils (%) (Auto) 77 % (31-73) 73 % (31-73) Lymphocytes (%) (Auto) 9 % (24-48) 12 % (24-48) Monocytes (%) (Auto) 12 % (0-9) 12 % (0-9) Eosinophils (%) (Auto) 2 % (0-3) 3 % (0-3) Basophils (%) (Auto) 1 % (0-3) 1 % (0-3) Neutrophils # (Auto) 5.0 x10^3uL (1.8-7.7) 3.6 x10^3uL (1.8-7.7) Lymphocytes # (Auto) 0.6 x10^3/uL (1.0-4.8) 0.6 x10^3/uL (1.0-4.8) Monocytes # (Auto) 0.8 x10^3/uL (0.0-1.1) 0.6 x10^3/uL (0.0-1.1) Eosinophils # (Auto) 0.1 x10^3/uL (0.0-0.7) 0.1 x10^3/uL (0.0-0.7) Basophils # (Auto) 0.0 x10^3/uL (0.0-0.2) 0.0 x10^3/uL (0.0-0.2) Sodium Level 130 mmol/L (136-145) 136 mmol/L (136-145) Potassium Level 4.5 mmol/L (3.5-5.1) 4.7 mmol/L (3.5-5.1) Chloride Level 95 mmol/L (98-107) 101 mmol/L (98-107) Carbon Dioxide Level 29 mmol/L (21-32) 30 mmol/L (21-32) Anion Gap 6 (6-14) 5 (6-14) Blood Urea Nitrogen 12 mg/dL (7-20) 10 mg/dL (7-20) Creatinine 0.7 mg/dL (0.6-1.0) 0.7 mg/dL (0.6-1.0) Estimated GFR (Cockcroft-Gault) 82.5 82.5 BUN/Creatinine Ratio 17 (6-20) Glucose Level 105 mg/dL (70-99) 96 mg/dL (70-99) Calcium Level 8.4 mg/dL (8.5-10.1) 8.1 mg/dL (8.5-10.1) Total Bilirubin 0.3 mg/dL (0.2-1.0) Aspartate Amino Transf (AST/SGOT) 34 U/L (15-37) Alanine Aminotransferase (ALT/SGPT) 51 U/L (14-59) Alkaline Phosphatase 177 U/L (46-116) Total Protein 5.7 g/dL (6.4-8.2) Albumin 2.4 g/dL (3.4-5.0) Albumin/Globulin Ratio 0.7 (1.0-1.7) Laboratory Tests Test 03/27/19 06:20 White Blood Count 5.0 x10^3/uL (4.0-11.0) Red Blood Count 2.73 x10^6/uL (3.50-5.40) Hemoglobin 7.7 g/dL (12.0-15.5) Hematocrit 23.2 % (36.0-47.0) Mean Corpuscular Volume 85 fL (79-100) Mean Corpuscular Hemoglobin 28 pg (25-35) Mean Corpuscular Hemoglobin Concent 33 g/dL (31-37) Red Cell Distribution Width 15.1 % (11.5-14.5) Platelet Count 277 x10^3/uL (140-400) Neutrophils (%) (Auto) 73 % (31-73) Lymphocytes (%) (Auto) 12 % (24-48) Monocytes (%) (Auto) 12 % (0-9) Eosinophils (%) (Auto) 3 % (0-3) Basophils (%) (Auto) 1 % (0-3) Neutrophils # (Auto) 3.6 x10^3uL (1.8-7.7) Lymphocytes # (Auto) 0.6 x10^3/uL (1.0-4.8) Monocytes # (Auto) 0.6 x10^3/uL (0.0-1.1) Eosinophils # (Auto) 0.1 x10^3/uL (0.0-0.7) Basophils # (Auto) 0.0 x10^3/uL (0.0-0.2) Sodium Level 136 mmol/L (136-145) Potassium Level 4.7 mmol/L (3.5-5.1) Chloride Level 101 mmol/L (98-107) Carbon Dioxide Level 30 mmol/L (21-32) Anion Gap 5 (6-14) Blood Urea Nitrogen 10 mg/dL (7-20) Creatinine 0.7 mg/dL (0.6-1.0) Estimated GFR (Cockcroft-Gault) 82.5 Glucose Level 96 mg/dL (70-99) Calcium Level 8.1 mg/dL (8.5-10.1) Microbiology 03/24/19 AFB Specimen Processing Tissue - Final, Resulted 03/24/19 Acid Fast Bacilli Culture, Resulted Pending 03/24/19 Gram Stain - Final, Resulted 03/24/19 Fungal Culture, Resulted Pending 03/24/19 Fungal Culture Result 1, Resulted Pending Medications Current Medications Oxycodone/ Acetaminophen (Percocet 5/325) 1 tab PRN Q4HRS PRN PO PAIN Last administered on 03/27/19 06:48; Start 03/22/19 at 15:30 Cyclobenzaprine HCl (Flexeril) 10 mg PRN Q6HRS PRN PO MUSCLE SPASMS Last administered on 03/27/19 06:47; Start 03/22/19 at 15:30 Morphine Sulfate (Morphine Sulfate) 4 mg PRN Q2HR PRN IV PAIN, MOD TO SEVERE Last administered on 03/27/19 02:37; Start 03/22/19 at 15:30 Ketorolac Tromethamine (Toradol 15mg Vial) 15 mg PRN Q6HRS PRN IV MILD PAIN Last administered on 03/27/19 09:02; Start 03/22/19 at 15:30; Stop 03/27/19 at 15:29 Lidocaine (Lidoderm) 1 patch DAILY TD Last administered on 03/27/19 09:16; Start 03/22/19 at 16:00 Miscellaneous (Lidoderm Patch Removal) 1 ea QHS MC Last administered on 03/26/19 21:00; Start 03/22/19 at 21:00 Trazodone HCl (Desyrel) 50 mg QHS PO Last administered on 03/26/19 20:39; Start 03/22/19 at 21:00 Ondansetron HCl (Zofran) 4 mg PRN Q6HRS PRN IV NAUSEA/VOMITING; Start 03/23/19 at 13:00; Stop 03/24/19 at 12:59; Status DC Fentanyl Citrate (Fentanyl 2ml Vial) 25 mcg PRN Q5MIN PRN IV MILD PAIN; Start 03/23/19 at 13:00; Stop 03/24/19 at 12:59; Status DC Fentanyl Citrate (Fentanyl 2ml Vial) 50 mcg PRN Q5MIN PRN IV MODERATE TO SEVERE PAIN; Start 03/23/19 at 13:00; Stop 03/24/19 at 12:59; Status DC Morphine Sulfate (Morphine Sulfate) 1 mg PRN Q10MIN PRN IV SEVERE PAIN; Start 03/23/19 at 13:00; Stop 03/24/19 at 12:59; Status DC Ringer's Solution 1,000 ml @ 30 mls/hr Q24H IV Last administered on 03/23/19at 13:45; Start 03/23/19 at 12:57; Stop 03/24/19 at 00:56; Status DC Hydromorphone HCl (Dilaudid) 0.5 mg PRN Q10MIN PRN IV SEV PAIN, Second choice; Start 03/23/19 at 13:00; Stop 03/24/19 at 12:59; Status DC Prochlorperazine Edisylate (Compazine) 5 mg PACU PRN PRN IV NAUSEA, MRX1; Start 03/23/19 at 13:00; Stop 03/24/19 at 12:59; Status DC Fentanyl (Duragesic 25mcg/ Hr Patch) 1 patch Q3DAYS TD Last administered on 03/26/19at 08:03; Start 03/23/19 at 14:00 Benzocaine (Hurricaine One) 3 spray 1X ONCE MM Last administered on 03/23/19at 14:45; Start 03/23/19 at 13:45; Stop 03/23/19 at 13:50; Status DC Lidocaine HCl (Glydo (Lidocaine) Jelly) 1 gordy 1X ONCE MM ; Start 03/23/19 at 13:45; Stop 03/23/19 at 13:50; Status DC Lidocaine HCl (Viscous Lidocaine) 15 ml 1X ONCE SWSW ; Start 03/23/19 at 13:45; Stop 03/23/19 at 13:50; Status DC Lidocaine HCl (Xylocaine 2% Topical 30gm Tube) 1 gordy 1X ONCE TP Last administered on 03/23/19at 13:45; Start 03/23/19 at 14:00; Stop 03/23/19 at 14:01; Status DC Lidocaine HCl (Viscous Lidocaine) 15 ml STK-MED ONCE .ROUTE ; Start 03/23/19 at 13:51; Stop 03/23/19 at 13:52; Status DC Propofol 20 ml @ As Directed STK-MED ONCE IV ; Start 03/23/19 at 14:44; Stop 03/23/19 at 14:45; Status DC Lidocaine/Sodium Bicarbonate (Buffered Lidocaine 1%) 3 ml STK-MED ONCE .ROUTE ; Start 03/24/19 at 13:21; Stop 03/24/19 at 13:22; Status DC Midazolam HCl (Versed) 2 mg STK-MED ONCE .ROUTE ; Start 03/24/19 at 13:23; Stop 03/24/19 at 13:24; Status DC Fentanyl Citrate (Fentanyl 2ml Vial) 100 mcg STK-MED ONCE .ROUTE ; Start 03/24/19 at 13:23; Stop 03/24/19 at 13:24; Status DC Lidocaine/Sodium Bicarbonate (Buffered Lidocaine 1%) 3 ml 1X ONCE IJ Last administered on 03/24/19at 14:20; Start 03/24/19 at 13:30; Stop 03/24/19 at 13:35; Status DC Midazolam HCl (Versed) 2 mg 1X ONCE IV Last administered on 03/24/19at 14:20; Start 03/24/19 at 13:30; Stop 03/24/19 at 13:35; Status DC Fentanyl Citrate (Fentanyl 2ml Vial) 100 mcg 1X ONCE IV Last administered on 03/24/19at 14:19; Start 03/24/19 at 13:30; Stop 03/24/19 at 13:35; Status DC Metoprolol Tartrate (Lopressor) 25 mg BID PO Last administered on 03/25/19at 22:55; Start 03/24/19 at 21:00 Ceftriaxone Sodium (Rocephin) 1 gm Q24H IVP Last administered on 03/26/19at 09:50; Start 03/25/19 at 10:00 Lactobacillus Rhamnosus (Culturelle) 1 cap BID PO Last administered on 03/27/19at 08:59; Start 03/25/19 at 21:00 Ferrous Sulfate (Feosol) 325 mg BIDWMEALS PO Last administered on 03/27/19at 08:59; Start 03/25/19 at 17:00 Senna/Docusate Sodium (Senna Plus) 2 tab PRN BID PRN PO CONSTIPATION; Start 03/25/19 at 21:00 Polyethylene Glycol (miraLAX PACKET) 17 gm DAILY PO Last administered on 03/25/19at 22:54; Start 03/25/19 at 21:00 Psyllium Hydrophilic Mucilloid (Metamucil Fiber Packet) 1 pkt DAILY PO Last administered on 03/25/19at 22:54; Start 03/25/19 at 21:00 Vancomycin HCl (Vanco Per Pharmacy) 1 each PRN DAILY PRN MC SEE COMMENTS Last administered on 03/26/19at 14:33; Start 03/26/19 at 09:15 Vancomycin HCl 1.75 gm/Sodium Chloride 500 ml @ 250 mls/hr 1X ONCE IV Last administered on 03/26/19at 09:52; Start 03/26/19 at 10:00; Stop 03/26/19 at 11:59; Status DC Vancomycin HCl 1 gm/Sodium Chloride 250 ml @ 250 mls/hr Q12H IV Last administered on 03/26/19at 22:11; Start 03/26/19 at 22:00 Vancomycin HCl (Vancomycin Trough Level) 1 each 1X ONCE MC ; Start 03/27/19 at 21:30; Stop 03/27/19 at 21:31 Active Scripts Active Reported No Known Medications Prior To Admisstion (Info) Each 1 Each MC DAILY Vitals/I & O Vital Sign - Last 24 Hours 03/26/19 03/26/19 03/26/19 03/26/19 11:00 14:56 15:00 19:30 Temp 98.6 98.4 98.3 98.6 98.4 98.3 Pulse 82 91 90 Resp 18 18 20 B/P (MAP) 109/65 (80) 118/74 (89) 136/57 (83) Pulse Ox 97 97 99 O2 Delivery Room Air Room Air Room Air Room Air 03/26/19 03/26/19 03/27/19 03/27/19 19:45 22:19 00:39 01:39 Temp 97.8 97.8 Pulse 97 Resp 20 20 20 20 B/P (MAP) 112/89 (97) Pulse Ox 97 O2 Delivery Room Air Room Air Room Air 03/27/19 03/27/19 03/27/19 03/27/19 02:37 03:07 03:09 06:48 Temp 98.4 98.4 Pulse 105 Resp 20 20 18 20 B/P (MAP) 117/72 (87) Pulse Ox 97 O2 Delivery Room Air Room Air Room Air Room Air 03/27/19 03/27/19 03/27/19 07:00 08:00 09:00 Temp 98.0 98.0 Pulse 98 98 Resp 18 B/P (MAP) 146/76 (99) 146/76 Pulse Ox 93 O2 Delivery Room Air Room Air Intake and Output 03/26/19 03/26/19 03/27/19 15:00 23:00 07:00 Intake Total 500 ml 240 ml 730 ml Balance 500 ml 240 ml 730 ml EIVE BHATTI MD March 27, 2019 10:47
[2019-03-27 11:00] VITALS: BP 132/63
[2019-03-27] MEDS: cefTRIAXone IV Push 1 GM VIAL. IVP SCH (11:25)
[2019-03-27] MEDS: VANCOMYCIN 1 GM in IV NORMAL SALINE 250ML 250 ML IV SCH ×2 (11:26→22:57)
[2019-03-27] MEDS: VANCOMYCIN PER PHARMACY MC PRN ×2 (11:38→23:22)
--- NOTE | 2019-03-27 14:33 | PDOC ---
Infectious Disease Note Subjective Subjective c/o back pain Denies loss of bowel/blader control No F/C/S/N/V ROS ROS per HPI Vital Sign Vital Signs Vital Signs Date Time Temp Pulse Resp B/P (MAP) Pulse Ox O2 Delivery O2 Flow Rate FiO2 03/27/19 12:45 Room Air 03/27/19 11:37 93 2.0 03/27/19 11:00 97.5 80 18 132/63 (86) 97.5 Physical Exam PHYSICAL EXAM GENERAL: Sleeping, arouses easily to name HEENT: Pupils equal and reactive. She has normal conjunctivae. Oral cavity, pharynx is clear. NECK: Supple. No JVD. LUNGS: Clear to auscultation. HEART: S1 and S2 with a 2/6 murmur. ABDOMEN: Soft, nontender and nondistended with positive bowel sounds. EXTREMITIES: Without clubbing, cyanosis or gross edema. She has no splinter hemorrhages in her fingers. SKIN: Warm to touch without signs of rash. NEUROLOGICAL: Responds appropriately RUE-PICC (03/26) clean Labs Lab Laboratory Tests Test 03/27/19 06:20 White Blood Count 5.0 x10^3/uL (4.0-11.0) Red Blood Count 2.73 x10^6/uL (3.50-5.40) Hemoglobin 7.7 g/dL (12.0-15.5) Hematocrit 23.2 % (36.0-47.0) Mean Corpuscular Volume 85 fL (79-100) Mean Corpuscular Hemoglobin 28 pg (25-35) Mean Corpuscular Hemoglobin Concent 33 g/dL (31-37) Red Cell Distribution Width 15.1 % (11.5-14.5) Platelet Count 277 x10^3/uL (140-400) Neutrophils (%) (Auto) 73 % (31-73) Lymphocytes (%) (Auto) 12 % (24-48) Monocytes (%) (Auto) 12 % (0-9) Eosinophils (%) (Auto) 3 % (0-3) Basophils (%) (Auto) 1 % (0-3) Neutrophils # (Auto) 3.6 x10^3uL (1.8-7.7) Lymphocytes # (Auto) 0.6 x10^3/uL (1.0-4.8) Monocytes # (Auto) 0.6 x10^3/uL (0.0-1.1) Eosinophils # (Auto) 0.1 x10^3/uL (0.0-0.7) Basophils # (Auto) 0.0 x10^3/uL (0.0-0.2) Sodium Level 136 mmol/L (136-145) Potassium Level 4.7 mmol/L (3.5-5.1) Chloride Level 101 mmol/L (98-107) Carbon Dioxide Level 30 mmol/L (21-32) Anion Gap 5 (6-14) Blood Urea Nitrogen 10 mg/dL (7-20) Creatinine 0.7 mg/dL (0.6-1.0) Estimated GFR (Cockcroft-Gault) 82.5 Glucose Level 96 mg/dL (70-99) Calcium Level 8.1 mg/dL (8.5-10.1) Micro Back biopsy GRAM STAIN RES 2 Final Few gram positive cocci in pairs, chains, and clusters AFB CULTURE GRAM STAIN Final Negative Objective Assessment E coli UTI POA 03/20 Mild confusion - better Murmur MV regurg with flail post leaflet - no peripheral stigmata and no infections or abx for years Back pain. T - endplate edema s/p Aspiration 03/24 - GPC pairs/chains/clusters- Plan Plan of Care Vanc and Rocephin f/u cultures Probiotics Monitor WBC/Temp/pain level/renal function closely D/w daughter DAYSI HUNT AMOS March 27, 2019 14:33
[2019-03-27 15:00] VITALS: BP 149/54
[2019-03-27] MEDS: DULoxetine HCL 30 MG CAPSULE.DR PO SCH (17:22)
[2019-03-27 19:00] VITALS: BP 128/71
[2019-03-27] MEDS: traZODone 50 MG TABLET. PO SCH (20:48)
[2019-03-27] MEDS: GABAPENTIN 300 MG CAPSULE. PO SCH (20:48)
[2019-03-27] MEDS: PATCH REMOVAL. MC SCH (21:00)
[2019-03-27 22:37] LABS: VANC TR 13.4 mcg/mL (10.0-20.0)
[2019-03-27 23:00] VITALS: BP 120/59
--- NOTE | 2019-03-27 23:24 | NUR ---
Pharmacy Vancomycin Dosing Note S: Consulted to monitor and dose vancomycin started 03/26/19. O: RELL SPARKS is a 73 year old F with , DISCITIS . Other Antibiotics: ROCEPHIN LABS: Last BUN: 10 Last Creatinine: 0.7 Creatinine Clearance: 50 mL/min Last WBC: 5.0 Last Procalcitonin: 0.21 Tmax (past 24 hours): 98.4 Microbiology: 03/24; Back biopsy: few g+c in pairs, chains, and clusters I/O: 1470/2 VOIDS Drug Levels: Last Trough level: 13.4 on 03/27/19 at 2130 Last dose given 03/27/19 at 1126 Vancomycin Dosing: Dosing Weight: Actual Target Trough: 15-20 A: Based on: Trough, Actual Wt and CrCl P: 1. 03/28/19 1000 Increase Vancomycin 1250 mg IV q12h 2. Follow up Trough level on 03/29/19 at 0930 3. Pharmacy will continue to monitor, follow and adjust therapy as needed. ESPINOZA AGUILAR RPH, 03/27/19 2324 Signed: 03/27/19 at 2325 by ESPINOZA AGUILAR RPH PHA
[2019-03-28 03:00] VITALS: BP 117/85
[2019-03-28] MEDS: oxyCODONE/APAP 5/325 1 TAB TABLET PO PRN ×4 (03:39→21:28)
[2019-03-28] MEDS: CYCLOBENZAPRINE 10 MG TABLET. PO PRN ×4 (03:41→21:26)
[2019-03-28 06:54] LABS: BASO % 0 % (0-3); EOS # 0.3 x10^3/uL (0.0-0.7); EOS % 4 % (0-3); HEMATOCRIT 25.5 % (36.0-47.0); HEMOGLOBIN 8.4 g/dL (12.0-15.5); LYMPH # 0.6 x10^3/uL (1.0-4.8); LYMPH % 8 % (24-48); MEAN CORPUSCULAR HEMOGLOBIN 28 pg (25-35); MEAN CORPUSCULAR HGB CONC 33 g/dL (31-37); MEAN CORPUSCULAR VOLUME 86 fL (79-100); MONO # 0.6 x10^3/uL (0.0-1.1); MONO % 7 % (0-9); NEUT # 6.4 x10^3uL (1.8-7.7); NEUT % 81 % (31-73); PLATELET COUNT 330 x10^3/uL (140-400); RED BLOOD COUNT 2.95 x10^6/uL (3.50-5.40); RED CELL DISTRIBUTION WIDTH 15.7 % (11.5-14.5); WHITE BLOOD COUNT 7.9 x10^3/uL (4.0-11.0)
[2019-03-28 07:00] VITALS: BP 152/62
[2019-03-28 07:08] LABS: CALCIUM 8.7 mg/dL (8.5-10.1); CREATININE 0.7 mg/dL (0.6-1.0); GFR 82.5; POTASSIUM 5.6 mmol/L (3.5-5.1)
--- NOTE | 2019-03-28 08:40 | PDOC ---
PROGRESS NOTES Chief Complaint Chief Complaint Acute back pain, plain film showed possible compression fx at T12, MRI shows T10-11 lucency in disc, physiatry consulted - s/p IR biopsy for discitis, sed rate and crp highly elevated, consult ID Heart murmur - mitral valve flair leaflet with regurgitation, consulted cardiology Anemia, hgb 8.5, iron level low, TIBC low as chronic disease, b12 WNL, retic WNL, possibly hemolyzing from flail valve or possibly with infection of spine UTI - 100K GNR from [facility] culture, will start empiric antibiotics, vanc and rocephin Ecoli UTI POA 03/20 at [facility] - Mild confusion - better murmur -MV regurg with flail post leaflet - no peripheral stigmata and no infections or abx Back pain T 10 -11 endplate edema s/p Aspiration 03/24 - GPC pairs/chains/clusters- SEPSIS - POA, likely 2/2 infectious discitis ID Following 45 min pt exam, chart review., > 50% of time spent with exam, chart review, pt care coordination History of Present Illness History of Present Illness She had been admitted to [facility] 1.5 days prior for acute back pain, she was mowing her yard, did well, then went to bed, and the next day could not get out of bed. Thoracic MRI shows T10-11 disc inflammatory process and endplate as well. 03/23: She was noted with anemia, echo reviewed showing mitral regurgitation, MRI - T10-11 discitis? and ADALBERTO mitral regurgitation with flail leaflet?. ESR and CRP elevated 03/24: To IR for disc biopsy and culture today. ID consulted. Acute pain to lower spinal area, with pain that is worse with movement, and has crampy tendency. Urine from [facility] e coli, sensitive. Back biopsy shows GPC in pairs, chains, and clusters. Hb to 8.4 today. She is feeling depressed, but this and sleep are a bit better after med adjustments yesterday. Questions answered to patient and daughter. Plan: Percocet increased. Added cymbalta and gabapentin to her regimen. Typed and screened will transfuse if Hb < 7, CBC daily Need definitive cultures from her back for disposition. Vitals Vitals Vital Signs Date Time Temp Pulse Resp B/P (MAP) Pulse Ox O2 Delivery O2 Flow Rate FiO2 03/28/19 07:00 98.0 75 18 152/62 (92) 91 Room Air 98.0 03/27/19 20:30 2.0 Physical Exam Physical Exam GENERAL: Sleeping, arouses easily to name HEENT: Pupils equal and reactive. She has normal conjunctivae. Oral cavity, pharynx is clear. NECK: Supple. No JVD. LUNGS: Clear to auscultation. HEART: S1 and S2 with a 2/6 murmur. ABDOMEN: Soft, nontender and nondistended with positive bowel sounds. EXTREMITIES: Without clubbing, cyanosis or gross edema. She has no splinter hemorrhages in her fingers. SKIN: Warm to touch without signs of rash. NEUROLOGICAL: Responds appropriately RUE-PICC (03/26) clean General: Alert, Oriented X3, Cooperative, No acute distress Heart: Regular rate (SR), Normal S1 Lungs: Clear Abdomen: Normal bowel sounds, Soft, No tenderness Extremities: No clubbing, No cyanosis, Other (1+bilateral LE pitting edema) Skin: No breakdown, No significant lesion Labs LABS Laboratory Tests Test 03/27/19 22:15 03/28/19 06:40 Vancomycin Level Trough 13.4 mcg/mL (10.0-20.0) Vancomycin Last Dose Date Unk Vancomycin Last Dose Time Unk White Blood Count 7.9 x10^3/uL (4.0-11.0) Red Blood Count 2.95 x10^6/uL (3.50-5.40) Hemoglobin 8.4 g/dL (12.0-15.5) Hematocrit 25.5 % (36.0-47.0) Mean Corpuscular Volume 86 fL (79-100) Mean Corpuscular Hemoglobin 28 pg (25-35) Mean Corpuscular Hemoglobin Concent 33 g/dL (31-37) Red Cell Distribution Width 15.7 % (11.5-14.5) Platelet Count 330 x10^3/uL (140-400) Neutrophils (%) (Auto) 81 % (31-73) Lymphocytes (%) (Auto) 8 % (24-48) Monocytes (%) (Auto) 7 % (0-9) Eosinophils (%) (Auto) 4 % (0-3) Basophils (%) (Auto) 0 % (0-3) Neutrophils # (Auto) 6.4 x10^3uL (1.8-7.7) Lymphocytes # (Auto) 0.6 x10^3/uL (1.0-4.8) Monocytes # (Auto) 0.6 x10^3/uL (0.0-1.1) Eosinophils # (Auto) 0.3 x10^3/uL (0.0-0.7) Basophils # (Auto) 0.0 x10^3/uL (0.0-0.2) Sodium Level 135 mmol/L (136-145) Potassium Level 5.6 mmol/L (3.5-5.1) Chloride Level 100 mmol/L (98-107) Carbon Dioxide Level 30 mmol/L (21-32) Anion Gap 5 (6-14) Blood Urea Nitrogen 7 mg/dL (7-20) Creatinine 0.7 mg/dL (0.6-1.0) Estimated GFR (Cockcroft-Gault) 82.5 Glucose Level 113 mg/dL (70-99) Calcium Level 8.7 mg/dL (8.5-10.1) Comment Review of Relevant I have reviewed the following items tolu (where applicable) has been applied. Labs Laboratory Tests Test 03/27/19 06:20 03/27/19 22:15 03/28/19 06:40 White Blood Count 5.0 x10^3/uL (4.0-11.0) 7.9 x10^3/uL (4.0-11.0) Red Blood Count 2.73 x10^6/uL (3.50-5.40) 2.95 x10^6/uL (3.50-5.40) Hemoglobin 7.7 g/dL (12.0-15.5) 8.4 g/dL (12.0-15.5) Hematocrit 23.2 % (36.0-47.0) 25.5 % (36.0-47.0) Mean Corpuscular Volume 85 fL (79-100) 86 fL (79-100) Mean Corpuscular Hemoglobin 28 pg (25-35) 28 pg (25-35) Mean Corpuscular Hemoglobin Concent 33 g/dL (31-37) 33 g/dL (31-37) Red Cell Distribution Width 15.1 % (11.5-14.5) 15.7 % (11.5-14.5) Platelet Count 277 x10^3/uL (140-400) 330 x10^3/uL (140-400) Neutrophils (%) (Auto) 73 % (31-73) 81 % (31-73) Lymphocytes (%) (Auto) 12 % (24-48) 8 % (24-48) Monocytes (%) (Auto) 12 % (0-9) 7 % (0-9) Eosinophils (%) (Auto) 3 % (0-3) 4 % (0-3) Basophils (%) (Auto) 1 % (0-3) 0 % (0-3) Neutrophils # (Auto) 3.6 x10^3uL (1.8-7.7) 6.4 x10^3uL (1.8-7.7) Lymphocytes # (Auto) 0.6 x10^3/uL (1.0-4.8) 0.6 x10^3/uL (1.0-4.8) Monocytes # (Auto) 0.6 x10^3/uL (0.0-1.1) 0.6 x10^3/uL (0.0-1.1) Eosinophils # (Auto) 0.1 x10^3/uL (0.0-0.7) 0.3 x10^3/uL (0.0-0.7) Basophils # (Auto) 0.0 x10^3/uL (0.0-0.2) 0.0 x10^3/uL (0.0-0.2) Sodium Level 136 mmol/L (136-145) 135 mmol/L (136-145) Potassium Level 4.7 mmol/L (3.5-5.1) 5.6 mmol/L (3.5-5.1) Chloride Level 101 mmol/L (98-107) 100 mmol/L (98-107) Carbon Dioxide Level 30 mmol/L (21-32) 30 mmol/L (21-32) Anion Gap 5 (6-14) 5 (6-14) Blood Urea Nitrogen 10 mg/dL (7-20) 7 mg/dL (7-20) Creatinine 0.7 mg/dL (0.6-1.0) 0.7 mg/dL (0.6-1.0) Estimated GFR (Cockcroft-Gault) 82.5 82.5 Glucose Level 96 mg/dL (70-99) 113 mg/dL (70-99) Calcium Level 8.1 mg/dL (8.5-10.1) 8.7 mg/dL (8.5-10.1) Vancomycin Level Trough 13.4 mcg/mL (10.0-20.0) Vancomycin Last Dose Date Unk Vancomycin Last Dose Time Unk Laboratory Tests Test 03/27/19 22:15 03/28/19 06:40 Vancomycin Level Trough 13.4 mcg/mL (10.0-20.0) Vancomycin Last Dose Date Unk Vancomycin Last Dose Time Unk White Blood Count 7.9 x10^3/uL (4.0-11.0) Red Blood Count 2.95 x10^6/uL (3.50-5.40) Hemoglobin 8.4 g/dL (12.0-15.5) Hematocrit 25.5 % (36.0-47.0) Mean Corpuscular Volume 86 fL (79-100) Mean Corpuscular Hemoglobin 28 pg (25-35) Mean Corpuscular Hemoglobin Concent 33 g/dL (31-37) Red Cell Distribution Width 15.7 % (11.5-14.5) Platelet Count 330 x10^3/uL (140-400) Neutrophils (%) (Auto) 81 % (31-73) Lymphocytes (%) (Auto) 8 % (24-48) Monocytes (%) (Auto) 7 % (0-9) Eosinophils (%) (Auto) 4 % (0-3) Basophils (%) (Auto) 0 % (0-3) Neutrophils # (Auto) 6.4 x10^3uL (1.8-7.7) Lymphocytes # (Auto) 0.6 x10^3/uL (1.0-4.8) Monocytes # (Auto) 0.6 x10^3/uL (0.0-1.1) Eosinophils # (Auto) 0.3 x10^3/uL (0.0-0.7) Basophils # (Auto) 0.0 x10^3/uL (0.0-0.2) Sodium Level 135 mmol/L (136-145) Potassium Level 5.6 mmol/L (3.5-5.1) Chloride Level 100 mmol/L (98-107) Carbon Dioxide Level 30 mmol/L (21-32) Anion Gap 5 (6-14) Blood Urea Nitrogen 7 mg/dL (7-20) Creatinine 0.7 mg/dL (0.6-1.0) Estimated GFR (Cockcroft-Gault) 82.5 Glucose Level 113 mg/dL (70-99) Calcium Level 8.7 mg/dL (8.5-10.1) Microbiology 03/24/19 AFB Specimen Processing Tissue - Final, Resulted 03/24/19 Acid Fast Bacilli Culture, Resulted Pending 03/24/19 Gram Stain - Final, Resulted 03/24/19 Fungal Culture, Resulted Pending 03/24/19 Fungal Culture Result 1, Resulted Pending Medications Current Medications Oxycodone/ Acetaminophen (Percocet 5/325) 1 tab PRN Q4HRS PRN PO PAIN Last administered on 03/27/19 06:48; Start 03/22/19 at 15:30; Stop 03/27/19 at 10:44; Status DC Cyclobenzaprine HCl (Flexeril) 10 mg PRN Q6HRS PRN PO MUSCLE SPASMS Last administered on 03/28/19 03:41; Start 03/22/19 at 15:30 Morphine Sulfate (Morphine Sulfate) 4 mg PRN Q2HR PRN IV PAIN, MOD TO SEVERE Last administered on 03/27/19 02:37; Start 03/22/19 at 15:30 Ketorolac Tromethamine (Toradol 15mg Vial) 15 mg PRN Q6HRS PRN IV MILD PAIN Last administered on 03/27/19 09:02; Start 03/22/19 at 15:30; Stop 03/27/19 at 15:29; Status DC Lidocaine (Lidoderm) 1 patch DAILY TD Last administered on 03/27/19 09:16; Start 03/22/19 at 16:00 Miscellaneous (Lidoderm Patch Removal) 1 ea QHS MC Last administered on 03/27/19 21:00; Start 03/22/19 at 21:00 Trazodone HCl (Desyrel) 50 mg QHS PO Last administered on 03/27/19at 20:48; Start 03/22/19 at 21:00 Ondansetron HCl (Zofran) 4 mg PRN Q6HRS PRN IV NAUSEA/VOMITING; Start 03/23/19 at 13:00; Stop 03/24/19 at 12:59; Status DC Fentanyl Citrate (Fentanyl 2ml Vial) 25 mcg PRN Q5MIN PRN IV MILD PAIN; Start 03/23/19 at 13:00; Stop 03/24/19 at 12:59; Status DC Fentanyl Citrate (Fentanyl 2ml Vial) 50 mcg PRN Q5MIN PRN IV MODERATE TO SEVERE PAIN; Start 03/23/19 at 13:00; Stop 03/24/19 at 12:59; Status DC Morphine Sulfate (Morphine Sulfate) 1 mg PRN Q10MIN PRN IV SEVERE PAIN; Start 03/23/19 at 13:00; Stop 03/24/19 at 12:59; Status DC Ringer's Solution 1,000 ml @ 30 mls/hr Q24H IV Last administered on 03/23/19at 13:45; Start 03/23/19 at 12:57; Stop 03/24/19 at 00:56; Status DC Hydromorphone HCl (Dilaudid) 0.5 mg PRN Q10MIN PRN IV SEV PAIN, Second choice; Start 03/23/19 at 13:00; Stop 03/24/19 at 12:59; Status DC Prochlorperazine Edisylate (Compazine) 5 mg PACU PRN PRN IV NAUSEA, MRX1; Start 03/23/19 at 13:00; Stop 03/24/19 at 12:59; Status DC Fentanyl (Duragesic 25mcg/ Hr Patch) 1 patch Q3DAYS TD Last administered on 03/26/19at 08:03; Start 03/23/19 at 14:00 Benzocaine (Hurricaine One) 3 spray 1X ONCE MM Last administered on 03/23/19at 14:45; Start 03/23/19 at 13:45; Stop 03/23/19 at 13:50; Status DC Lidocaine HCl (Glydo (Lidocaine) Jelly) 1 gordy 1X ONCE MM ; Start 03/23/19 at 13:45; Stop 03/23/19 at 13:50; Status DC Lidocaine HCl (Viscous Lidocaine) 15 ml 1X ONCE SWSW ; Start 03/23/19 at 13:45; Stop 03/23/19 at 13:50; Status DC Lidocaine HCl (Xylocaine 2% Topical 30gm Tube) 1 gordy 1X ONCE TP Last administered on 03/23/19at 13:45; Start 03/23/19 at 14:00; Stop 03/23/19 at 14:01; Status DC Lidocaine HCl (Viscous Lidocaine) 15 ml STK-MED ONCE .ROUTE ; Start 03/23/19 at 13:51; Stop 03/23/19 at 13:52; Status DC Propofol 20 ml @ As Directed STK-MED ONCE IV ; Start 03/23/19 at 14:44; Stop 03/23/19 at 14:45; Status DC Lidocaine/Sodium Bicarbonate (Buffered Lidocaine 1%) 3 ml STK-MED ONCE .ROUTE ; Start 03/24/19 at 13:21; Stop 03/24/19 at 13:22; Status DC Midazolam HCl (Versed) 2 mg STK-MED ONCE .ROUTE ; Start 03/24/19 at 13:23; Stop 03/24/19 at 13:24; Status DC Fentanyl Citrate (Fentanyl 2ml Vial) 100 mcg STK-MED ONCE .ROUTE ; Start 03/24/19 at 13:23; Stop 03/24/19 at 13:24; Status DC Lidocaine/Sodium Bicarbonate (Buffered Lidocaine 1%) 3 ml 1X ONCE IJ Last administered on 03/24/19at 14:20; Start 03/24/19 at 13:30; Stop 03/24/19 at 13:35; Status DC Midazolam HCl (Versed) 2 mg 1X ONCE IV Last administered on 03/24/19at 14:20; Start 03/24/19 at 13:30; Stop 03/24/19 at 13:35; Status DC Fentanyl Citrate (Fentanyl 2ml Vial) 100 mcg 1X ONCE IV Last administered on 03/24/19at 14:19; Start 03/24/19 at 13:30; Stop 03/24/19 at 13:35; Status DC Metoprolol Tartrate (Lopressor) 25 mg BID PO Last administered on 03/27/19at 20:49; Start 03/24/19 at 21:00 Ceftriaxone Sodium (Rocephin) 1 gm Q24H IVP Last administered on 03/27/19at 11:25; Start 03/25/19 at 10:00 Lactobacillus Rhamnosus (Culturelle) 1 cap BID PO Last administered on 03/27/19 20:48; Start 03/25/19 at 21:00 Ferrous Sulfate (Feosol) 325 mg BIDWMEALS PO Last administered on 03/27/19 17:22; Start 03/25/19 at 17:00 Senna/Docusate Sodium (Senna Plus) 2 tab PRN BID PRN PO CONSTIPATION; Start 03/25/19 at 21:00 Polyethylene Glycol (miraLAX PACKET) 17 gm DAILY PO Last administered on 03/25/19 22:54; Start 03/25/19 at 21:00 Psyllium Hydrophilic Mucilloid (Metamucil Fiber Packet) 1 pkt DAILY PO Last administered on 03/25/19 22:54; Start 03/25/19 at 21:00 Vancomycin HCl (Vanco Per Pharmacy) 1 each PRN DAILY PRN MC SEE COMMENTS Last administered on 03/27/19 23:22; Start 03/26/19 at 09:15 Vancomycin HCl 1.75 gm/Sodium Chloride 500 ml @ 250 mls/hr 1X ONCE IV Last administered on 03/26/19 09:52; Start 03/26/19 at 10:00; Stop 03/26/19 at 11:59; Status DC Vancomycin HCl 1 gm/Sodium Chloride 250 ml @ 250 mls/hr Q12H IV Last administered on 03/27/19 22:57; Start 03/26/19 at 22:00; Stop 03/27/19 at 23:17; Status DC Vancomycin HCl (Vancomycin Trough Level) 1 each 1X ONCE MC Last administered on 03/27/19at 21:30; Start 03/27/19 at 21:30; Stop 03/27/19 at 21:31; Status DC Oxycodone/ Acetaminophen (Percocet 5/325) 2 tab PRN Q4HRS PRN PO PAIN Last administered on 03/28/19 03:39; Start 03/27/19 at 10:45 Duloxetine HCl (Cymbalta) 30 mg DAILY PO Last administered on 03/27/19 17:22; Start 03/27/19 at 13:30 Gabapentin (Neurontin) 300 mg QHS PO Last administered on 03/27/19 20:48; Start 03/27/19 at 21:00 Vancomycin HCl 1.25 gm/Sodium Chloride 250 ml @ 167 mls/hr Q12H IV ; Start 03/28/19 at 10:00 Vancomycin HCl (Vancomycin Trough Level) 1 each 1X ONCE MC ; Start 03/29/19 at 09:30; Stop 03/29/19 at 09:31 Active Scripts Active Reported No Known Medications Prior To Admisstion (Info) Each 1 Each MC DAILY Vitals/I & O Vital Sign - Last 24 Hours 03/27/19 03/27/19 03/27/19 03/27/19 09:00 11:00 11:37 15:00 Temp 97.5 97.6 97.5 97.6 Pulse 98 80 93 Resp 18 18 B/P (MAP) 146/76 132/63 (86) 149/54 (85) Pulse Ox 91 93 96 O2 Delivery Room Air Room Air Room Air O2 Flow Rate 2.0 03/27/19 03/27/19 03/27/19 03/27/19 19:00 20:00 20:30 20:49 Temp 98.3 98.3 Pulse 91 91 Resp 18 B/P (MAP) 128/71 (90) 128/71 Pulse Ox 94 94 O2 Delivery Room Air Room Air Room Air O2 Flow Rate 2.0 2.0 03/27/19 03/28/19 03/28/19 23:00 03:00 07:00 Temp 97.5 97.8 98.0 97.5 97.8 98.0 Pulse 91 82 75 Resp 18 18 18 B/P (MAP) 120/59 (79) 117/85 (96) 152/62 (92) Pulse Ox 90 93 91 O2 Delivery Room Air Room Air Room Air Intake and Output 03/27/19 03/27/19 03/28/19 15:00 23:00 07:00 Intake Total 340 ml 220 ml Balance 340 ml 220 ml BRIAN SALAS MD March 28, 2019 08:40
[2019-03-28] MEDS: POLYETHYLENE GLYCOL 3350 17 GM PACKET. PO SCH (09:00)
[2019-03-28] MEDS: METOPROLOL TART IMMED RELEASE 25 MG TABLET. PO SCH ×2 (09:00→21:27)
[2019-03-28] MEDS: PSYLLIUM HUSK (SUGAR FREE) 1 PKT PACKET PO SCH (09:00)
[2019-03-28] MEDS: FERROUS SULFATE 325 MG TABLET. PO SCH ×2 (09:19→17:00)
[2019-03-28] MEDS: LACTOBACILLUS RHAMNOSUS GG 1 CAPSULE. PO SCH ×2 (09:20→21:26)
[2019-03-28] MEDS: DULoxetine HCL 30 MG CAPSULE.DR PO SCH (09:21)
[2019-03-28] MEDS: cefTRIAXone IV Push 1 GM VIAL. IVP SCH (09:27)
[2019-03-28] MEDS: VANCOMYCIN PER PHARMACY MC PRN (09:35)
[2019-03-28] MEDS: LIDOCAINE (700MG/PATCH) PATCH. TD SCH (09:37)
[2019-03-28] MEDS: VANCOMYCIN 1.25 GM in IV NORMAL SALINE 250ML 250 ML IV SCH ×2 (10:23→22:22)
[2019-03-28 11:00] VITALS: BP 140/72
--- NOTE | 2019-03-28 12:12 | PDOC ---
Infectious Disease Note Subjective Subjective [place] anxious earlier, better and more relaxed now Denies pain Denies loss of bowel/blader control No F/C/S/N/V ROS ROS per HPI Vital Sign Vital Signs Vital Signs Date Time Temp Pulse Resp B/P (MAP) Pulse Ox O2 Delivery O2 Flow Rate FiO2 03/28/19 11:00 97.7 83 18 140/72 (94) 92 Room Air 97.7 03/28/19 09:24 2.0 Physical Exam PHYSICAL EXAM GENERAL: Propped up in bed, alert, smiling, eating HEENT: Pupils equal and reactive. She has normal conjunctivae. Oral cavity, pharynx is clear. NECK: Supple. LUNGS: Clear to auscultation. HEART: S1 and S2 with a 2/6 murmur. ABDOMEN: Soft, nontender and nondistended with positive bowel sounds. EXTREMITIES: Trace edema lower extremities, bilaterally SKIN: Warm to touch without signs of rash. NEUROLOGICAL: ALert and responds appropriately RUE-PICC (03/26) clean Labs Lab Laboratory Tests Test 03/27/19 22:15 03/28/19 06:40 Vancomycin Level Trough 13.4 mcg/mL (10.0-20.0) Vancomycin Last Dose Date Unk Vancomycin Last Dose Time Unk White Blood Count 7.9 x10^3/uL (4.0-11.0) Red Blood Count 2.95 x10^6/uL (3.50-5.40) Hemoglobin 8.4 g/dL (12.0-15.5) Hematocrit 25.5 % (36.0-47.0) Mean Corpuscular Volume 86 fL (79-100) Mean Corpuscular Hemoglobin 28 pg (25-35) Mean Corpuscular Hemoglobin Concent 33 g/dL (31-37) Red Cell Distribution Width 15.7 % (11.5-14.5) Platelet Count 330 x10^3/uL (140-400) Neutrophils (%) (Auto) 81 % (31-73) Lymphocytes (%) (Auto) 8 % (24-48) Monocytes (%) (Auto) 7 % (0-9) Eosinophils (%) (Auto) 4 % (0-3) Basophils (%) (Auto) 0 % (0-3) Neutrophils # (Auto) 6.4 x10^3uL (1.8-7.7) Lymphocytes # (Auto) 0.6 x10^3/uL (1.0-4.8) Monocytes # (Auto) 0.6 x10^3/uL (0.0-1.1) Eosinophils # (Auto) 0.3 x10^3/uL (0.0-0.7) Basophils # (Auto) 0.0 x10^3/uL (0.0-0.2) Sodium Level 135 mmol/L (136-145) Potassium Level 5.6 mmol/L (3.5-5.1) Chloride Level 100 mmol/L (98-107) Carbon Dioxide Level 30 mmol/L (21-32) Anion Gap 5 (6-14) Blood Urea Nitrogen 7 mg/dL (7-20) Creatinine 0.7 mg/dL (0.6-1.0) Estimated GFR (Cockcroft-Gault) 82.5 Glucose Level 113 mg/dL (70-99) Calcium Level 8.7 mg/dL (8.5-10.1) Micro Back biopsy GRAM STAIN RES 2 Final Few gram positive cocci in pairs, chains, and clusters AFB CULTURE GRAM STAIN Final Negative Objective Assessment E coli UTI POA 03/20 Mild confusion - better Murmur MV regurg with flail post leaflet - no peripheral stigmata and no infections or abx for years Back pain. 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
[2019-03-28 15:00] VITALS: BP 145/57
[2019-03-28 19:00] VITALS: BP 130/66
[2019-03-28] MEDS: PATCH REMOVAL. MC SCH (21:00)
[2019-03-28] MEDS: traZODone 50 MG TABLET. PO SCH (21:27)
[2019-03-28] MEDS: GABAPENTIN 300 MG CAPSULE. PO SCH (21:27)
[2019-03-28 23:00] VITALS: BP 97/49
[2019-03-29 03:00] VITALS: BP 112/59
[2019-03-29 07:00] VITALS: BP 156/85
[2019-03-29] MEDS: oxyCODONE/APAP 5/325 1 TAB TABLET PO PRN ×2 (07:01→12:11)
[2019-03-29] MEDS: METOPROLOL TART IMMED RELEASE 25 MG TABLET. PO SCH (08:12)
[2019-03-29] MEDS: FERROUS SULFATE 325 MG TABLET. PO SCH (08:12)
[2019-03-29] MEDS: LACTOBACILLUS RHAMNOSUS GG 1 CAPSULE. PO SCH (08:12)
[2019-03-29] MEDS: fentaNYL 25MCG/HR PATCH 1 PATCH PATCH.TD72 TD SCH (08:13)
[2019-03-29] MEDS: CYCLOBENZAPRINE 10 MG TABLET. PO PRN (08:16)
[2019-03-29] MEDS: LIDOCAINE (700MG/PATCH) PATCH. TD SCH (08:20)
[2019-03-29] MEDS: cefTRIAXone IV Push 1 GM VIAL. IVP SCH (08:21)
[2019-03-29] MEDS: POLYETHYLENE GLYCOL 3350 17 GM PACKET. PO SCH (09:00)
[2019-03-29] MEDS: PSYLLIUM HUSK (SUGAR FREE) 1 PKT PACKET PO SCH (09:00)
--- NOTE | 2019-03-29 09:13 | PDOC ---
PROGRESS NOTES Subjective Subjective She admits continued mid back area pain. Objective Objective Vital Signs Date Time Temp Pulse Resp B/P (MAP) Pulse Ox O2 Delivery O2 Flow Rate FiO2 03/29/19 08:13 Room Air 03/29/19 08:12 93 156/85 03/29/19 07:00 97.9 18 89 97.9 03/28/19 19:45 2.0 Intake and Output 03/29/19 07:00 Intake Total 1520 ml Balance 1520 ml Intake Oral 1520 ml # Voids 4 Physical Exam Physical Exam She is getting up with back brace and walker. Plan Plan of Care Awaiting biopsy report. Comment Review of Relevant I have reviewed the following items tolu (where applicable) has been applied. Labs Laboratory Tests Test 03/27/19 22:15 03/28/19 06:40 Vancomycin Level Trough 13.4 mcg/mL (10.0-20.0) Vancomycin Last Dose Date Unk Vancomycin Last Dose Time Unk White Blood Count 7.9 x10^3/uL (4.0-11.0) Red Blood Count 2.95 x10^6/uL (3.50-5.40) Hemoglobin 8.4 g/dL (12.0-15.5) Hematocrit 25.5 % (36.0-47.0) Mean Corpuscular Volume 86 fL (79-100) Mean Corpuscular Hemoglobin 28 pg (25-35) Mean Corpuscular Hemoglobin Concent 33 g/dL (31-37) Red Cell Distribution Width 15.7 % (11.5-14.5) Platelet Count 330 x10^3/uL (140-400) Neutrophils (%) (Auto) 81 % (31-73) Lymphocytes (%) (Auto) 8 % (24-48) Monocytes (%) (Auto) 7 % (0-9) Eosinophils (%) (Auto) 4 % (0-3) Basophils (%) (Auto) 0 % (0-3) Neutrophils # (Auto) 6.4 x10^3uL (1.8-7.7) Lymphocytes # (Auto) 0.6 x10^3/uL (1.0-4.8) Monocytes # (Auto) 0.6 x10^3/uL (0.0-1.1) Eosinophils # (Auto) 0.3 x10^3/uL (0.0-0.7) Basophils # (Auto) 0.0 x10^3/uL (0.0-0.2) Sodium Level 135 mmol/L (136-145) Potassium Level 5.6 mmol/L (3.5-5.1) Chloride Level 100 mmol/L (98-107) Carbon Dioxide Level 30 mmol/L (21-32) Anion Gap 5 (6-14) Blood Urea Nitrogen 7 mg/dL (7-20) Creatinine 0.7 mg/dL (0.6-1.0) Estimated GFR (Cockcroft-Gault) 82.5 Glucose Level 113 mg/dL (70-99) Calcium Level 8.7 mg/dL (8.5-10.1) Microbiology 03/24/19 AFB Specimen Processing Tissue - Final, Resulted 03/24/19 Acid Fast Bacilli Culture, Resulted Pending 03/24/19 Gram Stain - Final, Resulted 03/24/19 Fungal Culture, Resulted Pending 03/24/19 Fungal Culture Result 1, Resulted Pending Medications Current Medications Oxycodone/ Acetaminophen (Percocet 5/325) 1 tab PRN Q4HRS PRN PO PAIN Last administered on 03/27/19 06:48; Start 03/22/19 at 15:30; Stop 03/27/19 at 10:44; Status DC Cyclobenzaprine HCl (Flexeril) 10 mg PRN Q6HRS PRN PO MUSCLE SPASMS Last administered on 03/29/19 08:16; Start 03/22/19 at 15:30 Morphine Sulfate (Morphine Sulfate) 4 mg PRN Q2HR PRN IV PAIN, MOD TO SEVERE Last administered on 03/27/19at 02:37; Start 03/22/19 at 15:30 Ketorolac Tromethamine (Toradol 15mg Vial) 15 mg PRN Q6HRS PRN IV MILD PAIN Last administered on 03/27/19 09:02; Start 03/22/19 at 15:30; Stop 03/27/19 at 15:29; Status DC Lidocaine (Lidoderm) 1 patch DAILY TD Last administered on 03/29/19 08:20; Start 03/22/19 at 16:00 Miscellaneous (Lidoderm Patch Removal) 1 ea QHS MC Last administered on 5/19/19at 21:00; Start 03/22/19 at 21:00 Trazodone HCl (Desyrel) 50 mg QHS PO Last administered on 03/28/19at 21:27; Start 03/22/19 at 21:00 Ondansetron HCl (Zofran) 4 mg PRN Q6HRS PRN IV NAUSEA/VOMITING; Start 03/23/19 at 13:00; Stop 03/24/19 at 12:59; Status DC Fentanyl Citrate (Fentanyl 2ml Vial) 25 mcg PRN Q5MIN PRN IV MILD PAIN; Start 03/23/19 at 13:00; Stop 03/24/19 at 12:59; Status DC Fentanyl Citrate (Fentanyl 2ml Vial) 50 mcg PRN Q5MIN PRN IV MODERATE TO SEVERE PAIN; Start 03/23/19 at 13:00; Stop 03/24/19 at 12:59; Status DC Morphine Sulfate (Morphine Sulfate) 1 mg PRN Q10MIN PRN IV SEVERE PAIN; Start 03/23/19 at 13:00; Stop 03/24/19 at 12:59; Status DC Ringer's Solution 1,000 ml @ 30 mls/hr Q24H IV Last administered on 03/23/19at 13:45; Start 03/23/19 at 12:57; Stop 03/24/19 at 00:56; Status DC Hydromorphone HCl (Dilaudid) 0.5 mg PRN Q10MIN PRN IV SEV PAIN, Second choice; Start 03/23/19 at 13:00; Stop 03/24/19 at 12:59; Status DC Prochlorperazine Edisylate (Compazine) 5 mg PACU PRN PRN IV NAUSEA, MRX1; Start 03/23/19 at 13:00; Stop 03/24/19 at 12:59; Status DC Fentanyl (Duragesic 25mcg/ Hr Patch) 1 patch Q3DAYS TD Last administered on 03/29/19at 08:13; Start 03/23/19 at 14:00 Benzocaine (Hurricaine One) 3 spray 1X ONCE MM Last administered on 03/23/19at 14:45; Start 03/23/19 at 13:45; Stop 03/23/19 at 13:50; Status DC Lidocaine HCl (Glydo (Lidocaine) Jelly) 1 gordy 1X ONCE MM ; Start 03/23/19 at 13:45; Stop 03/23/19 at 13:50; Status DC Lidocaine HCl (Viscous Lidocaine) 15 ml 1X ONCE SWSW ; Start 03/23/19 at 13:45; Stop 03/23/19 at 13:50; Status DC Lidocaine HCl (Xylocaine 2% Topical 30gm Tube) 1 gordy 1X ONCE TP Last administered on 03/23/19at 13:45; Start 03/23/19 at 14:00; Stop 03/23/19 at 14:01; Status DC Lidocaine HCl (Viscous Lidocaine) 15 ml STK-MED ONCE .ROUTE ; Start 03/23/19 at 13:51; Stop 03/23/19 at 13:52; Status DC Propofol 20 ml @ As Directed STK-MED ONCE IV ; Start 03/23/19 at 14:44; Stop 03/23/19 at 14:45; Status DC Lidocaine/Sodium Bicarbonate (Buffered Lidocaine 1%) 3 ml STK-MED ONCE .ROUTE ; Start 03/24/19 at 13:21; Stop 03/24/19 at 13:22; Status DC Midazolam HCl (Versed) 2 mg STK-MED ONCE .ROUTE ; Start 03/24/19 at 13:23; Stop 03/24/19 at 13:24; Status DC Fentanyl Citrate (Fentanyl 2ml Vial) 100 mcg STK-MED ONCE .ROUTE ; Start 03/24/19 at 13:23; Stop 03/24/19 at 13:24; Status DC Lidocaine/Sodium Bicarbonate (Buffered Lidocaine 1%) 3 ml 1X ONCE IJ Last administered on 03/24/19at 14:20; Start 03/24/19 at 13:30; Stop 03/24/19 at 13:35; Status DC Midazolam HCl (Versed) 2 mg 1X ONCE IV Last administered on 03/24/19at 14:20; Start 03/24/19 at 13:30; Stop 03/24/19 at 13:35; Status DC Fentanyl Citrate (Fentanyl 2ml Vial) 100 mcg 1X ONCE IV Last administered on 03/24/19at 14:19; Start 03/24/19 at 13:30; Stop 03/24/19 at 13:35; Status DC Metoprolol Tartrate (Lopressor) 25 mg BID PO Last administered on 03/29/19at 08:12; Start 03/24/19 at 21:00 Ceftriaxone Sodium (Rocephin) 1 gm Q24H IVP Last administered on 03/29/19 08:21; Start 03/25/19 at 10:00 Lactobacillus Rhamnosus (Culturelle) 1 cap BID PO Last administered on 03/29/19 08:12; Start 03/25/19 at 21:00 Ferrous Sulfate (Feosol) 325 mg BIDWMEALS PO Last administered on 03/29/19 08:12; Start 03/25/19 at 17:00 Senna/Docusate Sodium (Senna Plus) 2 tab PRN BID PRN PO CONSTIPATION; Start 03/25/19 at 21:00 Polyethylene Glycol (miraLAX PACKET) 17 gm DAILY PO Last administered on 03/25/19 22:54; Start 03/25/19 at 21:00 Psyllium Hydrophilic Mucilloid (Metamucil Fiber Packet) 1 pkt DAILY PO Last adm inistered on 03/25/19 22:54; Start 03/25/19 at 21:00 Vancomycin HCl (Vanco Per Pharmacy) 1 each PRN DAILY PRN MC SEE COMMENTS Last administered on 03/28/19 09:35; Start 03/26/19 at 09:15 Vancomycin HCl 1.75 gm/Sodium Chloride 500 ml @ 250 mls/hr 1X ONCE IV Last administered on 03/26/19 09:52; Start 03/26/19 at 10:00; Stop 03/26/19 at 11:59; Status DC Vancomycin HCl 1 gm/Sodium Chloride 250 ml @ 250 mls/hr Q12H IV Last administered on 03/27/19 22:57; Start 03/26/19 at 22:00; Stop 03/27/19 at 23:17 ; Status DC Vancomycin HCl (Vancomycin Trough Level) 1 each 1X ONCE MC Last administered on 03/27/19 21:30; Start 03/27/19 at 21:30; Stop 03/27/19 at 21:31; Status DC Oxycodone/ Acetaminophen (Percocet 5/325) 2 tab PRN Q4HRS PRN PO PAIN Last administered on 03/29/19 07:01; Start 03/27/19 at 10:45 Duloxetine HCl (Cymbalta) 30 mg DAILY PO Last administered on 5/19/19at 09:21; Start 03/27/19 at 13:30; Stop 03/28/19 at 19:56; Status DC Gabapentin (Neurontin) 300 mg QHS PO Last administered on 03/28/19at 21:27; Start 03/27/19 at 21:00 Vancomycin HCl 1.25 gm/Sodium Chloride 250 ml @ 167 mls/hr Q12H IV Last administered on 03/28/19at 22:22; Start 03/28/19 at 10:00 Vancomycin HCl (Vancomycin Trough Level) 1 each 1X ONCE MC ; Start 03/29/19 at 09:30; Stop 03/29/19 at 09:31 Active Scripts Active Reported No Known Medications Prior To Admisstion (Info) Each 1 Each MC DAILY Vitals/I & O Vital Sign - Last 24 Hours 03/28/19 03/28/19 03/28/19 03/28/19 09:24 11:00 15:00 15:38 Temp 97.7 97.7 97.7 97.7 Pulse 83 89 Resp 18 18 B/P (MAP) 140/72 (94) 145/57 (86) Pulse Ox 91 92 95 92 O2 Delivery Room Air Room Air Room Air Room Air O2 Flow Rate 2.0 2.0 03/28/19 03/28/19 03/28/19 03/28/19 17:00 19:00 19:45 21:27 Temp 98.2 98.2 Pulse 89 89 Resp 18 B/P (MAP) 130/66 (87) 130/66 Pulse Ox 91 O2 Delivery Room Air Room Air Room Air O2 Flow Rate 2.0 03/28/19 03/29/19 03/29/19 03/29/19 23:00 03:00 07:00 07:33 Temp 97.9 97.5 97.9 97.9 97.5 97.9 Pulse 70 82 93 Resp 18 18 18 B/P (MAP) 97/49 (65) 112/59 (76) 156/85 (108) Pulse Ox 92 92 89 O2 Delivery Room Air Room Air Room Air Room Air 03/29/19 03/29/19 08:12 08:13 Pulse 93 B/P (MAP) 156/85 O2 Delivery Room Air Intake and Output 03/28/19 03/28/19 03/29/19 15:00 23:00 07:00 Intake Total 660 ml 660 ml 200 ml Balance 660 ml 660 ml 200 ml EVIE BHATTI MD March 29, 2019 09:13
[2019-03-29] MEDS: VANCOMYCIN 1.25 GM in IV NORMAL SALINE 250ML 250 ML IV SCH (10:01)
[2019-03-29 10:09] LABS: VANC TR 17.1 mcg/mL (10.0-20.0)
[2019-03-29] MEDS: VANCOMYCIN PER PHARMACY MC PRN (10:27)
--- NOTE | 2019-03-29 10:28 | NUR ---
Pharmacy Vancomycin Dosing Note S: Consulted to monitor and dose vancomycin started 03/26/19. O: RELL SPARKS is a 73 year old F with , DISCITIS . Other Antibiotics: ROCEPHIN LABS: Last BUN: 7 Last Creatinine: 0.7 Creatinine Clearance: 50 mL/min Last WBC: 7.9 Last Procalcitonin: 0.21 Tmax (past 24 hours): AFEBRILE Microbiology: 03/24; Back biopsy: few g+c in pairs, chains, and clusters Drug Levels: Last Trough level: 17.1 on 03/29/19 at 0930 Vancomycin Dosing: Dosing Weight: Actual Target Trough: 15-20 A: Based on: VANCO Trough level P: 1. Continue Vancomycin 1250 mg IV q12h 2. Follow up Trough level in 5-7 days or if renal function changes. 3. Pharmacy will continue to monitor, follow and adjust therapy as needed. DOTTIE LEYVA RPH, 03/29/19 [id number]
[2019-03-29 11:00] VITALS: BP 120/61
--- NOTE | 2019-03-29 11:41 | PDOC ---
Infectious Disease Note Subjective Subjective Lucas anxious earlier, better and more relaxed now Denies pain Denies loss of bowel/blader control No F/C/S/N/V Vital Sign Vital Signs Vital Signs Date Time Temp Pulse Resp B/P (MAP) Pulse Ox O2 Delivery O2 Flow Rate FiO2 03/29/19 09:09 Room Air 03/29/19 08:12 93 156/85 03/29/19 07:00 97.9 18 89 97.9 03/28/19 19:45 2.0 Physical Exam PHYSICAL EXAM GENERAL: Propped up in bed, alert, smiling, eating HEENT: Pupils equal and reactive. She has normal conjunctivae. Oral cavity, pharynx is clear. NECK: Supple. LUNGS: Clear to auscultation. HEART: S1 and S2 with a 2/6 murmur. ABDOMEN: Soft, nontender and nondistended with positive bowel sounds. EXTREMITIES: Trace edema lower extremities, bilaterally SKIN: Warm to touch without signs of rash. NEUROLOGICAL: ALert and responds appropriately RUE-PICC (03/26) clean Labs Lab Laboratory Tests Test 03/29/19 09:30 Vancomycin Level Trough 17.1 mcg/mL (10.0-20.0) Vancomycin Last Dose Date 03/28/19 Vancomycin Last Dose Time 2200 Micro Microbiology 03/24/19 AFB Specimen Processing Tissue - Final, Resulted 03/24/19 Acid Fast Bacilli Culture, Resulted Pending 03/24/19 Gram Stain - Final, Resulted 03/24/19 Fungal Culture, Resulted Pending 03/24/19 Fungal Culture Result 1, Resulted Pending Objective Assessment E coli UTI POA 03/20 Mild confusion - better Murmur MV regurg with flail post leaflet - no peripheral stigmata and no infections or abx for years Back pain. T - endplate edema s/p Aspiration 03/24 - GPC pairs/chains/clusters- Plan Plan of Care Rocephin 2 gm daily Trough 13.4 f/u cultures Probiotics Monitor WBC/Temp/pain level/renal function closely D/w daughter wkly cbc, bun/cr, sed rate f/u with us in 2 wks ROLY SALINAS MD March 29, 2019 11:41
--- NOTE | 2019-03-29 12:16 | NUR ---
SW following for discharge planning. Discussed with RN, pt will be discharging on 2grams Rocephin daily. Pt does not have any home infusion benefits so would be self pay. Daily lai through [facility] is $26.04 for the Rocephin and $20 for supplies. [facility] met with pt and pt's daughter at bedside, they would like to do this outpatient at [facility] in [place], [facility] faxed script to [facility], awaiting call back. [facility] has accepted pt for PT/OT/RN. [facility] will continue to follow.
--- NOTE | 2019-03-29 12:22 | PDOC ---
PROGRESS NOTES Chief Complaint Chief Complaint Acute back pain, plain film showed possible compression fx at T12, MRI shows T10-11 lucency in disc, physiatry consulted - s/p IR biopsy for discitis, sed rate and crp highly elevated, consulted ID Heart murmur - mitral valve flair leaflet with regurgitation, consulted cardiology Anemia, hgb 8.5, iron level low, TIBC low as chronic disease, b12 WNL, retic WNL, possibly hemolyzing from flail valve or possibly with infection of spine UTI - 100K GNR from [place] culture, will start empiric antibiotics, vanc and rocephin Ecoli UTI POA 03/20 at [place] - Mild confusion - better murmur -MV regurg with flail post leaflet - no peripheral stigmata and no infections or abx Back pain T 10 -11 endplate edema s/p Aspiration 03/24 - GPC pairs/chains/clusters- SEPSIS - POA, likely 2/2 infectious discitis ID Following History of Present Illness History of Present Illness She had been admitted to [facility] 1.5 days prior for acute back pain, she was mowing her yard, did well, then went to bed, and the next day could not get out of bed. Thoracic MRI shows T10-11 disc inflammatory process and endplate as well. 03/23: She was noted with anemia, echo reviewed showing mitral regurgitation, MRI - T10-11 discitis? and ADALBERTO mitral regurgitation with flail leaflet?. ESR and CRP elevated 03/24: To IR for disc biopsy and culture. ID consulted. back pain better. Urine from [facility] e coli, sensitive. Back biopsy shows GPC in pairs, chains, and clusters. Hb stable. Questions answered to patient and daughter. Plan: continue percocet. Added cymbalta and gabapentin to her regimen. Typed and screened will transfuse if Hb < 7, CBC daily Need definitive cultures from her back for disposition. continue Rocephin labs in AM Vitals Vitals Vital Signs Date Time Temp Pulse Resp B/P (MAP) Pulse Ox O2 Delivery O2 Flow Rate FiO2 03/29/19 12:11 92 Room Air 03/29/19 11:00 97.9 65 18 120/61 (80) 97.9 03/28/19 19:45 2.0 Physical Exam Physical Exam GENERAL: Propped up in bed, alert, smiling, eating HEENT: Pupils equal and reactive. She has normal conjunctivae. Oral cavity, pharynx is clear. NECK: Supple. LUNGS: Clear to auscultation. HEART: S1 and S2 with a 2/6 murmur. ABDOMEN: Soft, nontender and nondistended with positive bowel sounds. EXTREMITIES: Trace edema lower extremities, bilaterally SKIN: Warm to touch without signs of rash. NEUROLOGICAL: ALert and responds appropriately RUE-PICC (03/26) clean General: Alert, Oriented X3, Cooperative, No acute distress Heart: Regular rate (SR), Normal S1 Lungs: Clear Abdomen: Normal bowel sounds, Soft, No tenderness Extremities: No clubbing, No cyanosis, Other (1+bilateral LE pitting edema) Skin: No breakdown, No significant lesion Labs LABS Laboratory Tests Test 03/29/19 09:30 Vancomycin Level Trough 17.1 mcg/mL (10.0-20.0) Vancomycin Last Dose Date 03/28/19 Vancomycin Last Dose Time 2200 Comment Review of Relevant I have reviewed the following items tolu (where applicable) has been applied. Labs Laboratory Tests Test 03/27/19 22:15 03/28/19 06:40 03/29/19 09:30 Vancomycin Level Trough 13.4 mcg/mL (10.0-20.0) 17.1 mcg/mL (10.0-20.0) Vancomycin Last Dose Date Unk 03/28/19 Vancomycin Last Dose Time Unk 2200 White Blood Count 7.9 x10^3/uL (4.0-11.0) Red Blood Count 2.95 x10^6/uL (3.50-5.40) Hemoglobin 8.4 g/dL (12.0-15.5) Hematocrit 25.5 % (36.0-47.0) Mean Corpuscular Volume 86 fL (79-100) Mean Corpuscular Hemoglobin 28 pg (25-35) Mean Corpuscular Hemoglobin Concent 33 g/dL (31-37) Red Cell Distribution Width 15.7 % (11.5-14.5) Platelet Count 330 x10^3/uL (140-400) Neutrophils (%) (Auto) 81 % (31-73) Lymphocytes (%) (Auto) 8 % (24-48) Monocytes (%) (Auto) 7 % (0-9) Eosinophils (%) (Auto) 4 % (0-3) Basophils (%) (Auto) 0 % (0-3) Neutrophils # (Auto) 6.4 x10^3uL (1.8-7.7) Lymphocytes # (Auto) 0.6 x10^3/uL (1.0-4.8) Monocytes # (Auto) 0.6 x10^3/uL (0.0-1.1) Eosinophils # (Auto) 0.3 x10^3/uL (0.0-0.7) Basophils # (Auto) 0.0 x10^3/uL (0.0-0.2) Sodium Level 135 mmol/L (136-145) Potassium Level 5.6 mmol/L (3.5-5.1) Chloride Level 100 mmol/L (98-107) Carbon Dioxide Level 30 mmol/L (21-32) Anion Gap 5 (6-14) Blood Urea Nitrogen 7 mg/dL (7-20) Creatinine 0.7 mg/dL (0.6-1.0) Estimated GFR (Cockcroft-Gault) 82.5 Glucose Level 113 mg/dL (70-99) Calcium Level 8.7 mg/dL (8.5-10.1) Laboratory Tests Test 03/29/19 09:30 Vancomycin Level Trough 17.1 mcg/mL (10.0-20.0) Vancomycin Last Dose Date 03/28/19 Vancomycin Last Dose Time 2200 Microbiology 03/24/19 AFB Specimen Processing Tissue - Final, Resulted 03/24/19 Acid Fast Bacilli Culture, Resulted Pending 03/24/19 Gram Stain - Final, Resulted 03/24/19 Fungal Culture, Resulted Pending 03/24/19 Fungal Culture Result 1, Resulted Pending Medications Current Medications Oxycodone/ Acetaminophen (Percocet 5/325) 1 tab PRN Q4HRS PRN PO PAIN Last administered on 03/27/19at 06:48; Start 03/22/19 at 15:30; Stop 03/27/19 at 10:44; Status DC Cyclobenzaprine HCl (Flexeril) 10 mg PRN Q6HRS PRN PO MUSCLE SPASMS Last administered on 03/29/19at 08:16; Start 03/22/19 at 15:30 Morphine Sulfate (Morphine Sulfate) 4 mg PRN Q2HR PRN IV PAIN, MOD TO SEVERE La st administered on 03/27/19 02:37; Start 03/22/19 at 15:30 Ketorolac Tromethamine (Toradol 15mg Vial) 15 mg PRN Q6HRS PRN IV MILD PAIN Last administered on 03/27/19 09:02; Start 03/22/19 at 15:30; Stop 03/27/19 at 15:29; Status DC Lidocaine (Lidoderm) 1 patch DAILY TD Last administered on 03/29/19 08:20; Start 03/22/19 at 16:00 Miscellaneous (Lidoderm Patch Removal) 1 ea QHS MC Last administered on 03/28/19 21:00; Start 03/22/19 at 21:00 Trazodone HCl (Desyrel) 50 mg QHS PO Last administered on 03/28/19 21:27; Start 03/22/19 at 21:00 Ondansetron HCl (Zofran) 4 mg PRN Q6HRS PRN IV NAUSEA/VOMITING; Start 03/23/19 at 13:00; Stop 03/24/19 at 12:59; Status DC Fentanyl Citrate (Fentanyl 2ml Vial) 25 mcg PRN Q5MIN PRN IV MILD PAIN; Start 03/23/19 at 13:00; Stop 03/24/19 at 12:59; Status DC Fentanyl Citrate (Fentanyl 2ml Vial) 50 mcg PRN Q5MIN PRN IV MODERATE TO SEVERE PAIN; Start 03/23/19 at 13:00; Stop 03/24/19 at 12:59; Status DC Morphine Sulfate (Morphine Sulfate) 1 mg PRN Q10MIN PRN IV SEVERE PAIN; Start 03/23/19 at 13:00; Stop 03/24/19 at 12:59; Status DC Ringer's Solution 1,000 ml @ 30 mls/hr Q24H IV Last administered on 03/23/19at 13:45; Start 03/23/19 at 12:57; Stop 03/24/19 at 00:56; Status DC Hydromorphone HCl (Dilaudid) 0.5 mg PRN Q10MIN PRN IV SEV PAIN, Second choice; Start 03/23/19 at 13:00; Stop 03/24/19 at 12:59; Status DC Prochlorperazine Edisylate (Compazine) 5 mg PACU PRN PRN IV NAUSEA, MRX1; Start 03/23/19 at 13:00; Stop 03/24/19 at 12:59; Status DC Fentanyl (Duragesic 25mcg/ Hr Patch) 1 patch Q3DAYS TD Last administered on 03/29/19at 08:13; Start 03/23/19 at 14:00 Benzocaine (Hurricaine One) 3 spray 1X ONCE MM Last administered on 03/23/19at 14:45; Start 03/23/19 at 13:45; Stop 03/23/19 at 13:50; Status DC Lidocaine HCl (Glydo (Lidocaine) Jelly) 1 gordy 1X ONCE MM ; Start 03/23/19 at 13:45; Stop 03/23/19 at 13:50; Status DC Lidocaine HCl (Viscous Lidocaine) 15 ml 1X ONCE SWSW ; Start 03/23/19 at 13:45; Stop 03/23/19 at 13:50; Status DC Lidocaine HCl (Xylocaine 2% Topical 30gm Tube) 1 gordy 1X ONCE TP Last administered on 03/23/19at 13:45; Start 03/23/19 at 14:00; Stop 03/23/19 at 14:01; Status DC Lidocaine HCl (Viscous Lidocaine) 15 ml STK-MED ONCE .ROUTE ; Start 03/23/19 at 13:51; Stop 03/23/19 at 13:52; Status DC Propofol 20 ml @ As Directed STK-MED ONCE IV ; Start 03/23/19 at 14:44; Stop 03/23/19 at 14:45; Status DC Lidocaine/Sodium Bicarbonate (Buffered Lidocaine 1%) 3 ml STK-MED ONCE .ROUTE ; Start 03/24/19 at 13:21; Stop 03/24/19 at 13:22; Status DC Midazolam HCl (Versed) 2 mg STK-MED ONCE .ROUTE ; Start 03/24/19 at 13:23; Stop 03/24/19 at 13:24; Status DC Fentanyl Citrate (Fentanyl 2ml Vial) 100 mcg STK-MED ONCE .ROUTE ; Start 03/24/19 at 13:23; Stop 03/24/19 at 13:24; Status DC Lidocaine/Sodium Bicarbonate (Buffered Lidocaine 1%) 3 ml 1X ONCE IJ Last administered on 03/24/19at 14:20; Start 03/24/19 at 13:30; Stop 03/24/19 at 13:35; Status DC Midazolam HCl (Versed) 2 mg 1X ONCE IV Last administered on 03/24/19 14:20; Start 03/24/19 at 13:30; Stop 03/24/19 at 13:35; Status DC Fentanyl Citrate (Fentanyl 2ml Vial) 100 mcg 1X ONCE IV Last administered on 03/24/19 14:19; Start 03/24/19 at 13:30; Stop 03/24/19 at 13:35; Status DC Metoprolol Tartrate (Lopressor) 25 mg BID PO Last administered on 03/29/19 08:12; Start 03/24/19 at 21:00 Ceftriaxone Sodium (Rocephin) 1 gm Q24H IVP Last administered on 03/29/19 08:21; Start 03/25/19 at 10:00 Lactobacillus Rhamnosus (Culturelle) 1 cap BID PO Last administered on 03/29/19 08:12; Start 03/25/19 at 21:00 Ferrous Sulfate (Feosol) 325 mg BIDWMEALS PO Last administered on 03/29/19 08:12; Start 03/25/19 at 17:00 Senna/Docusate Sodium (Senna Plus) 2 tab PRN BID PRN PO CONSTIPATION; Start 03/25/19 at 21:00 Polyethylene Glycol (miraLAX PACKET) 17 gm DAILY PO Last administered on 03/25/19at 22:54; Start 03/25/19 at 21:00 Psyllium Hydrophilic Mucilloid (Metamucil Fiber Packet) 1 pkt DAILY PO Last administered on 03/25/19at 22:54; Start 03/25/19 at 21:00 Vancomycin HCl (Vanco Per Pharmacy) 1 each PRN DAILY PRN MC SEE COMMENTS Last administered on 03/29/19at 10:27; Start 03/26/19 at 09:15; Stop 03/29/19 at 11:28; Status DC Vancomycin HCl 1.75 gm/Sodium Chloride 500 ml @ 250 mls/hr 1X ONCE IV Last administered on 03/26/19at 09:52; Start 03/26/19 at 10:00; Stop 03/26/19 at 11 :59; Status DC Vancomycin HCl 1 gm/Sodium Chloride 250 ml @ 250 mls/hr Q12H IV Last administered on 03/27/19 22:57; Start 03/26/19 at 22:00; Stop 03/27/19 at 23:17; Status DC Vancomycin HCl (Vancomycin Trough Level) 1 each 1X ONCE MC Last administered on 03/27/19 21:30; Start 03/27/19 at 21:30; Stop 03/27/19 at 21:31; Status DC Oxycodone/ Acetaminophen (Percocet 5/325) 2 tab PRN Q4HRS PRN PO PAIN Last administered on 03/29/19 12:11; Start 03/27/19 at 10:45 Duloxetine HCl (Cymbalta) 30 mg DAILY PO Last administered on 03/28/19 09:21; Start 03/27/19 at 13:30; Stop 03/28/19 at 19:56; Status DC Gabapentin (Neurontin) 300 mg QHS PO Last administered on 03/28/19 21:27; Start 03/27/19 at 21:00 Vancomycin HCl 1.25 gm/Sodium Chloride 250 ml @ 167 mls/hr Q12H IV Last administered on 03/29/19 10:01; Start 03/28/19 at 10:00; Stop 03/29/19 at 11:28; Status DC Vancomycin HCl (Vancomycin Trough Level) 1 each 1X ONCE MC Last administered on 03/29/19 09:30; Start 03/29/19 at 09:30; Stop 03/29/19 at 11:28; Status DC Active Scripts Active Reported No Known Medications Prior To Admisstion (Info) Each 1 Each MC DAILY Vitals/I & O Vital Sign - Last 24 Hours 03/28/19 03/28/19 03/28/19 03/28/19 15:00 15:38 19:00 19:45 Temp 97.7 98.2 97.7 98.2 Pulse 89 89 Resp 18 18 B/P (MAP) 145/57 (86) 130/66 (87) Pulse Ox 95 92 91 O2 Delivery Room Air Room Air Room Air Room Air O2 Flow Rate 2.0 2.0 03/28/19 03/28/19 03/29/19 03/29/19 21:27 23:00 03:00 07:00 Temp 97.9 97.5 97.9 97.9 97.5 97.9 Pulse 89 70 82 93 Resp 18 18 18 B/P (MAP) 130/66 97/49 (65) 112/59 (76) 156/85 (108) Pulse Ox 92 92 89 O2 Delivery Room Air Room Air Room Air 03/29/19 03/29/19 03/29/19 03/29/19 07:33 08:12 08:13 09:09 Pulse 93 B/P (MAP) 156/85 O2 Delivery Room Air Room Air Room Air 03/29/19 03/29/19 11:00 12:11 Temp 97.9 97.9 Pulse 65 Resp 18 B/P (MAP) 120/61 (80) Pulse Ox 92 92 O2 Delivery Room Air Room Air Intake and Output 03/28/19 03/28/19 03/29/19 15:00 23:00 07:00 Intake Total 660 ml 660 ml 200 ml Balance 660 ml 660 ml 200 ml JAUN BENITEZ MD March 29, 2019 12:22
--- NOTE | 2019-03-29 13:02 | NUR ---
Pt discharging with outpatient infusion at [facility] at 9am daily and [facility]. No further SW needs.
[2019-03-29] MEDS ORDERED: CYCL10TA2 PO (13:21)
[2019-03-29] MEDS ORDERED: OXYC1TAB15 PO (13:21)
[2019-03-29] MEDS ORDERED: GABA300C18 PO (13:21)
[2019-03-29] MEDS ORDERED: SENN-22 PO (13:21)
[2019-03-29] MEDS ORDERED: FERR325T72 PO (13:21)
--- NOTE | 2019-03-29 13:24 | SNU/HH DC ---
DISCHARGE ORDERS DISCHARGE INFORMATION: DISCHARGE DATE: March 29, 2019 CONDITION ON DISCHARGE: Stable CODE STATUS: Code Status: Full POST DISCHARGE ORDERS: ACTIVITY ORDERS: Activity as tolerated WEIGHT BEARING STATUS: As tolerated DIET AFTER DISCHARGE: Cardiac CHECKS AFTER DISCHARGE: CHECKS AFTER DISCHARGE: Check blood press - daily, Check your Temp as needed COMMENTS: T1 FOLLOW-UP: PHYSICIAN FOLLOW-UP: Dr. Cheatham in 2 weeks. ADDITIONAL FOLLOW-UP: Primary Care Physician within 1 week. TREATMENT/EQUIPMENT ORDERS: ADAPTIVE EQUIPMENT NEEDED: None Physical Therapy For: Evalulation/Treatment Occupational Therapy For: Evaluation/Treatment DISCHARGE MEDICATIONS: Home Meds Active Scripts Ferrous Sulfate (FEOSOL) 325 Mg Tablet, 325 MG PO BIDWMEALS for anemia for 30 Days, #60 TAB Prov:JAUN BENITEZ MD 03/29/19 Gabapentin (GABAPENTIN) 300 Mg Capsule, 300 MG PO QHS for pain for 7 Days, #7 CAP Prov:JAUN BENITEZ MD 03/29/19 Sennosides/Docusate Sodium (SENNA-TIME S TABLET) 1 Each Tablet, 2 TAB PO PRN BID PRN for CONSTIPATION for 7 Days, #14 TAB Prov:JAUN BENITEZ MD 03/29/19 Cyclobenzaprine Hcl (CYCLOBENZAPRINE HCL) 10 Mg Tablet, 10 MG PO PRN Q6HRS PRN for MUSCLE SPASMS for 5 Days, #20 TAB Prov:JAUN BENITEZ MD 03/29/19 Oxycodone/Apap 5-325 (PERCOCET 5-325 MG TABLET ) 1 Each Tablet, 2 TAB PO PRN Q4HRS PRN for PAIN for 5 Days, #30 TAB Prov:JAUN BENITEZ MD 03/29/19 Reported Medications Info (NO KNOWN MEDICATIONS PRIOR TO ADMISSTION) Each, 1 EACH MC DAILY for per pt , EACH 03/22/19 JAUN BENITEZ MD March 29, 2019 13:24
--- NOTE | 2019-03-29 13:32 | PDOC3 ---
Discharge Summary Visit Information Date of Admission: March 22, 2019 Date of Discharge: March 29, 2019 Admitting Diagnosis Comment: back pain Final Diagnosis Discitis Brief Hospital Course Allergies Allergies Coded Allergies Type Severity Reaction Last Updated Verified No Known Drug Allergies 03/22/19 No Vital Signs Vital Signs Date Time Temp Pulse Resp B/P (MAP) Pulse Ox O2 Delivery O2 Flow Rate FiO2 03/29/19 13:11 92 Room Air 03/29/19 11:00 97.9 65 18 120/61 (80) 97.9 03/28/19 19:45 2.0 Lab Results Laboratory Tests Test 03/27/19 22:15 03/28/19 06:40 03/29/19 09:30 Vancomycin Level Trough 13.4 mcg/mL (10.0-20.0) 17.1 mcg/mL (10.0-20.0) Vancomycin Last Dose Date Unk 03/28/19 Vancomycin Last Dose Time Unk 2200 White Blood Count 7.9 x10^3/uL (4.0-11.0) Red Blood Count 2.95 x10^6/uL (3.50-5.40) Hemoglobin 8.4 g/dL (12.0-15.5) Hematocrit 25.5 % (36.0-47.0) Mean Corpuscular Volume 86 fL (79-100) Mean Corpuscular Hemoglobin 28 pg (25-35) Mean Corpuscular Hemoglobin Concent 33 g/dL (31-37) Red Cell Distribution Width 15.7 % (11.5-14.5) Platelet Count 330 x10^3/uL (140-400) Neutrophils (%) (Auto) 81 % (31-73) Lymphocytes (%) (Auto) 8 % (24-48) Monocytes (%) (Auto) 7 % (0-9) Eosinophils (%) (Auto) 4 % (0-3) Basophils (%) (Auto) 0 % (0-3) Neutrophils # (Auto) 6.4 x10^3uL (1.8-7.7) Lymphocytes # (Auto) 0.6 x10^3/uL (1.0-4.8) Monocytes # (Auto) 0.6 x10^3/uL (0.0-1.1) Eosinophils # (Auto) 0.3 x10^3/uL (0.0-0.7) Basophils # (Auto) 0.0 x10^3/uL (0.0-0.2) Sodium Level 135 mmol/L (136-145) Potassium Level 5.6 mmol/L (3.5-5.1) Chloride Level 100 mmol/L (98-107) Carbon Dioxide Level 30 mmol/L (21-32) Anion Gap 5 (6-14) Blood Urea Nitrogen 7 mg/dL (7-20) Creatinine 0.7 mg/dL (0.6-1.0) Estimated GFR (Cockcroft-Gault) 82.5 Glucose Level 113 mg/dL (70-99) Calcium Level 8.7 mg/dL (8.5-10.1) Laboratory Tests Test 03/29/19 09:30 Vancomycin Level Trough 17.1 mcg/mL (10.0-20.0) Vancomycin Last Dose Date 03/28/19 Vancomycin Last Dose Time 2200 Brief Hospital Course 73 year old presented with Acute back pain. She had been admitted to [facility] 1.5 days prior for acute back pain, she was mowing her yard, did well, then went to bed, and the next day could not get out of bed. Thoracic MRI shows T10- 11 disc inflammatory process and endplate as well. plain film showed possible compression fx at T12, MRI shows T10-11 lucency in disc, physiatry consulted - s/p IR biopsy for discitis, sed rate and crp highly elevated, consulted ID. patient was started on IV abx for GPC from back cultures. will be discharged on Rocephin for 6 weeks with daily labs patient plans to come to [facility] for daily infusions. patient had Heart murmur - mitral valve flair leaflet with regurgitation, consulted cardiology. ADALBERTO showed mitral regurgitation with flail leaflet. she did have Anemia, hgb 8.5, iron level low, TIBC low as chronic disease, b12 WNL, retic WNL, possibly hemolyzing from flail valve or possibly with infection of spine. will be discharged on iron. patient also treated for UTI - 100K GNR from [place] culture. she did have mild confusion which resolved. patient will be given pain meds at discharge. daughter at bedside. Discharge Information Condition at Discharge: Improved Follow Up: Weeks Disposition/Orders: D/C to Home Scheduled Ferrous Sulfate (Feosol) 325 Mg Tablet, 325 MG PO BIDWMEALS for anemia for 30 Days, #60 Prescribed by: JAUN BENITEZ MD on 03/29/19 1321 Gabapentin (Gabapentin) 300 Mg Capsule, 300 MG PO QHS for pain for 7 Days, #7 Prescribed by: JAUN BENITEZ MD on 03/29/19 1321 Info (No Known Medications Prior To Admisstion) Each, 1 EACH MC DAILY for per pt , (Reported) Entered as Reported by: RICA HUBBARD on 03/22/192017 Last Action: New Order on 03/22/192017 by RICA HUBBARD Scheduled PRN Cyclobenzaprine Hcl (Cyclobenzaprine Hcl) 10 Mg Tablet, 10 MG PO PRN Q6HRS PRN for MUSCLE SPASMS for 5 Days, #20 Prescribed by: JAUN BENITEZ MD on 03/29/19 1321 Oxycodone/Apap 5-325 (Percocet 5-325 Mg Tablet ) 1 Each Tablet, 2 TAB PO PRN Q4HRS PRN for PAIN for 5 Days, #30 Prescribed by: JAUN BENITEZ MD on 03/29/19 1321 Sennosides/Docusate Sodium (Senna-Time S Tablet) 1 Each Tablet, 2 TAB PO PRN BID PRN for CONSTIPATION for 7 Days, #14 Prescribed by: JAUN BENITEZ MD on 03/29/19 1321 JAUN BENITEZ MD March 29, 2019 13:32
--- NOTE | 2019-03-29 14:00 | SNU/HH DC ---
DISCHARGE WITH HOME HEALTH DISCHARGE INFORMATION: Discharge Date: March 29, 2019 Condition on Discharge: Stable CODE STATUS: Code Status: Full HOME HEALTH: Face to Face: I certify this patient is under my care and that I, or a nurse practitioner or [employer] assistant manager working with me, had a face to face encounter that meets the physician face to face encounter requirements with this patient on []. RN For Eval/Treatment: Yes Physical Therapy For: Evalulation/Treatment Occupational Therapy For: Evaluation/Treatment Home Health Aide For: Other (IV line) Pt Meets Homebound Status: Limited distance walking POST DISCHARGE ORDERS: Activity Instructions for Disc: Activity as tolerated Weight Bearing Status after Di: As tolerated DIET AFTER DISCHARGE: Cardiac CHECKS AFTER DISCHARGE: Checks after discharge: Check blood press - daily, Check your Temp as needed Comment: T1 FOLLOW-UP: Follow up with: Dr. Cheatham in 2 weeks. Follow Up With: Primary Care Physician within 1 week. TREATMENT/EQUIPMENT ORDERS: Adaptive Equipment Issued: None CERTIFICATION STATEMENT: Certification Statement: Certification Statement: Based on the above finding, I certify that this patient is confined to the home and needs intermittent senior living care, physical therapy and/or speech therapy, or continues to need occupational therapy.~ This patient is under my care, and I have initiated the establishment of the plan of care.~ This patient will be followed by myself or a community physician who will periodically review the plan of care. Home Meds Active Scripts Ferrous Sulfate (FEOSOL) 325 Mg Tablet, 325 MG PO BIDWMEALS for anemia for 30 Days, #60 TAB Prov:JANU BENITEZ MD 03/29/19 Gabapentin (GABAPENTIN) 300 Mg Capsule, 300 MG PO QHS for pain for 7 Days, #7 CAP Prov:JAUN BENITEZ MD 03/29/19 Sennosides/Docusate Sodium (SENNA-TIME S TABLET) 1 Each Tablet, 2 TAB PO PRN BID PRN for CONSTIPATION for 7 Days, #14 TAB Prov:JAUN BENITEZ MD 03/29/19 Cyclobenzaprine Hcl (CYCLOBENZAPRINE HCL) 10 Mg Tablet, 10 MG PO PRN Q6HRS PRN for MUSCLE SPASMS for 5 Days, #20 TAB Prov:JAUN BENITEZ MD 03/29/19 Oxycodone/Apap 5-325 (PERCOCET 5-325 MG TABLET ) 1 Each Tablet, 2 TAB PO PRN Q4HRS PRN for PAIN for 5 Days, #30 TAB Prov:JAUN BENITEZ MD 03/29/19 Reported Medications Info (NO KNOWN MEDICATIONS PRIOR TO ADMISSTION) Each, 1 EACH MC DAILY for per pt , EACH 03/22/19 JAUN BENITEZ MD March 29, 2019 14:00
--- NOTE | 2019-03-29 14:05 | NUR ---
Discharge Note: [facility] [place] Discharge instructions and discharge home medications reviewed with Family Member and a copy given. All questions have been answered and understanding verbalized. The following instructions and handouts were given: information about back pain, UTI, outpatient [facility] appointments for IV antibiotics, etc. Discontinued lines and drains: Right upper arm single lumen PICC line left in place for outpatient IV antibiotic therapy. Patient discharged to home with home health with daughter, wheelchair used for mobility to discharge vehicle.
== END 2019-03-29 14:05 | disposition home health service (06) | DRG 871 ==
LOC: 4 NORTH 14:30
PROVIDERS: ADMIT Internal Medicine; ATTEND Internal Medicine
PROC: 0RB93ZX Excision of Thoracic Vertebral Disc, Percutaneous Approach, Diagnostic (ICD-10-PCS; principal; 2019-03-25)
DX: A41.9 Sepsis, unspecified organism (principal); E43 Unspecified severe protein-calorie malnutrition; M48.54XA Collapsed vertebra, not elsewhere classified, thoracic region, initial encounter for fracture; M54.9 Dorsalgia, unspecified; D63.8 Anemia in other chronic diseases classified elsewhere; I34.0 Nonrheumatic mitral (valve) insufficiency
CPT/HCPCS: 36415; 36569; 62267; 72146; 77003; 80048; 80053; 80061; 80202; 82306; 82607; 83540; 83550; 83615; 84145; 85007; 85025; 85045; 85610; 85651; 85730; 86140; 86850; 86900; 86901; 87071; 87075; 87102; 87116; 93005; 93306; 93312; 93325; 99152; 99153; J0696; J1885; J2250; J2270; J2704; J3010; J3370; J7040; J7050; J7120; 97110; 97116; 97530; 97535; J7030